=== PATIENT | female | born 1940 | race Caucasian/White ===

== ENCOUNTER → 2016-08-04 | Outpatient (CLI) | payer MEDICARE, BC ==
--- NOTE | 2016-08-04 10:56 | CR ---
EXAMINATION: Two-view chest (PA and Lateral views). HISTORY: Cough. FINDINGS: The trachea is midline. The cardiomediastinal silhouette is within normal limits. No pulmonary infil trates, effusions or pneumothorax. There is mild hyperinflation and interstitial prominence. Aortic calcifications are noted. Osseous structures appear unremarkable. IMPRESSION: No acute cardiopulmonary process.
== END ==
LOC: MW.CHFP 09:35
PROVIDERS: ATTEND Physician Assistant
DX: R05 Cough (principal); J01.00 Acute maxillary sinusitis, unspecified; B96.89 Other specified bacterial agents as the cause of diseases classified elsewhere; R19.7 Diarrhea, unspecified; Z87.891 Personal history of nicotine dependence
CPT/HCPCS: 36415; 71020; 71020-26; 85025; 99203

== ENCOUNTER 2016-08-08 09:06 | Emergency (ER) | payer MEDICARE, BC ==
[2016-08-08] MEDS ORDERED: Sodium Chloride 0.9% 10 ML Syringe FLUSH PRN (09:38)
[2016-08-08] MEDS ORDERED: Sodium Chloride 0.9% 2.5 ML Syringe FLUSH PRN (09:38)
[2016-08-08] MEDS ORDERED: Sodium Chloride 0.9% 1,000 ML IV ONE (09:39)
--- NOTE | 2016-08-08 10:41 | EDM.PDOC ---
ED HPI GENERAL MEDICAL PROBLEM - General Chief Complaint: General Stated Complaint: WEAK Time Seen by Provider: 08/08/16 09:30 Source of Information: Reports: Patient History Limitations: Reports: No limitations - History of Present Illness INITIAL COMMENTS - FREE TEXT/NARRATIVE: History of present illness: [] Patient has had 3 days of diarrhea approximately 3-4 times a day last week and has been having progressive weakness. She denies any fevers or chills, abdominal pain, nausea or vomiting, and she is not had diarrhea for the last [address] Leggett and had some labs checked which were normal. She states her symptoms are not improving. She also has a cough and states that she had a chest x-ray in Dr. Leggett's office which was normal. Review of systems: As per history of present illness and below otherwise all systems reviewed and negative. Past medical history: As per history of present illness and as reviewed below otherwise noncontributory. Surgical history: As per history of present illness and as reviewed below otherwise noncontributory. Social history: No reported history of drug or alcohol abuse. Family history: As per history of present illness and as reviewed below otherwise noncontributory. Physical exam: General: Well developed, well nourished in NAD HEENT: Atraumatic, normocephalic, pupils reactive, negative for conjunctival pallor or scleral icterus, mucous membranes moist, throat clear, neck supple, nontender, trachea midline. Lungs: Clear to auscultation, breath sounds equal bilaterally, chest nontender. Heart: S1S2, regular, negative for clicks, rubs, or JVD. Abdomen: Soft, nondistended, nontender. Negative for masses or hepatosplenomegaly. Negative for costovertebral tenderness. Pelvis: Stable nontender. Genitourinary: Deferred. Rectal: Deferred. Extremities: Atraumatic, negative for cords or calf pain. Neurovascular unremarkable. Neuro: Awake, alert, oriented. Cranial nerves II through XII unremarkable. Cerebellum unremarkable. Motor and sensory unremarkable throughout. Exam nonfocal. Diagnostics: [] Urine labs were checked Therapeutics: [] She was hydrated with IV fluids Impression: [] UTI Plan: [] Macrobid twice a day and Tessalon Perles for cough Definitive disposition and diagnosis as appropriate pending reevaluation and review of above. - Related Data Allergies Allergy/AdvReac Type Severity Reaction Status Date / Time No Known Allergies Allergy Verified 08/08/16 09:30 Home Meds: Home Meds Benzonatate [Tessalon Perles] 100 mg PO BID PRN #10 cap 08/08/16 [Rx] Nitrofurantoin Macrocrystal [Macrodantin] 100 mg PO BID #14 capsule 08/08/16 [Rx ] Past Medical History - Past Health History Medical/Surgical History: Denies Medical/Surgical History Social & Family History - Family History Family Medical History: Noncontributory - Tobacco Use Smoking Status *Q: Former Smoker - Caffeine Use Caffeine Use: Reports: None, Coffee Caffeine Use Comment: 3 drinks/day - Recreational Drug Use Recreational Drug Use: No ED ROS GENERAL - Review of Systems Review Of Systems: See Below (See history of present illness) ED EXAM, GENERAL - Physical Exam Exam: See Below (See history of present illness) Course - Vital Signs Last Recorded V/S: Last Vital Signs Temp 36.4 C 08/08/16 09:31 Pulse 93 08/08/16 09:31 Resp 16 08/08/16 09:31 BP 159/86 H 08/08/16 09:31 Pulse Ox 99 08/08/16 09:31 - Orders/Labs/Meds Orders: Active Orders 24 hr Category Date Time Status CULTURE URINE [RM] Stat Lab 08/08/16 10:10 Received Sodium Chloride 0.9% [Saline Flush] Med 08/08/16 09:38 Active 10 ml FLUSH ASDIRECTED PRN Sodium Chloride 0.9% [Saline Flush] Med 08/08/16 09:38 Active 2.5 ml FLUSH ASDIRECTED PRN Peripheral IV Insertion Adult [OM.PC] Stat Oth 08/08/16 09:38 Ordered Medication Orders Sodium Chloride (Saline Flush) 10 ml FLUSH ASDIRECTED PRN PRN Reason: Keep Vein Open Sodium Chloride (Saline Flush) 2.5 ml FLUSH ASDIRECTED PRN PRN Reason: Keep Vein Open Labs: Laboratory Tests 08/08/16 08/08/16 08/08/16 Range/Units 09:45 09:45 09:45 WBC 7.15 (4.0-11.0) K/uL RBC 4.55 (4.30-5.90) M/uL Hgb 13.5 (12.0-16.0) g/dL Hct 41.0 (36.0-46.0) % MCV 90.1 (80.0-98.0) fL MCH 29.7 (27.0-32.0) pg MCHC 32.9 (31.0-37.0) g/dL RDW Std Deviation 41.5 (28.0-62.0) fl RDW Coeff of Tulio 13 (11.0-15.0) % Plt Count 234 (150-400) K/uL MPV 9.00 (7.40-12.00) fL Neut % (Auto) 71.9 (48.0-80.0) % Lymph % (Auto) 21.7 (16.0-40.0) % Iron % (Auto) 6.2 (0.0-15.0) % Eos % (Auto) 0.1 (0.0-7.0) % Baso % (Auto) 0.1 (0.0-1.5) % Neut # (Auto) 5.1 (1.4-5.7) K/uL Lymph # (Auto) 1.6 (0.6-2.4) K/uL Iron # (Auto) 0.4 (0.0-0.8) K/uL Eos # (Auto) 0.0 (0.0-0.7) K/uL Baso # (Auto) 0.0 (0.0-0.1) K/uL Nucleated RBC % 0.0 /100WBC Nucleated RBCs # 0 K/uL Sodium 142 (136-146) mmol/L Potassium 3.9 (3.5-5.1) mmol/L Chloride 111 H (98-110) mmol/L Carbon Dioxide 21 (21-31) mmol/L BUN 18 (6.0-23.0) mg/dL Creatinine 1.1 (0.6-1.5) mg/dL Est Cr Clr Drug Dosing 41.23 mL/min Estimated GFR (MDRD) 48.4 ml/min Glucose 117 H (60-110) mg/dL Calcium 9.4 (8.8-10.8) mg/dL Total Bilirubin 0.9 (0.1-1.5) mg/dL AST 18 (5-40) IU/L ALT 14 (8-54) IU/L Alkaline Phosphatase 45 (40-150) Troponin I < 0.10 (0.0-0.29) NG/ML Total Protein 7.5 (6.0-8.0) g/dL Albumin 4.0 (3.4-4.8) g/dL Globulin 3.5 (2.0-3.5) g/dL Albumin/Globulin Ratio 1.1 L (1.3-2.8) Urine Color Urine Appearance Urine pH (5.0-8.0) Ur Specific [place] (1.001-1.035) Urine Protein (NEGATIVE) mg/dL Urine Glucose (UA) (NEGATIVE) mg/dL Urine Ketones (NEGATIVE) mg/dL Urine Occult Blood (NEGATIVE) Urine Nitrite (NEGATIVE) Urine Bilirubin (NEGATIVE) Urine Urobilinogen (<2.0) EU/dL Ur Leukocyte Esterase (NEGATIVE) Urine RBC (0-2/HPF) Urine WBC (0-5/HPF) Ur Epithelial Cells (NONE-FEW) Urine Bacteria (NEGATIVE) 08/08/16 Range/Units 10:10 WBC (4.0-11.0) K/uL RBC (4.30-5.90) M/uL Hgb (12.0-16.0) g/dL Hct (36.0-46.0) % MCV (80.0-98.0) fL MCH (27.0-32.0) pg MCHC (31.0-37.0) g/dL RDW Std Deviation (28.0-62.0) fl RDW Coeff of Tulio (11.0-15.0) % Plt Count (150-400) K/uL MPV (7.40-12.00) fL Neut % (Auto) (48.0-80.0) % Lymph % (Auto) (16.0-40.0) % Iron % (Auto) (0.0-15.0) % Eos % (Auto) (0.0-7.0) % Baso % (Auto) (0.0-1.5) % Neut # (Auto) (1.4-5.7) K/uL Lymph # (Auto) (0.6-2.4) K/uL Iron # (Auto) (0.0-0.8) K/uL Eos # (Auto) (0.0-0.7) K/uL Baso # (Auto) (0.0-0.1) K/uL Nucleated RBC % /100WBC Nucleated RBCs # K/uL Sodium (136-146) mmol/L Potassium (3.5-5.1) mmol/L Chloride (98-110) mmol/L Carbon Dioxide (21-31) mmol/L BUN (6.0-23.0) mg/dL Creatinine (0.6-1.5) mg/dL Est Cr Clr Drug Dosing mL/min Estimated GFR (MDRD) ml/min Glucose (60-110) mg/dL Calcium (8.8-10.8) mg/dL Total Bilirubin (0.1-1.5) mg/dL AST (5-40) IU/L ALT (8-54) IU/L Alkaline Phosphatase (40-150) Troponin I (0.0-0.29) NG/ML Total Protein (6.0-8.0) g/dL Albumin (3.4-4.8) g/dL Globulin (2.0-3.5) g/dL Albumin/Globulin Ratio (1.3-2.8) Urine Color YELLOW Urine Appearance CLEAR Urine pH 6.0 (5.0-8.0) Ur Specific [place] >= 1.030 (1.001-1.035) Urine Protein 100 (NEGATIVE) mg/dL Urine Glucose (UA) NEGATIVE (NEGATIVE) mg/dL Urine Ketones 40 H (NEGATIVE) mg/dL Urine Occult Blood LARGE H (NEGATIVE) Urine Nitrite POSITIVE H (NEGATIVE) Urine Bilirubin SMALL H (NEGATIVE) Urine Urobilinogen 1.0 (<2.0) EU/dL Ur Leukocyte Esterase MODERATE (NEGATIVE) Urine RBC 2-3 (0-2/HPF) Urine WBC 8-10 (0-5/HPF) Ur Epithelial Cells FEW (NONE-FEW) Urine Bacteria 1+ H (NEGATIVE) Meds: Medications Generic Name Dose Route Start Last Admin Trade Name Freq PRN Reason Stop Dose Admin Sodium Chloride 10 ml 08/08/16 09:38 Saline Flush FLUSH ASDIRECTED PRN Keep Vein Open Sodium Chloride 2.5 ml 08/08/16 09:38 Saline Flush FLUSH ASDIRECTED PRN Keep Vein Open Discontinued Medications Generic Name Dose Route Start Last Admin Trade Name Freq PRN Reason Stop Dose Admin Sodium Chloride 1,000 mls @ 999 mls/hr 08/08/16 09:39 08/08/16 09:52 Normal Saline IV 08/08/16 10:39 999 mls/hr .Bolus ONE Administration Departure - Departure Time of Disposition: 10:53 Disposition: Home, Self-Care 01 Condition: good Clinical Impression: UTI (urinary tract infection) Qualifiers: Urinary tract infection type: site unspecified Hematuria presence: without hematuria Qualified Code(s): N39.0 - Urinary tract infection, site not specified Prescriptions: Benzonatate [Tessalon Perles] 100 mg PO BID PRN #10 cap PRN Reason: Cough Nitrofurantoin Macrocrystal [Macrodantin] 100 mg PO BID #14 capsule Referrals: PCP,None [Primary Care Provider] - Forms: ED Department Discharge Additional Instructions: The following information is given to patients seen in the emergency department who are being discharged to home. This information is to outline your options for follow-up care. We provide all patients seen in our emergency department with a follow-up referral. The need for follow-up, as well as the timing and circumstances, are variable depending upon the specifics of your emergency department visit. If you don't have a primary care physician on staff, we will provide you with a referral. We always advise you to contact your personal physician following an emergency department visit to inform them of the circumstance of the visit and for follow-up with them and/or the need for any referrals to a consulting specialist. The emergency department will also refer you to a specialist when appropriate. This referral assures that you have the opportunity for follow-up care with a specialist. All of these measure are taken in an effort to provide you with optimal care, which includes your follow-up. Under all circumstances we always encourage you to contact your private physician who remains a resource for coordinating your care. When calling for follow-up care, please make the office aware that this follow-up is from your recent emergency room visit. If for any reason you are refused follow-up, please contact the [facility] Emergency Department at and asked to speak to the emergency department charge nurse. Nitrofurantoin and Tessalon Perles were given. [facility] [address] [place] [id number] - My Orders Last 24 Hours: My Active Orders 08/08/16 09:38 Sodium Chloride 0.9% [Saline Flush] 10 ml FLUSH ASDIRECTED PRN Sodium Chloride 0.9% [Saline Flush] 2.5 ml FLUSH ASDIRECTED PRN Peripheral IV Insertion Adult [OM.PC] Stat 08/08/16 10:10 CULTURE URINE [RM] Stat - Assessment/Plan Last 24 Hours: My Active Orders 08/08/16 09:38 Sodium Chloride 0.9% [Saline Flush] 10 ml FLUSH ASDIRECTED PRN Sodium Chloride 0.9% [Saline Flush] 2.5 ml FLUSH ASDIRECTED PRN Peripheral IV Insertion Adult [OM.PC] Stat 08/08/16 10:10 CULTURE URINE [RM] Stat
[2016-08-08 11:18] VITALS: BP 136/78
== END 2016-08-08 11:07 | disposition home or self-care (01) ==
LOC: MW.ED 09:06
DX: N39.0 Urinary tract infection, site not specified (principal); Z87.891 Personal history of nicotine dependence
CPT/HCPCS: 36415; 80053; 81001; 84484; 85025; 87086; 87088; 87186; 96360; 99285; J7040; 99283

== ENCOUNTER → 2016-08-10 | Outpatient (CLI) | payer MEDICARE, BC | LOC: MW.CHFP 08:00 | PROVIDERS: ATTEND Physician Assistant | DX: N39.0 Urinary tract infection, site not specified (principal) | CPT/HCPCS: G0463 ==

== ENCOUNTER → 2016-08-22 | Outpatient (CLI) | payer MEDICARE, BC | END | disposition home or self-care (01) | LOC: MW.CHFP 09:53 | PROVIDERS: ATTEND Physician Assistant | DX: N39.0 Urinary tract infection, site not specified (principal) | CPT/HCPCS: 81001 ==

== ENCOUNTER 2019-01-04 09:14 | Emergency (ER) | payer MEDICARE, BC ==
[2019-01-04] MEDS ORDERED: Sodium Chloride 0.9% 10 ML Syringe FLUSH PRN (09:28)
[2019-01-04] MEDS ORDERED: Sodium Chloride 0.9% 2.5 ML Syringe FLUSH PRN (09:28)
[2019-01-04] MEDS ORDERED: Sodium Chloride 0.9% 1,000 ML IV ONE (09:28)
--- NOTE | 2019-01-04 09:33 | EDM.PDOC ---
ED HPI GENERAL MEDICAL PROBLEM - General Chief Complaint: Neurological Problem Stated Complaint: DIZZINESS Time Seen by Provider: 01/04/19 09:22 - History of Present Illness INITIAL COMMENTS - FREE TEXT/NARRATIVE: HISTORY AND PHYSICAL: History of present illness: Patient is 78-year-old white female presents with concern of an episode of dizziness that she noticed this morning this was upon awakening there is no associated chest pain shortness of breath nausea vomiting she denies any numbness or weakness this has resolved subsequent. Patient denies prior episodes in the past denies history of IA or CVA Review of systems: As per history of present illness and below otherwise all systems reviewed and negative. Past medical history: As per history of present illness and as reviewed below otherwise noncontributory. Surgical history: As per history of present illness and as reviewed below otherwise noncontributory. Social history: No reported history of drug or alcohol abuse. Family history: As per history of present illness and as reviewed below otherwise noncontributory. Physical exam: HEENT: Atraumatic, normocephalic, pupils reactive, negative for conjunctival pallor or scleral icterus, mucous membranes moist, throat clear, neck supple, nontender, trachea midline. Lungs: Clear to auscultation, breath sounds equal bilaterally, chest nontender. Heart: S1S2, regular, negative for clicks, rubs, or JVD. Abdomen: Soft, nondistended, nontender. Negative for masses or hepatosplenomegaly. Negative for costovertebral tenderness. Pelvis: Stable nontender. Genitourinary: Deferred. Rectal: Deferred. Extremities: Atraumatic, negative for cords or calf pain. Neurovascular unremarkable. Neuro: Awake, alert, oriented. Cranial nerves II through XII unremarkable. Cerebellum unremarkable. Motor and sensory unremarkable throughout. Exam nonfocal. 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 - Related Data Allergies Allergy/AdvReac Type Severity Reaction Status Date / Time No Known Allergies Allergy Verified 08/08/16 09:30 Home Meds: Home Meds . [No Known Home Meds] 01/04/19 [History] Past Medical History - Past Health History Medical/Surgical History: Denies Medical/Surgical History Social & Family History - Family History Family Medical History: Noncontributory - Caffeine Use Caffeine Use: Reports: None, Coffee Caffeine Use Comment: 3 drinks/day ED ROS GENERAL - Review of Systems Review Of Systems: ROS reveals no pertinent complaints other than HPI. ED EXAM, GENERAL - Physical Exam Exam: See Below (Dictation) Course - Vital Signs Text/Narrative:: Patient's emergency room course has been unremarkable I discussed with patient admission for observation patient declined she has personal items to attend to and including her who is currently in hospice care she is asymptomatic this point she is advised to follow-up closely with her private medical doctor and agrees. Last Recorded V/S: Last Vital Signs Temp 36.1 C 01/04/19 09:20 Pulse 74 01/04/19 09:20 Resp 18 01/04/19 09:20 BP 141/75 H 01/04/19 09:20 Pulse Ox 100 01/04/19 09:20 - Orders/Labs/Meds Orders: Active Orders 24 hr Category Date Time Status Cardiac Monitoring [RC] . DIRECTED Care 01/04/19 09:27 Active EKG Documentation Completion [RC] STAT Care 01/04/19 09:27 Active Chest 1V Frontal [CR] Stat Exams 01/04/19 09:28 Taken Head wo Cont [CT] Stat Exams 01/04/19 09:28 Taken CULTURE URINE [RM] Stat Lab 01/04/19 09:35 Received Sodium Chloride 0.9% [Saline Flush] Med 01/04/19 09:28 Active 10 ml FLUSH ASDIRECTED PRN Sodium Chloride 0.9% [Saline Flush] Med 01/04/19 09:28 Active 2.5 ml FLUSH ASDIRECTED PRN Saline Lock Insert [OM.PC] Stat Oth 01/04/19 09:27 Ordered Medication Orders Sodium Chloride (Saline Flush) 10 ml FLUSH ASDIRECTED PRN PRN Reason: Keep Vein Open Last Admin: 01/04/19 09:43 Dose: 10 ml Sodium Chloride (Saline Flush) 2.5 ml FLUSH ASDIRECTED PRN PRN Reason: Keep Vein Open Last Admin: 01/04/19 09:44 Dose: 2.5 ml Labs: Laboratory Tests 01/04/19 01/04/19 01/04/19 Range/Units 09:35 09:40 09:40 WBC 6.59 (4.0-11.0) K/uL RBC 4.59 (4.30-5.90) M/uL Hgb 13.5 (12.0-16.0) g/dL Hct 42.6 (36.0-46.0) % MCV 92.8 (80.0-98.0) fL MCH 29.4 (27.0-32.0) pg MCHC 31.7 (31.0-37.0) g/dL RDW Std Deviation 43.8 (28.0-62.0) fl RDW Coeff of Tulio 13 (11.0-15.0) % Plt Count 246 (150-400) K/uL MPV 8.80 (7.40-12.00) fL Neut % (Auto) 57.2 (48.0-80.0) % Lymph % (Auto) 36.4 (16.0-40.0) % [place] % (Auto) 5.5 (0.0-15.0) % Eos % (Auto) 0.3 (0.0-7.0) % Baso % (Auto) 0.6 (0.0-1.5) % Neut # (Auto) 3.8 (1.4-5.7) K/uL Lymph # (Auto) 2.4 (0.6-2.4) K/uL [place] # (Auto) 0.4 (0.0-0.8) K/uL Eos # (Auto) 0.0 (0.0-0.7) K/uL Baso # (Auto) 0.0 (0.0-0.1) K/uL Nucleated RBC % 0.0 /100WBC Nucleated RBCs # 0 K/uL INR 0.99 Sodium (136-145) mmol/L Potassium (3.5-5.1) mmol/L Chloride (98-107) mmol/L Carbon Dioxide (21.0-32.0) mmol/L BUN (7.0-18.0) mg/dL Creatinine (0.6-1.0) mg/dL Est Cr Clr Drug Dosing Estimated GFR (MDRD) ml/min Glucose (74-106) mg/dL Calcium (8.5-10.1) mg/dL Total Bilirubin (0.2-1.0) mg/dL AST (15-37) IU/L ALT (14-63) IU/L Alkaline Phosphatase (46-116) U/L Troponin I (0.000-0.056) ng/mL Total Protein (6.4-8.2) g/dL Albumin (3.4-5.0) g/dL Globulin (2.6-4.0) g/dL Albumin/Globulin Ratio (0.9-1.6) Urine Color YELLOW Urine Appearance CLEAR Urine pH 5.5 (5.0-8.0) Ur Specific [place] >= 1.030 (1.001-1.035) Urine Protein NEGATIVE (NEGATIVE) mg/dL Urine Glucose (UA) NEGATIVE (NEGATIVE) mg/dL Urine Ketones NEGATIVE (NEGATIVE) mg/dL Urine Occult Blood LARGE H (NEGATIVE) Urine Nitrite NEGATIVE (NEGATIVE) Urine Bilirubin NEGATIVE (NEGATIVE) Urine Urobilinogen 0.2 (<2.0) EU/dL Ur Leukocyte Esterase MODERATE H (NEGATIVE) Urine RBC 10-15 (0-2/HPF) Urine WBC 8-10 (0-5/HPF) Ur Epithelial Cells MODERATE (NONE-FEW) Amorphous Sediment LIGHT (NEGATIVE) Urine Bacteria 1+ H (NEGATIVE) Urine Mucus LIGHT (NONE-MOD) 01/04/19 Range/Units 09:40 WBC (4.0-11.0) K/uL RBC (4.30-5.90) M/uL Hgb (12.0-16.0) g/dL Hct (36.0-46.0) % MCV (80.0-98.0) fL MCH (27.0-32.0) pg MCHC (31.0-37.0) g/dL RDW Std Deviation (28.0-62.0) fl RDW Coeff of Tulio (11.0-15.0) % Plt Count (150-400) K/uL MPV (7.40-12.00) fL Neut % (Auto) (48.0-80.0) % Lymph % (Auto) (16.0-40.0) % [place] % (Auto) (0.0-15.0) % Eos % (Auto) (0.0-7.0) % Baso % (Auto) (0.0-1.5) % Neut # (Auto) (1.4-5.7) K/uL Lymph # (Auto) (0.6-2.4) K/uL [place] # (Auto) (0.0-0.8) K/uL Eos # (Auto) (0.0-0.7) K/uL Baso # (Auto) (0.0-0.1) K/uL Nucleated RBC % /100WBC Nucleated RBCs # K/uL INR Sodium 144 (136-145) mmol/L Potassium 3.8 (3.5-5.1) mmol/L Chloride 109 H (98-107) mmol/L Carbon Dioxide 25.2 (21.0-32.0) mmol/L BUN 15 (7.0-18.0) mg/dL Creatinine 1.4 H (0.6-1.0) mg/dL Est Cr Clr Drug Dosing TNP Estimated GFR (MDRD) 36.5 ml/min Glucose 101 (74-106) mg/dL Calcium 9.4 (8.5-10.1) mg/dL Total Bilirubin 0.7 (0.2-1.0) mg/dL AST 15 (15-37) IU/L ALT 17 (14-63) IU/L Alkaline Phosphatase 52 (46-116) U/L Troponin I < 0.050 (0.000-0.056) ng/mL Total Protein 6.8 (6.4-8.2) g/dL Albumin 3.6 (3.4-5.0) g/dL Globulin 3.2 (2.6-4.0) g/dL Albumin/Globulin Ratio 1.1 (0.9-1.6) Urine Color Urine Appearance Urine pH (5.0-8.0) Ur Specific [place] (1.001-1.035) Urine Protein (NEGATIVE) mg/dL Urine Glucose (UA) (NEGATIVE) mg/dL Urine Ketones (NEGATIVE) mg/dL Urine Occult Blood (NEGATIVE) Urine Nitrite (NEGATIVE) Urine Bilirubin (NEGATIVE) Urine Urobilinogen (<2.0) EU/dL Ur Leukocyte Esterase (NEGATIVE) Urine RBC (0-2/HPF) Urine WBC (0-5/HPF) Ur Epithelial Cells (NONE-FEW) Amorphous Sediment (NEGATIVE) Urine Bacteria (NEGATIVE) Urine Mucus (NONE-MOD) Meds: Medications Generic Name Dose Route Start Last Admin Trade Name Glenn PRN Reason Stop Dose Admin Sodium Chloride 10 ml 01/04/19 09:28 01/04/19 09:43 Saline Flush FLUSH 10 ml ASDIRECTED PRN Administration Keep Vein Open Sodium Chloride 2.5 ml 01/04/19 09:28 01/04/19 09:44 Saline Flush FLUSH 2.5 ml ASDIRECTED PRN Administration Keep Vein Open Discontinued Medications Generic Name Dose Route Start Last Admin Trade Name Jarettq PRN Reason Stop Dose Admin Ciprofloxacin 500 mg 01/04/19 10:34 01/04/19 10:48 Ciprofloxacin Hcl PO 01/04/19 10:35 500 mg ONETIME ONE Administration Sodium Chloride 1,000 mls @ 999 mls/hr 01/04/19 09:28 01/04/19 09:43 Normal Saline IV 01/04/19 10:28 999 mls/hr STAT ONE Administration Departure - Departure Time of Disposition: 11:02 Disposition: Home, Self-Care 01 Condition: Good Clinical Impression: Dizziness, Encounter for medical screening examination - Discharge Information Referrals: PCP,Unknown [Primary Care Provider] - Forms: ED Department Discharge Additional Instructions: The following information is given to patients seen in the emergency department who are being discharged to home. This information is to outline your options for follow-up care. We provide all patients seen in our emergency department with a follow-up referral. The need for follow-up, as well as the timing and circumstances, are variable depending upon the specifics of your emergency department visit. If you don't have a primary care physician on staff, we will provide you with a referral. We always advise you to contact your personal physician following an emergency department visit to inform them of the circumstance of the visit and for follow-up with them and/or the need for any referrals to a consulting specialist. The emergency department will also refer you to a specialist when appropriate. This referral assures that you have the opportunity for followup care with a specialist. All of these measure are taken in an effort to provide you with optimal care, which includes your followup. Under all circumstances we always encourage you to contact your private physician who remains a resource for coordinating your care. When calling for followup care, please make the office aware that this follow-up is from your recent emergency room visit. If for any reason you are refused follow-up, please contact the [facility] emergency department at and asked to speak to the emergency department charge nurse. Follow-up primary medical doctor VALERIA return as needed as discussed - My Orders Last 24 Hours: My Active Orders 01/04/19 09:27 Cardiac Monitoring [RC] . DIRECTED EKG Documentation Completion [RC] STAT Saline Lock Insert [OM.PC] Stat 01/04/19 09:28 Chest 1V Frontal [CR] Stat Head wo Cont [CT] Stat Sodium Chloride 0.9% [Saline Flush] 10 ml FLUSH ASDIRECTED PRN Sodium Chloride 0.9% [Saline Flush] 2.5 ml FLUSH ASDIRECTED PRN 01/04/19 09:35 CULTURE URINE [RM] Stat - Assessment/Plan Last 24 Hours: My Active Orders 01/04/19 09:27 Cardiac Monitoring [RC] . DIRECTED EKG Documentation Completion [RC] STAT Saline Lock Insert [OM.PC] Stat 01/04/19 09:28 Chest 1V Frontal [CR] Stat Head wo Cont [CT] Stat Sodium Chloride 0.9% [Saline Flush] 10 ml FLUSH ASDIRECTED PRN Sodium Chloride 0.9% [Saline Flush] 2.5 ml FLUSH ASDIRECTED PRN 01/04/19 09:35 CULTURE URINE [RM] Stat
[2019-01-04 10:16] LABS: BLOOD UREA NITROGEN,BUN 15 mg/dL (7.0-18.0); CARBON DIOXIDE,CO2 25.2 mmol/L (21.0-32.0); CHLORIDE,CL 109 mmol/L (98-107); GLUCOSE RANDOM 101 mg/dL (74-106); POTASSIUM,K 3.8 mmol/L (3.5-5.1); SODIUM,NA 144 mmol/L (136-145)
[2019-01-04] MEDS ORDERED: Ciprofloxacin 500 MG Tab PO ONE (10:34)
--- NOTE | 2019-01-04 11:14 | CR ---
INDICATION: Pain. Shortness of breath. COMPARISON: Chest x-ray dated 15 November 2018. FINDINGS: A single portable chest x-ray shows a normal cardiac silhouette. The lungs show no focal pulmonary opacities. Sharp pleural margins. No pneumothorax. IMPRESSION: No evidence of acute pulmonary abnormalities. Dictated by Shawn Bryant MD @ 01/04/2019 11:12:25 AM Dictated by: Shawn Bryant MD @ 01/04/2019 11:12:39 (Electronically Signed)
--- NOTE | 2019-01-04 11:17 | CT ---
INDICATION: Headache. Dizziness. Lightheaded. TECHNIQUE: Scanning of the head was performed without IV contrast material. Coronal and sagittal reconstructions were obtained. COMPARISON: None. FINDINGS: No intracranial hemorrhage is demonstrated. No positive mass effect is evident. Differentiation between the cox matter and white matter is preserved. There is mild, nonspecific decreased attenuation in the cerebral white matter which is most likely due to aging/chronic microvascular ischemic disease. The ventricles and other subarachnoid spaces are within normal limits for the patient`s age. No calvarial abnormality is evident. The visualized paranasal and mastoid sinuses are clear. IMPRESSION: 1. No acute abnormality demonstrated. 2. Mild, nonspecific cerebral white matter disease, most likely due to aging/chronic microvascular ischemic disease. Please note that all CT scans at this facility use dose modulation, iterative reconstruction, and/or weight-based dosing when appropriate to reduce radiation dose to as low as reasonably achievable. Dictated by Ildefonso Larson MD @ Jan 04 2019 11:13AM Signed by Dr. Ildefonso Larson @ Jan 04 2019 11:16AM
[2019-01-04 11:47] VITALS: BP 138/74
== END 2019-01-04 11:44 | disposition home or self-care (01) ==
LOC: MW.ED 09:14
DX: R42 Dizziness and giddiness (principal)
CPT/HCPCS: 36415; 70450; 71045; 80053; 81001; 84484; 85025; 85610; 87086; 93005; 96360; 99284; A9270; J7040

== ENCOUNTER 2020-06-04 07:56 | Emergency (ER) | payer MEDICARE, BC ==
[2020-06-04] MEDS ORDERED: Sodium Chloride 0.9% 2.5 ML Syringe FLUSH PRN (08:15)
[2020-06-04] MEDS ORDERED: Meclizine 25 MG Tab PO ONE (08:15)
[2020-06-04] MEDS ORDERED: Sodium Chloride 0.9% 10 ML Syringe FLUSH PRN (08:15)
[2020-06-04] MEDS ORDERED: Sodium Chloride 0.9% 1,000 ML IV ONE (08:15)
--- NOTE | 2020-06-04 08:27 | EDM.PDOC ---
ED HPI GENERAL MEDICAL PROBLEM - General Chief Complaint: General Stated Complaint: DIZZY, LIGHT HEADED, VOMITING Time Seen by Provider: 06/04/20 07:57 Source of Information: Reports: Patient History Limitations: Reports: No Limitations - History of Present Illness INITIAL COMMENTS - FREE TEXT/NARRATIVE: Six 79-year-old female with history of UTI presents with dizziness. She woke up feeling asymptomatic, she was getting up and felt acute onset dizziness. She describes it as that things were going to the right and she was unable to focus. Associated with vomiting. Symptoms lasted about 30 minutes. Patient denies fever, chills, headache, chest pain, shortness of breath, abdominal pain, focal numbness or weakness, tinnitus, hearing loss, dysuria. She did have diarrhea today. ROS: A 10-point review of systems, other than pertinent positives and negatives as stated per HPI, is otherwise negative Past medical history: No additional pertinent history Past Surgical history: No additional pertinent history Social history: No additional pertinent history Family history: No additional pertinent history PHYSICAL EXAM General: AOx4, GCS = 15, No distress HEENT: dry mucous membrane, horizontal fatigable nystagmus. Neck: supple, no meningismus, no Kernig or Brudzinski Cardiac: S1S2 RRR Respiratory: CTAB, no crackles or rales, no wheezing Abdomen: Soft, nontender, no rebound or guarding, nondistended, no pulsatile mass. Back: nontender Musculoskeletal: NVI distally, no deformity Neuro: No focal deficits, CN 2 - 12 WNL. Steady gait - Related Data Allergies Allergy/AdvReac Type Severity Reaction Status Date / Time No Known Allergies Allergy Verified 06/04/20 08:05 Home Meds: Home Meds Meclizine [Antivert] 25 mg PO TID PRN #15 tab 06/04/20 [Rx] Past Medical History - Past Health History Medical/Surgical History: Denies Medical/Surgical History HEENT History: Reports: None Cardiovascular History: Reports: None Respiratory History: Reports: None Gastrointestinal History: Reports: None Genitourinary History: Reports: None [employer] History: Reports: None, Musculoskeletal History: Reports: None Neurological History: Reports: None Psychiatric History: Reports: None Endocrine/Metabolic History: Reports: None Hematologic History: Reports: None Immunologic History: Reports: None Oncologic (Cancer) History: Reports: None Dermatologic History: Reports: None - Infectious Disease History Infectious Disease History: Reports: Chicken Pox, Measles, Mumps - Past Surgical History Head Surgeries/Procedures: Reports: None Social & Family History - Family History Family Medical History: No Pertinent Family History - Tobacco Use Tobacco Use Status *Q: Never Tobacco User - Caffeine Use Caffeine Use: Reports: None, Coffee Caffeine Use Comment: 3 drinks/day - Recreational Drug Use Recreational Drug Use: No ED ROS GENERAL - Review of Systems Review Of Systems: See Below (see dictation) ED EXAM, GENERAL - Physical Exam Exam: See Below (see dictation) #1 Interpretation EKG Interpretation Comments: Heart rate = 63 bpm, normal sinus rhythm, normal QRS interval, no STEMI. EKG and rhythm strip interpreted by me at 0823 Course - Vital Signs Last Recorded V/S: Last Vital Signs Temp 96 F L 06/04/20 08:02 Pulse 76 06/04/20 08:02 Resp 19 06/04/20 08:02 BP 180/76 H 06/04/20 08:02 Pulse Ox 99 06/04/20 08:02 - Orders/Labs/Meds Orders: Active Orders 24 hr Category Date Time Status Cardiac Monitoring [RC] . DIRECTED Care 06/04/20 08:15 Active Pulse Oximetry [RC] ASDIRECTED Care 06/04/20 08:15 Active Sodium Chloride 0.9% [Saline Flush] Med 06/04/20 08:15 Active 10 ml FLUSH ASDIRECTED PRN Sodium Chloride 0.9% [Saline Flush] Med 06/04/20 08:15 Active 2.5 ml FLUSH ASDIRECTED PRN Saline Lock Insert [OM.PC] Stat Oth 06/04/20 08:15 Ordered Medication Orders Sodium Chloride (Saline Flush) 10 ml FLUSH ASDIRECTED PRN PRN Reason: Keep Vein Open Last Admin: 06/04/20 08:32 Dose: 10 ml Documented by: DAVID Sodium Chloride (Saline Flush) 2.5 ml FLUSH ASDIRECTED PRN PRN Reason: Keep Vein Open Last Admin: 06/04/20 08:35 Dose: 2.5 ml Documented by: DAVID Labs: Laboratory Tests 06/04/20 06/04/20 06/04/20 Range/Units 08:30 08:30 10:24 WBC 10.29 (4.0-11.0) K/uL RBC 4.51 (4.30-5.90) M/uL Hgb 13.5 (12.0-16.0) g/dL Hct 41.7 (36.0-46.0) % MCV 92.5 (80.0-98.0) fL MCH 29.9 (27.0-32.0) pg MCHC 32.4 (31.0-37.0) g/dL RDW Std Deviation 42.4 (28.0-62.0) fl RDW Coeff of Tulio 13 (11.0-15.0) % Plt Count 264 (150-400) K/uL MPV 8.80 (7.40-12.00) fL Neut % (Auto) 83.2 H (48.0-80.0) % Lymph % (Auto) 13.5 L (16.0-40.0) % Barry % (Auto) 2.9 (0.0-15.0) % Eos % (Auto) 0.2 (0.0-7.0) % Baso % (Auto) 0.2 (0.0-1.5) % Neut # (Auto) 8.6 H (1.4-5.7) K/uL Lymph # (Auto) 1.4 (0.6-2.4) K/uL Barry # (Auto) 0.3 (0.0-0.8) K/uL Eos # (Auto) 0.0 (0.0-0.7) K/uL Baso # (Auto) 0.0 (0.0-0.1) K/uL Nucleated RBC % 0.0 /100WBC Nucleated RBCs # 0 K/uL Sodium 143 (136-145) mmol/L Potassium 4.0 (3.5-5.1) mmol/L Chloride 108 H (98-107) mmol/L Carbon Dioxide 23.5 (21.0-32.0) mmol/L BUN 17 (7.0-18.0) mg/dL Creatinine 1.4 H (0.6-1.0) mg/dL Est Cr Clr Drug Dosing 33.20 mL/min Estimated GFR (MDRD) 36.4 ml/min Glucose 155 H (74-106) mg/dL Calcium 9.4 (8.5-10.1) mg/dL Phosphorus 2.3 L (2.6-4.7) mg/dL Magnesium 2.0 (1.8-2.4) mg/dL Total Bilirubin 0.6 (0.2-1.0) mg/dL AST 20 (15-37) IU/L ALT 26 (14-63) IU/L Alkaline Phosphatase 53 (46-116) U/L Troponin I < 0.050 (0.000-0.056) ng/mL Total Protein 7.2 (6.4-8.2) g/dL Albumin 3.7 (3.4-5.0) g/dL Globulin 3.5 (2.6-4.0) g/dL Albumin/Globulin Ratio 1.1 (0.9-1.6) Urine Color YELLOW Urine Appearance CLEAR Urine pH 7.0 (5.0-8.0) Ur Specific [place] 1.020 (1.001-1.035) Urine Protein NEGATIVE (NEGATIVE) mg/dL Urine Glucose (UA) NEGATIVE (NEGATIVE) mg/dL Urine Ketones 15 H (NEGATIVE) mg/dL Urine Occult Blood SMALL H (NEGATIVE) Urine Nitrite NEGATIVE (NEGATIVE) Urine Bilirubin NEGATIVE (NEGATIVE) Urine Urobilinogen 0.2 (<2.0) EU/dL Ur Leukocyte Esterase NEGATIVE (NEGATIVE) Urine RBC 0-2 (0-2/HPF) Urine WBC 0-1 (0-5/HPF) Ur Epithelial Cells OCCASIONAL (NONE-FEW) Urine Bacteria RARE (NEGATIVE) Meds: Medications Generic Name Dose Route Start Last Admin Trade Name Freq PRN Reason Stop Dose Admin Sodium Chloride 10 ml 06/04/20 08:15 06/04/20 08:32 Saline Flush FLUSH 10 ml ASDIRECTED PRN Administration Keep Vein Open Sodium Chloride 2.5 ml 06/04/20 08:15 06/04/20 08:35 Saline Flush FLUSH 2.5 ml ASDIRECTED PRN Administration Keep Vein Open Discontinued Medications Generic Name Dose Route Start Last Admin Trade Name Jarettq PRN Reason Stop Dose Admin Sodium Chloride 1,000 mls @ 999 mls/hr 06/04/20 08:15 06/04/20 08:31 Normal Saline IV 06/04/20 09:15 999 mls/hr .Bolus ONE Administration Meclizine HCl 25 mg 06/04/20 08:15 06/04/20 08:31 Antivert PO 06/04/20 08:16 25 mg ONETIME ONE Administration - Re-Assessments/Exams Free Text/Narrative Re-Assessment/Exam: 06/04/20 08:24 Ordered IV fluids and meclizine p.o. 06/04/20 11:26 After meclizine in the ER, the patient improved and is currently stable for discharge. I performed a repeat exam and did not appreciate new abnormal findings. Patient exhibits normal vital signs and has a normal gait on road test. I advised the patient to return to the ER for reevaluation if symptoms worsened, including fever, worsening pain, or any other worrisome symptoms. I instructed the patient to follow up with their PCP within 2-3 days. MEDICAL DECISION MAKING: I reviewed the patients past medical records, lab and radiographic findings. I discussed the case with the patient. My differential diagnosis included: Vertigo, CVA, electrolyte abnormality, BPPV. Patient's symptoms today are consistent with peripheral vertigo. I do not suspect central etiology, stroke, SAH, meningitis, or any severe infection. Patient's dizziness resolved with ED treatment, and there were no other focal neurological findings or additional complaints. Pt well appearing, ambulatory on own in ED w/o difficulty. I instructed the patient to return immediately for severe, persistent dizziness, vomiting, fever, focal weakness, change in mental status, headache or other concerns. Pt voiced under-standing and questions answered. Departure - Departure Time of Disposition: 11:07 Disposition: Home, Self-Care 01 Condition: Good Clinical Impression: Dizziness - Discharge Information *PRESCRIPTION DRUG MONITORING PROGRAM REVIEWED*: Not Applicable *COPY OF PRESCRIPTION DRUG MONITORING REPORT IN PATIENT ERROL: Not Applicable Prescriptions: Meclizine [Antivert] 25 mg PO TID PRN #15 tab PRN Reason: Dizziness Instructions: How to Perform the Vanessa Maneuver, Benign Positional Vertigo, Dizziness, [id number] Referrals: Michael Palacios MD [Primary Care Provider] - 3 Days Forms: ED Department Discharge Additional Instructions: The need for follow-up, as well as the timing and circumstances, are variable depending upon the specifics of your emergency department visit. If you don't have a primary care physician on staff, we will provide you with a referral. We always advise you to contact your personal physician following an emergency department visit to inform them of the circumstance of the visit and for follow-up with them and/or the need for any referrals to a consulting specialist. The emergency department will also refer you to a specialist when appropriate. This referral assures that you have the opportunity for follow-up care with a specialist. All of these measure are taken in an effort to provide you with optimal care, which includes your follow-up. Under all circumstances we always encourage you to contact your private physician who remains a resource for coordinating your care. When calling for follow-up care, please make the office aware that this follow-up is from your recent emergency room visit. If for any reason you are refused follow-up, please contact the Emergency Department at and asked to speak to the emergency department charge nurse. If you do not have a primary care doctor, please follow up with the clinics below within 3-5 days. [facility] - [facility] Care [address] [place] [address] [id number] [address] [address] Sepsis Event Note (ED) - Evaluation Sepsis Screening Result: No Definite Risk - Focused Exam Vital Signs: Vital Signs Temp Pulse Resp BP Pulse Ox 06/04/20 08:02 96 F L 76 19 180/76 H 99 - My Orders Last 24 Hours: My Active Orders 06/04/20 08:15 Cardiac Monitoring [RC] . DIRECTED Pulse Oximetry [RC] ASDIRECTED Sodium Chloride 0.9% [Saline Flush] 10 ml FLUSH ASDIRECTED PRN Sodium Chloride 0.9% [Saline Flush] 2.5 ml FLUSH ASDIRECTED PRN Saline Lock Insert [OM.PC] Stat - Assessment/Plan Last 24 Hours: My Active Orders 06/04/20 08:15 Cardiac Monitoring [RC] . DIRECTED Pulse Oximetry [RC] ASDIRECTED Sodium Chloride 0.9% [Saline Flush] 10 ml FLUSH ASDIRECTED PRN Sodium Chloride 0.9% [Saline Flush] 2.5 ml FLUSH ASDIRECTED PRN Saline Lock Insert [OM.PC] Stat
[2020-06-04 09:08] LABS: BLOOD UREA NITROGEN,BUN 17 mg/dL (7.0-18.0); CARBON DIOXIDE,CO2 23.5 mmol/L (21.0-32.0); CHLORIDE,CL 108 mmol/L (98-107); GLUCOSE RANDOM 155 mg/dL (74-106); SODIUM,NA 143 mmol/L (136-145)
--- NOTE | 2020-06-04 09:25 | CT ---
INDICATION: Dizziness. COMPARISON: CT head 01/04/2019. TECHNIQUE: CT of the head without IV contrast. Coronal and sagittal reconstructions are provided. FINDINGS: No intracranial hemorrhage, mass effect, or evidence of acute infarct. No midline shift. No abnormal extra-axial fluid collections. Normal caliber ventricular system. Mild chronic small vessel ischemic disease. Stable tiny physiologic calcification in the left basal ganglia. Orbits and extraocular muscles are symmetric. Polyp or mucous retention cyst in the inferior right maxillary sinus. The paranasal sinuses and mastoid air cells are otherwise clear. No acute fracture. Soft tissues are unremarkable. IMPRESSION: : No acute intracranial findings. Please note that all CT scans at this facility use dose modulation, iterative reconstruction, and/or weight-based dosing when appropriate to reduce radiation dose to as low as reasonably achievable. Dictated by Kayleigh Vargas MD @ Jun 04 2020 9:18AM Signed by Dr. Kayleigh Vargas @ Jun 04 2020 9:23AM
--- NOTE | 2020-06-04 09:29 | CR ---
INDICATION: Dizzy TECHNIQUE: Chest 2 view. COMPARISON: Chest radiograph 01/04/2019. FINDINGS: No focal consolidation, pleural effusion, or pneumothorax. Nipple shadow projected over the right lower lung laterally. Normal heart size and pulmonary vascularity. Slight aortic arch calcification. The bones are unremarkable. IMPRESSION: No acute cardiopulmonary findings. Dictated by Kayleigh Vargas MD @ Jun 04 2020 9:25AM Signed by Dr. Kayleigh Vargas @ Jun 04 2020 9:27AM
[2020-06-04 15:20] VITALS: BP 149/72; PULSE 72
== END 2020-06-04 11:35 | disposition home or self-care (01) ==
LOC: MW.ED 07:56
DX: R42 Dizziness and giddiness (principal)
CPT/HCPCS: 36415; 70450; 71045; 80053; 81001; 83735; 84100; 84484; 85025; 93005; 99284; A9270; J7030; 93010

== ENCOUNTER 2020-11-30 16:30 | Emergency (ER) | payer MEDICARE, BC ==
--- NOTE | 2020-11-30 16:40 | EDM.PDOC ---
ED HPI GENERAL MEDICAL PROBLEM - General Chief Complaint: Chest Pain Stated Complaint: CHEST PAIN Time Seen by Provider: 11/30/20 16:31 Source of Information: Reports: Patient History Limitations: Reports: No Limitations - History of Present Illness INITIAL COMMENTS - FREE TEXT/NARRATIVE: 80-year-old female no past medical history presents for midepigastric pain. Patient states that roughly 2 hours prior to arrival she began to experience a discomfort in her mid epigastrium. It is nonradiating. She states it feels like "gas pain". She states like she feels like she needs to belch but she is unable to. She notes her last bowel movement was about 2 days ago. She does note that she was having some diarrhea a few days ago and took some Imodium and has not had a bowel movement since then. She denies any associated shortness of breath, vomiting, diaphoresis. She was at rest when this pain happened. Left Chest Pain Score (Numeric/FACES): 7 - Related Data Allergies Allergy/AdvReac Type Severity Reaction Status Date / Time No Known Allergies Allergy Verified 06/04/20 08:05 Home Meds: Home Meds Meclizine [Antivert] 25 mg PO TID PRN #15 tab 06/04/20 [Rx] Omeprazole 20 mg PO DAILY #20 capsule. 11/30/20 [Rx] Past Medical History - Past Health History Medical/Surgical History: Denies Medical/Surgical History HEENT History: Reports: None Cardiovascular History: Reports: None Respiratory History: Reports: None Gastrointestinal History: Reports: None Genitourinary History: Reports: None [employer] History: Reports: None, Musculoskeletal History: Reports: None Neurological History: Reports: None Psychiatric History: Reports: None Endocrine/Metabolic History: Reports: None Hematologic History: Reports: None Immunologic History: Reports: None Oncologic (Cancer) History: Reports: None Dermatologic History: Reports: None - Infectious Disease History Infectious Disease History: Reports: Chicken Pox, Measles, Mumps - Past Surgical History Head Surgeries/Procedures: Reports: None Social & Family History - Family History Family Medical History: No Pertinent Family History - Caffeine Use Caffeine Use: Reports: None, Coffee Caffeine Use Comment: 3 drinks/day ED ROS GENERAL - Review of Systems Review Of Systems: Comprehensive ROS is negative, except as noted in HPI. ED EXAM, GENERAL - Physical Exam Exam: See Below Exam Limited By: No Limitations General Appearance: Alert, WD/WN, No Apparent Distress Ears: Hearing Grossly Normal Throat/Mouth: Normal Voice, No Airway Compromise Head: Atraumatic, Normocephalic Neck: Normal Inspection Respiratory/Chest: No Respiratory Distress, Lungs Clear, Normal Breath Sounds, No Accessory Muscle Use Cardiovascular: Normal Peripheral Pulses, Regular Rate, Rhythm GI/Abdominal: Soft, Non-Tender Extremities: Normal Inspection Neurological: Alert, Normal Cognition, Normal Gait Psychiatric: Normal Affect, Normal Mood Skin Exam: Warm, Dry, Intact, Normal Color #1 Interpretation EKG Date: 11/30/20 Time: 16:36 Rhythm: NSR Rate (Beats/Min): 83 Hanahan: Normal P-Wave: Present QRS: Normal ST-T: Normal QT: Normal CA/PQ Interval: 196 Comparison: NA - No Prior EKG (no ischemic changes) Course - Vital Signs Last Recorded V/S: Last Vital Signs Temp 98.3 F 11/30/20 16:36 Pulse 86 11/30/20 16:36 Resp 20 11/30/20 16:36 BP 162/75 H 11/30/20 16:36 Pulse Ox 100 11/30/20 16:36 - Orders/Labs/Meds Orders: Active Orders 24 hr Category Date Time Status EKG Documentation Completion [RC] STAT Care 11/30/20 16:45 Active Abdomen Series w Chest 1V [CR] Stat Exams 11/30/20 16:46 Taken Sodium Chloride 0.9% [Saline Flush] Med 11/30/20 16:45 Active 10 ml FLUSH ASDIRECTED PRN Sodium Chloride 0.9% [Saline Flush] Med 11/30/20 16:45 Active 2.5 ml FLUSH ASDIRECTED PRN Saline Lock Insert [OM.PC] Stat Oth 11/30/20 16:45 Ordered Medication Orders Sodium Chloride (Sodium Chloride 0.9% 10 Ml Syringe) 10 ml FLUSH ASDIRECTED PRN PRN Reason: Keep Vein Open Last Admin: 11/30/20 17:46 Dose: 10 ml Documented by: DAVID Sodium Chloride (Sodium Chloride 0.9% 2.5 Ml Syringe) 2.5 ml FLUSH ASDIRECTED PRN PRN Reason: Keep Vein Open Last Admin: 11/30/20 17:46 Dose: 2.5 ml Documented by: DAVID Labs: Laboratory Tests 11/30/20 11/30/20 11/30/20 Range/Units 17:10 17:10 17:10 WBC 5.34 (4.0-11.0) K/uL RBC 4.17 L (4.30-5.90) M/uL Hgb 12.5 (12.0-16.0) g/dL Hct 37.7 (36.0-46.0) % MCV 90.4 (80.0-98.0) fL MCH 30.0 (27.0-32.0) pg MCHC 33.2 (31.0-37.0) g/dL RDW Std Deviation 42.7 (28.0-62.0) fl RDW Coeff of Tulio 13 (11.0-15.0) % Plt Count 230 (150-400) K/uL MPV 8.60 (7.40-12.00) fL Neut % (Auto) 79.6 (48.0-80.0) % Lymph % (Auto) 10.1 L (16.0-40.0) % Rice % (Auto) 9.7 (0.0-15.0) % Eos % (Auto) 0.2 (0.0-7.0) % Baso % (Auto) 0.4 (0.0-1.5) % Neut # (Auto) 4.3 (1.4-5.7) K/uL Lymph # (Auto) 0.5 L (0.6-2.4) K/uL Rice # (Auto) 0.5 (0.0-0.8) K/uL Eos # (Auto) 0.0 (0.0-0.7) K/uL Baso # (Auto) 0.0 (0.0-0.1) K/uL Nucleated RBC % 0.0 /100WBC Nucleated RBCs # 0 K/uL Sodium 138 (136-145) mmol/L Potassium 3.9 (3.5-5.1) mmol/L Chloride 107 (98-107) mmol/L Carbon Dioxide 22.9 (21.0-32.0) mmol/L BUN 14 (7.0-18.0) mg/dL Creatinine 1.3 H (0.6-1.0) mg/dL Est Cr Clr Drug Dosing 33.42 mL/min Estimated GFR (MDRD) 39.5 ml/min Glucose 133 H (74-106) mg/dL Lactic Acid 1.1 (0.4-2.0) mmol/L Calcium 8.8 (8.5-10.1) mg/dL Magnesium 2.1 (1.8-2.4) mg/dL Total Bilirubin 0.4 (0.2-1.0) mg/dL AST 16 (15-37) IU/L ALT 17 (14-63) IU/L Alkaline Phosphatase 58 (46-116) U/L Troponin I < 0.050 (0.000-0.056) ng/mL Total Protein 6.8 (6.4-8.2) g/dL Albumin 3.7 (3.4-5.0) g/dL Globulin 3.1 (2.6-4.0) g/dL Albumin/Globulin Ratio 1.2 (0.9-1.6) Lipase 77 (73-393) U/L Meds: Medications Generic Name Dose Route Start Last Admin Trade Name Freq PRN Reason Stop Dose Admin Sodium Chloride 10 ml 11/30/20 16:45 11/30/20 17:46 Sodium Chloride 0.9% 10 Ml Syringe FLUSH 10 ml ASDIRECTED PRN Administration Keep Vein Open Sodium Chloride 2.5 ml 11/30/20 16:45 11/30/20 17:46 Sodium Chloride 0.9% 2.5 Ml Syringe FLUSH 2.5 ml ASDIRECTED PRN Administration Keep Vein Open Discontinued Medications Generic Name Dose Route Start Last Admin Trade Name Freq PRN Reason Stop Dose Admin Al Hydroxide/Mg Hydroxide 15 0 ml 11/30/20 16:45 11/30/20 17:45 ml/ Lidocaine HCl 5 ml PO 11/30/20 16:46 1 each ONETIME ONE Administration Pantoprazole Sodium 40 mg/ 10 mls @ 300 mls/hr 11/30/20 16:45 11/30/20 17:45 Sodium Chloride IV 11/30/20 16:46 300 mls/hr NOW ONE Administration Simethicone 80 mg 11/30/20 16:55 11/30/20 17:45 Simethicone 80 Mg Tab.Chew PO 11/30/20 16:56 80 mg ONETIME ONE Administration - Re-Assessments/Exams Free Text/Narrative Re-Assessment/Exam: 11/30/20 18:03 Patient's pain is resolved after medications. Labs are unremarkable. Had a long discussion with patient regarding the importance of follow-up with primary care physician and return precautions. Will discharge with a short course of Pe pcid. Departure - Departure Time of Disposition: 18:03 Disposition: Home, Self-Care 01 Condition: Good Clinical Impression: Epigastric pain - Discharge Information Prescriptions: Omeprazole 20 mg PO DAILY #20 capsule. Instructions: Abdominal Pain, Adult Referrals: Michael Palacios MD [Primary Care Provider] - Forms: ED Department Discharge Care Plan Goals: The following information is given to patients seen in the emergency department who are being discharged to home. This information is to outline your options for follow-up care. We provide all patients seen in our emergency department with a follow-up referral. The need for follow-up, as well as the timing and circumstances, are variable depending upon the specifics of your emergency department visit. If you don't have a primary care physician on staff, we will provide you with a referral. We always advise you to contact your personal physician following an emergency department visit to inform them of the circumstance of the visit and for follow-up with them and/or the need for any referrals to a consulting specialist. The emergency department will also refer you to a specialist when appropriate. This referral assures that you have the opportunity for follow-up care with a specialist. All of these measure are taken in an effort to provide you with optimal care, which includes your follow-up. Under all circumstances we always encourage you to contact your private physician who remains a resource for coordinating your care. When calling for follow-up care, please make the office aware that this follow-up is from your recent emergency room visit. If for any reason you are refused follow-up, please contact the [facility] Emergency Department at and asked to speak to the emergency department charge nurse. Please follow up with your primary care physician. If you do not have a primary care physician, see below: [facility] [address] [place] [id number] [facility] [address] [place] [id number] [facility] [address] [place] [id number] Sepsis Event Note (ED) - Focused Exam Vital Signs: Vital Signs Temp Pulse Resp BP Pulse Ox 11/30/20 16:36 98.3 F 86 20 162/75 H 100 - My Orders Last 24 Hours: My Active Orders 11/30/20 16:45 EKG Documentation Completion [RC] STAT Sodium Chloride 0.9% [Saline Flush] 10 ml FLUSH ASDIRECTED PRN Sodium Chloride 0.9% [Saline Flush] 2.5 ml FLUSH ASDIRECTED PRN Saline Lock Insert [OM.PC] Stat 11/30/20 16:46 Abdomen Series w Chest 1V [CR] Stat - Assessment/Plan Last 24 Hours: My Active Orders 11/30/20 16:45 EKG Documentation Completion [RC] STAT Sodium Chloride 0.9% [Saline Flush] 10 ml FLUSH ASDIRECTED PRN Sodium Chloride 0.9% [Saline Flush] 2.5 ml FLUSH ASDIRECTED PRN Saline Lock Insert [OM.PC] Stat 11/30/20 16:46 Abdomen Series w Chest 1V [CR] Stat
[2020-11-30] MEDS ORDERED: Alum Hydrox/Mag Hydrox/Simeth 15 ML, Lidocaine 2% 5 ML PO ONE ×2 (16:45)
[2020-11-30] MEDS ORDERED: Pantoprazole 40 MG in Sodium Chloride 0.9% 10 ML IV ONE (16:45)
[2020-11-30] MEDS ORDERED: Sodium Chloride 0.9% 10 ML Syringe FLUSH PRN (16:45)
[2020-11-30] MEDS ORDERED: Sodium Chloride 0.9% 2.5 ML Syringe FLUSH PRN (16:45)
[2020-11-30] MEDS ORDERED: Simethicone 80 MG Tab.Chew PO ONE (16:55)
[2020-11-30 17:35] LABS: BLOOD UREA NITROGEN,BUN 14 mg/dL (7.0-18.0); CARBON DIOXIDE,CO2 22.9 mmol/L (21.0-32.0); CHLORIDE,CL 107 mmol/L (98-107); GLUCOSE RANDOM 133 mg/dL (74-106); LIPASE 77 U/L (73-393); POTASSIUM,K 3.9 mmol/L (3.5-5.1); SODIUM,NA 138 mmol/L (136-145)
[2020-11-30 18:34] VITALS: BP 137/90; PULSE 72
--- NOTE | 2020-11-30 19:04 | CR ---
INDICATION: Gas pains. COMPARISON: 06/04/2020 chest radiographs. FINDINGS/IMPRESSION: Upright views of the chest and supine and upright views of the abdomen were performed. Bowel gas pattern is within normal limits. No free air is identified. Small calcified phleboliths are noted in the low pelvis. Scattered atherosclerotic vascular calcifications are noted in the abdomen and pelvis. No acute pulmonary infiltrates are seen. No pleural effusions. Heart size is normal. Spinal degenerative changes are present. Dictated by Aneesh Merchant MD @ 11/30/2020 7:03:47 PM Dictated by: Aneesh Merchant MD @ 11/30/2020 19:04:27 (Electronically Signed)
== END 2020-11-30 18:15 | disposition home or self-care (01) ==
LOC: MW.ED 16:30
DX: R10.13 Epigastric pain (principal)
CPT/HCPCS: 36415; 74022; 80053; 83605; 83690; 83735; 84484; 85025; 93005; 96374; 99284; A9270; C9113

== ENCOUNTER 2020-12-05 15:42 | Inpatient (IN) | payer MEDICARE, BC ==
[2020-12-05] MEDS ORDERED: Sodium Chloride 0.9% 10 ML Syringe FLUSH PRN ×2 (16:04→16:16)
[2020-12-05] MEDS ORDERED: Sodium Chloride 0.9% 2.5 ML Syringe FLUSH PRN ×2 (16:04→16:16)
--- NOTE | 2020-12-05 16:08 | EDM.PDOC ---
ED HPI GENERAL MEDICAL PROBLEM - General Chief Complaint: Genitourinary Problem Stated Complaint: WEAKNESS, POSSIBLE DEHYDRATION Time Seen by Provider: 12/05/20 15:44 - History of Present Illness INITIAL COMMENTS - FREE TEXT/NARRATIVE: History of present illness: [] The patient was here 30 November and saw one of my partners. At that time she had some epigastric pain she felt like gas. EKG and labs were unremarkable. She felt better with medication. It was noted at that time that she had had some episodes of diarrhea prior to that. The patient came back feeling weak and essentially overwhelmed with weakness 3 days ago and saw gynecology who put her on an antibiotic for bacteriuria. Review of the chart does not show any culture pending. The patient has had liquid diarrhea a few times yesterday. She feels overwhelme d with weakness. She denies pain at this time. She is not subjectively short of breath but she appears to be working to breathe according to the daughter and on inspection. Her oxygen saturation is in the high 70s. It was normal yesterday. They use a sat monitor that her late had because he had lung cancer. Review of systems: As per history of present illness and below otherwise all systems reviewed and negative. Past medical history: As per history of present illness and as reviewed below otherwise noncontributory. Surgical history: As per history of present illness and as reviewed below otherwise noncontributory. Social history: No reported history of drug or alcohol abuse. Family history: As per history of present illness and as reviewed below otherwise noncontri butory. Physical exam: Constitutional - well developed, well-nourished and in no acute distress HEENT - normocephalic, no evidence of trauma - external nose and mouth normal - no mass in neck and no JVD - mucosae moist EYES - full EOM, PERRL, no icterus - no evidence of inflammation, injection, or drainage Respiratory - moderate respiratory distress, equal bilateral expansion, lungs diminished through most pena but strong audible rales in the right base Cardiovascular - Regular Rhythm with S1 and S2 appreciated and no murmur, gallop or rub. GI - abdomen soft without distension or organomegaly - normal bowel sounds - no guard or rebound Musculoskeletal no gross deformity of long bones or joints - no tenderness, swelling or edema Neurologic - Alert and oriented times four - CN II-XII grossly intact - motor sensory and coordination symmetrically normal Psychiatric - appropriate mood and affect with normal thought content Hematologic - No petechiae or purpura - mucosa appropriate color and sclera not pale - normal nail bed color and refill Integument - no rash or evidence of trauma - normal turgor Diagnostics: [] Therapeutics: [] Impression: [] Plan: [] Definitive disposition and diagnosis as appropriate pending reevaluation and review of above. - Related Data Allergies Allergy/AdvReac Type Severity Reaction Status Date / Time No Known Allergies Allergy Verified 12/05/20 16:22 Home Meds: Home Meds Meclizine [Antivert] 25 mg PO TID PRN #15 tab 06/04/20 [Rx] Omeprazole 20 mg PO DAILY #20 capsule. 11/30/20 [Rx] nitrofurantoin macrocrystaL [Nitrofurantoin] 1 dose PO ASDIRECTED 12/05/20 [History] Past Medical History - Past Health History Medical/Surgical History: Denies Medical/Surgical History HEENT History: Reports: None Cardiovascular History: Reports: None Respiratory History: Reports: None Gastrointestinal History: Reports: None Genitourinary History: Reports: None [employer] History: Reports: None, Musculoskeletal History: Reports: None Neurological History: Reports: None Psychiatric History: Reports: None Endocrine/Metabolic History: Reports: None Hematologic History: Reports: None Immunologic History: Reports: None Oncologic (Cancer) History: Reports: None Dermatologic History: Reports: None - Infectious Disease History Infectious Disease History: Reports: Chicken Pox, Measles, Mumps - Past Surgical History Head Surgeries/Procedures: Reports: None Social & Family History - Family History Family Medical History: No Pertinent Family History - Caffeine Use Caffeine Use: Reports: None Caffeine Use Comment: 3 drinks/day ED ROS GENERAL - Review of Systems Review Of Systems: Comprehensive ROS is negative, except as noted in HPI. ED EXAM, GENERAL - Physical Exam Exam: See Below Free Text/Narrative:: My physical exam and in the HPI #1 Interpretation EKG Interpretation Comments: EKG at 4 PM on 12/05/2020 shows a sinus arrhythmia with a heart rate of 91 MI 182 axis -14 Q waves in V1 and V2 and nonspecific ST changes laterally. This is compared to 11/30/2020 and there is no change impression no acute injury Course - Vital Signs Text/Narrative:: X-ray reveals right upper lobe right lower lobe and left lower lobe pneumonia. It is a patchy infiltrate consistent with COVID-19. However the patient meets sepsis criteria and in case this is community acquired pneumonia Rocephin will be initiated within the first hour. 4:35 PM while trying to comply with sepsis protocol I will do the lactate blood cultures and antibiotics. However because we do not want to overload her if it is COVID-19 we will give the 1800 mL over. At 3 hours and in fact if it is COVID-19 will slow that down and put her to maintenance fluids. 4:20 PM I discussed the case with Dr. Fonseca who will ultimately admit the patient unless she deteriorates and needs to be intubated and transferred. [address] Fonseca once more. After being evaluated by her resident and reviewing everything in the chart it appears this patient has bilateral pneumonia from COVID-19. She in fact thought the x-ray looks like there might be interstitial fluid. She ordered Lasix and we discontinued the sepsis fluid bolus in the interest of the patient safety. Due to a high probability of clinically significant, life threatening deterioration, the patient required my highest level of preparedness to intervene emergently and I personally spent this critical care time directly and personally managing the patient. This critical care time included obtaining a history; examining the patient; pulse oximetry; ordering and review of studies; arranging urgent treatment with development of a management plan; evaluation of patient's response to treatment; frequent reassessment; and, discussions with other providers. This critical care time was performed to assess and manage the high probability of imminent, life-threatening deterioration that could result in multi-organ failure. It was exclusive of separately billable procedures and treating other patients and teaching time. 40 minutes Last Recorded V/S: Last Vital Signs Temp 36.1 C 12/05/20 15:50 Pulse 83 12/05/20 16:46 Resp 22 H 12/05/20 16:46 BP 124/66 12/05/20 16:46 Pulse Ox 95 12/05/20 16:46 - Orders/Labs/Meds Orders: Active Orders 24 hr Category Date Time Status Admission Status [Patient Status] [ADT] Stat ADT 12/05/20 17:38 Ordered Blood Pressure Mgt: Sepsis [RC] Q15MX2 Care 12/05/20 16:17 Active Communication Order [RC] STAT Care 12/05/20 16:34 Active EKG Documentation Completion [RC] AM Care 12/05/20 16:04 Active BILIRUBIN DIRECT [CHEM] Stat Lab 12/05/20 17:36 Ordered CULTURE BLOOD [BC] Stat Lab 12/05/20 16:10 Received CULTURE BLOOD [BC] Stat Lab 12/05/20 16:30 Received UA W/DILLON RFLX IF INDICATED [URIN] Stat Lab 12/05/20 16:05 Ordered Furosemide [Lasix] Med 12/05/20 17:40 Once 20 mg IVPUSH ONETIME ONE Sodium Chloride 0.9% [Normal Saline] 1,000 ml Med 12/05/20 16:33 Active IV .Bolus Sodium Chloride 0.9% [Saline Flush] Med 12/05/20 16:04 Active 10 ml FLUSH ASDIRECTED PRN Sodium Chloride 0.9% [Saline Flush] Med 12/05/20 16:16 Active 10 ml FLUSH ASDIRECTED PRN Sodium Chloride 0.9% [Saline Flush] Med 12/05/20 16:04 Active 2.5 ml FLUSH ASDIRECTED PRN Sodium Chloride 0.9% [Saline Flush] Med 12/05/20 16:16 Active 2.5 ml FLUSH ASDIRECTED PRN Blood Culture x2 Reflex Set [OM.PC] Stat Oth 12/05/20 16:06 Ordered Saline Lock Insert [OM.PC] Stat Oth 12/05/20 16:04 Ordered Saline Lock Insert [OM.PC] Stat Oth 12/05/20 16:16 Ordered Medication Orders Sodium Chloride (Normal Saline) 1,000 mls @ 800 mls/hr IV .Bolus ONE Stop: 12/05/20 17:47 Sodium Chloride (Sodium Chloride 0.9% 10 Ml Syringe) 10 ml FLUSH ASDIRECTED PRN PRN Reason: Keep Vein Open Last Admin: 12/05/20 16:41 Dose: 10 ml Documented by: LICHTIM Sodium Chloride (Sodium Chloride 0.9% 2.5 Ml Syringe) 2.5 ml FLUSH ASDIRECTED PRN PRN Reason: Keep Vein Open Last Admin: 12/05/20 16:41 Dose: 2.5 ml Documented by: LICHTIM Sodium Chloride (Sodium Chloride 0.9% 10 Ml Syringe) 10 ml FLUSH ASDIRECTED PRN PRN Reason: Keep Vein Open Sodium Chloride (Sodium Chloride 0.9% 2.5 Ml Syringe) 2.5 ml FLUSH ASDIRECTED PRN PRN Reason: Keep Vein Open Labs: Laboratory Tests 12/05/20 12/05/20 12/05/20 Range/Units 16:10 16:10 16:10 WBC 5.49 (4.0-11.0) K/uL RBC 4.57 (4.30-5.90) M/uL Hgb 13.6 (12.0-16.0) g/dL Hct 40.1 (36.0-46.0) % MCV 87.7 (80.0-98.0) fL MCH 29.8 (27.0-32.0) pg MCHC 33.9 (31.0-37.0) g/dL RDW Std Deviation 42.0 (28.0-62.0) fl RDW Coeff of Tulio 13 (11.0-15.0) % Plt Count 145 L (150-400) K/uL MPV 9.50 (7.40-12.00) fL Neut % (Auto) 77.9 (48.0-80.0) % Lymph % (Auto) 18.6 (16.0-40.0) % Winston % (Auto) 3.5 (0.0-15.0) % Eos % (Auto) 0.0 (0.0-7.0) % Baso % (Auto) 0.0 (0.0-1.5) % Neut # (Auto) 4.3 (1.4-5.7) K/uL Lymph # (Auto) 1.0 (0.6-2.4) K/uL Winston # (Auto) 0.2 (0.0-0.8) K/uL Eos # (Auto) 0.0 (0.0-0.7) K/uL Baso # (Auto) 0.0 (0.0-0.1) K/uL Nucleated RBC % 0.0 /100WBC Nucleated RBCs # 0 K/uL ABG pH (7.35-7.45) ABG pCO2 (35-45) mmHG ABG pO2 (80-105) mmHG ABG HCO3 (22-26) mEq/L ABG Total CO2 (23-27) mmol/L ABG Base Excess (-2.0-3.0) Sodium 132 L (136-145) mmol/L Potassium 3.8 (3.5-5.1) mmol/L Chloride 99 (98-107) mmol/L Carbon Dioxide 22.6 (21.0-32.0) mmol/L BUN 29 H (7.0-18.0) mg/dL Creatinine 2.0 H (0.6-1.0) mg/dL Est Cr Clr Drug Dosing 22.05 mL/min Estimated GFR (MDRD) 24.0 ml/min Glucose 191 H (74-106) mg/dL Lactic Acid (0.4-2.0) mmol/L Calcium 8.0 L (8.5-10.1) mg/dL Total Bilirubin 0.4 (0.2-1.0) mg/dL AST 44 H (15-37) IU/L ALT 22 (14-63) IU/L Alkaline Phosphatase 44 L (46-116) U/L Troponin I < 0.050 (0.000-0.056) ng/mL B-Natriuretic Peptide 135 H (<100) PG/ML Total Protein 6.6 (6.4-8.2) g/dL Albumin 3.1 L (3.4-5.0) g/dL Globulin 3.5 (2.6-4.0) g/dL Albumin/Globulin Ratio 0.9 (0.9-1.6) SARS-CoV-2 RNA (TENISHA) (NEGATIVE) 12/05/20 12/05/20 12/05/20 Range/Units 16:20 16:25 16:28 WBC (4.0-11.0) K/uL RBC (4.30-5.90) M/uL Hgb (12.0-16.0) g/dL Hct (36.0-46.0) % MCV (80.0-98.0) fL MCH (27.0-32.0) pg MCHC (31.0-37.0) g/dL RDW Std Deviation (28.0-62.0) fl RDW Coeff of Tulio (11.0-15.0) % Plt Count (150-400) K/uL MPV (7.40-12.00) fL Neut % (Auto) (48.0-80.0) % Lymph % (Auto) (16.0-40.0) % Winston % (Auto) (0.0-15.0) % Eos % (Auto) (0.0-7.0) % Baso % (Auto) (0.0-1.5) % Neut # (Auto) (1.4-5.7) K/uL Lymph # (Auto) (0.6-2.4) K/uL Winston # (Auto) (0.0-0.8) K/uL Eos # (Auto) (0.0-0.7) K/uL Baso # (Auto) (0.0-0.1) K/uL Nucleated RBC % /100WBC Nucleated RBCs # K/uL ABG pH 7.44 (7.35-7.45) ABG pCO2 27 L (35-45) mmHG ABG pO2 55 L (80-105) mmHG ABG HCO3 19 L (22-26) mEq/L ABG Total CO2 16.7 L (23-27) mmol/L ABG Base Excess -4.3 L (-2.0-3.0) Sodium (136-145) mmol/L Potassium (3.5-5.1) mmol/L Chloride (98-107) mmol/L Carbon Dioxide (21.0-32.0) mmol/L BUN (7.0-18.0) mg/dL Creatinine (0.6-1.0) mg/dL Est Cr Clr Drug Dosing mL/min Estimated GFR (MDRD) ml/min Glucose (74-106) mg/dL Lactic Acid 2.0 (0.4-2.0) mmol/L Calcium (8.5-10.1) mg/dL Total Bilirubin (0.2-1.0) mg/dL AST (15-37) IU/L ALT (14-63) IU/L Alkaline Phosphatase (46-116) U/L Troponin I (0.000-0.056) ng/mL B-Natriuretic Peptide (<100) PG/ML Total Protein (6.4-8.2) g/dL Albumin (3.4-5.0) g/dL Globulin (2.6-4.0) g/dL Albumin/Globulin Ratio (0.9-1.6) SARS-CoV-2 RNA (TENISHA) POSITIVE H (NEGATIVE) Meds: Medications Generic Name Dose Route Start Last Admin Trade Name Freq PRN Reason Stop Dose Admin Sodium Chloride 1,000 mls @ 800 mls/hr 12/05/20 16:33 Normal Saline IV 12/05/20 17:47 .Bolus ONE Sodium Chloride 10 ml 12/05/20 16:04 12/05/20 16:41 Sodium Chloride 0.9% 10 Ml Syringe FLUSH 10 ml ASDIRECTED PRN Administration Keep Vein Open Sodium Chloride 2.5 ml 12/05/20 16:04 12/05/20 16:41 Sodium Chloride 0.9% 2.5 Ml Syringe FLUSH 2.5 ml ASDIRECTED PRN Administration Keep Vein Open Sodium Chloride 10 ml 12/05/20 16:16 Sodium Chloride 0.9% 10 Ml Syringe FLUSH ASDIRECTED PRN Keep Vein Open Sodium Chloride 2.5 ml 12/05/20 16:16 Sodium Chloride 0.9% 2.5 Ml Syringe FLUSH ASDIRECTED PRN Keep Vein Open Discontinued Medications Generic Name Dose Route Start Last Admin Trade Name Glenn PRN Reason Stop Dose Admin Dexamethasone 6 mg 12/05/20 17:37 Dexamethasone 4 Mg Tab PO 12/05/20 17:38 ONETIME ONE Sodium Chloride 1,000 mls @ 1,000 mls/hr 12/05/20 16:16 12/05/20 16:40 Normal Saline IV 12/05/20 17:15 1,000 mls/hr BOLUS ONE Administration Protocol Ceftriaxone Sodium/Dextrose 1 50 mls @ 100 mls/hr 12/05/20 16:18 12/05/20 16:41 gm/ Premix IV 12/05/20 16:47 100 mls/hr ONETIME ONE Administration Remdesivir 200 mg/ Sodium 250 mls @ 250 mls/hr 12/05/20 17:35 Chloride IV 12/05/20 17:36 ONETIME ONE Departure - Departure Time of Disposition: 17:42 Disposition: Admitted As Inpatient 67 Clinical Impression: Bilateral interstitial pneumonia, Respiratory failure, Dehydration - Discharge Information Referrals: Michael Palacios MD [Primary Care Provider] - Forms: ED Department Discharge Sepsis Event Note (ED) - Focused Exam Vital Signs: Vital Signs Temp Pulse Resp BP Pulse Ox 12/05/20 16:46 83 22 H 124/66 95 08/07/21 16:38 85 134/66 90 L 12/05/20 16:28 81 22 H 132/62 94 L 12/05/20 15:58 80 24 H 136/48 L 92 L 12/05/20 15:52 90 L 12/05/20 15:50 36.1 C 88 40 H 136/48 L 73 L - My Orders Last 24 Hours: My Active Orders 12/05/20 16:04 EKG Documentation Completion [RC] AM Sodium Chloride 0.9% [Saline Flush] 10 ml FLUSH ASDIRECTED PRN Sodium Chloride 0.9% [Saline Flush] 2.5 ml FLUSH ASDIRECTED PRN Saline Lock Insert [OM.PC] Stat 12/05/20 16:05 UA W/DILLON RFLX IF INDICATED [URIN] Stat 12/05/20 16:06 Blood Culture x2 Reflex Set [OM.PC] Stat 12/05/20 16:10 CULTURE BLOOD [BC] Stat 12/05/20 16:16 Sodium Chloride 0.9% [Saline Flush] 10 ml FLUSH ASDIRECTED PRN Sodium Chloride 0.9% [Saline Flush] 2.5 ml FLUSH ASDIRECTED PRN Saline Lock Insert [OM.PC] Stat 12/05/20 16:17 Blood Pressure Mgt: Sepsis [RC] Q15MX2 12/05/20 16:30 CULTURE BLOOD [BC] Stat 12/05/20 16:33 Sodium Chloride 0.9% [Normal Saline] 1,000 ml IV .Bolus 12/05/20 16:34 Communication Order [RC] STAT 12/05/20 17:36 BILIRUBIN DIRECT [CHEM] Stat 12/05/20 17:38 Admission Status [Patient Status] [ADT] Stat 12/05/20 17:40 Furosemide [Lasix] 20 mg IVPUSH ONETIME ONE - Assessment/Plan Last 24 Hours: My Active Orders 12/05/20 16:04 EKG Documentation Completion [RC] AM Sodium Chloride 0.9% [Saline Flush] 10 ml FLUSH ASDIRECTED PRN Sodium Chloride 0.9% [Saline Flush] 2.5 ml FLUSH ASDIRECTED PRN Saline Lock Insert [OM.PC] Stat 12/05/20 16:05 UA W/DILLON RFLX IF INDICATED [URIN] Stat 12/05/20 16:06 Blood Culture x2 Reflex Set [OM.PC] Stat 12/05/20 16:10 CULTURE BLOOD [BC] Stat 12/05/20 16:16 Sodium Chloride 0.9% [Saline Flush] 10 ml FLUSH ASDIRECTED PRN Sodium Chloride 0.9% [Saline Flush] 2.5 ml FLUSH ASDIRECTED PRN Saline Lock Insert [OM.PC] Stat 12/05/20 16:17 Blood Pressure Mgt: Sepsis [RC] Q15MX2 12/05/20 16:30 CULTURE BLOOD [BC] Stat 12/05/20 16:33 Sodium Chloride 0.9% [Normal Saline] 1,000 ml IV .Bolus 12/05/20 16:34 Communication Order [RC] STAT 12/05/20 17:36 BILIRUBIN DIRECT [CHEM] Stat 12/05/20 17:38 Admission Status [Patient Status] [ADT] Stat 12/05/20 17:40 Furosemide [Lasix] 20 mg IVPUSH ONETIME ONE
[2020-12-05] MEDS ORDERED: Sodium Chloride 0.9% 1,000 ML IV ONE ×2 (16:16→16:33)
[2020-12-05] MEDS ORDERED: cefTRIAXone 1 GM in Premix Bag 1 BAG IV ONE (16:18)
[2020-12-05 16:57] LABS: BLOOD UREA NITROGEN,BUN 29 mg/dL (7.0-18.0); CARBON DIOXIDE,CO2 22.6 mmol/L (21.0-32.0); CHLORIDE,CL 99 mmol/L (98-107); GLUCOSE RANDOM 191 mg/dL (74-106); POTASSIUM,K 3.8 mmol/L (3.5-5.1); SODIUM,NA 132 mmol/L (136-145)
--- NOTE | 2020-12-05 17:07 | CR ---
INDICATION: Cough. Weakness. TECHNIQUE: AP portable upright chest. COMPARISON: June 04, 2020. FINDINGS: New subtle interstitial prominence at the lung bases. This could reflect subtle edema or less likely a pneumonitis. No pulmonary venous vascular cephalization. Normal heart size. No definite pleural effusions. The included skeleton is unremarkable. IMPRESSION: Subtle but new interstitial prominence at the lung bases may reflect interstitial edema or less likely an interstitial pneumonitis. Clinical correlation recommended Dictated by Nolan Richey MD @ 12/05/2020 5:05:[address] Nolan Richey @ Dec 05 2020 5:05PM
[2020-12-05] MEDS ORDERED: REMDESIVIR 200 MG in Sodium Chloride 0.9% 250 ML IV ONE (17:35)
[2020-12-05] MEDS ORDERED: Dexamethasone 4 MG Tab PO ONE (17:37)
[2020-12-05] MEDS ORDERED: Furosemide 20 MG/2 ML VIAL IVPUSH ONE (17:40)
--- NOTE | 2020-12-05 17:47 | PCM.HP.2 ---
<Regis Mas - Last Filed: 12/05/20 19:26> H&P History of Present Illness - General Date of Service: 12/05/20 Admit Problem/Dx: Admission Diagnosis/Problem Admission Diagnosis/Problem Pneumonia - History of Present Illness Initial Comments - Free Text/Narative: [] 80-year-old female presents the ED with generalized weakness, shortness of breath, hypoxia for the past week but has gotten significantly worse in the past 3 days. Patient being admitted for Covid pneumonia. Patient's daughter who was in the room at the time of the examination states that patient had oxygen saturations at home this morning as low as 80%, which was measured with a finger pulse oximeter. Patient was recently seen in the ED on November 30 for abdominal pain. Chest x-ray at that time was negative. Patient also states that she is seen a medical provider this past week for a UTI and was prescribed nitrofu rantoin which she has been taking consistently. Per patient's daughter, patient has no respiratory medical history including COPD or asthma. Patient was a smoker but quit roughly 10 years ago. Patient also has no cardiac history. Patient denies any recent travel, but states recent contact with another family member few days prior home is not feeling well currently. ED work-up , vital signs respiratory rate 22, O2 saturation 95% on 5 L nasal cannula, 124/66 blood pressure, heart rate 83. Laboratory findings include white blood cell count 5.49, platelet count 145, ABG pH 7.44, PCO2 27, PO2 55, bicarb 19, sodium 132, potassium 3.8, BUN 29, creatinine 2.0, lactic acid 2.0, BNP 135. Patient is Covid positive. Chest x-ray impression, interstitial edema or less likely an interstitial pneu monitis. Normal-sized heart. Patient to be started on Remdesivir, dexamethosone, Oxygen support, IV antibiotics, lovenox therapy - Related Data Allergies/Adverse Reactions: Allergies Allergy/AdvReac Type Severity Reaction Status Date / Time No Known Allergies Allergy Verified 12/05/20 20:33 Home Medications: Home Meds nitrofurantoin macrocrystaL [Nitrofurantoin] 1 dose PO BID 12/05/20 [History] Past Medical History - Past Health History Medical/Surgical History: Denies Medical/Surgical History HEENT History: Reports: None Cardiovascular History: Reports: None Respiratory History: Reports: None Gastrointestinal History: Reports: None Genitourinary History: Reports: None RN NICU History: Reports: Musculoskeletal History: Reports: None Neurological History: Reports: None Psychiatric History: Reports: None Endocrine/Metabolic History: Reports: None Hematologic History: Reports: None Immunologic History: Reports: None Oncologic (Cancer) History: Reports: None Dermatologic History: Reports: None - Infectious Disease History Infectious Disease History: Reports: Chicken Pox, Measles, Mumps - Past Surgical History Head Surgeries/Procedures: Reports: None Social & Family History - Family History Family Medical History: No Pertinent Family History - Tobacco Use Tobacco Use Status *Q: Former Tobacco User Used Tobacco, but Quit: Yes Month/Year Tobacco Last Used: pt unsure - Caffeine Use Caffeine Use: Reports: Coffee Caffeine Use Comment: 3 drinks/day - Recreational Drug Use Recreational Drug Use: No H&P Review of Systems - Review of Systems: Review Of Systems: See Below General: Reports: Weakness, Fatigue. Denies: Fever, Chills Pulmonary: Reports: Shortness of Breath, Cough. Denies: Wheezing Cardiovascular: Denies: Chest Pain, Orthopnea, Edema Gastrointestinal: Denies: Abdominal Pain, Nausea Psychiatric: Denies: Confusion Neurological: Denies: Dizziness, Headache Exam - Exam Exam: See Below - Vital Signs Vital Signs: Last Vital Signs Temp 97.0 F 12/05/20 15:50 Pulse 83 12/05/20 16:46 Resp 22 H 12/05/20 16:46 BP 124/66 12/05/20 16:46 Pulse Ox 95 12/05/20 16:46 Weight: 61.235 kg - Exam General: Alert, Oriented Lungs: Decreased Breath Sounds, Rales Cardiovascular: Regular Rate, Regular Rhythm GI/Abdominal Exam: Soft, Non-Tender Extremities: No Pedal Edema Neuro Extensive - Mental Status: Alert, Oriented x3 Psychiatric: Alert - Patient Data Lab Results Last 24 hrs: Laboratory Results - last 24 hr 12/05/20 12/05/20 12/05/20 Range/Units 16:10 16:10 16:10 WBC 5.49 (4.0-11.0) K/uL RBC 4.57 (4.30-5.90) M/uL Hgb 13.6 (12.0-16.0) g/dL Hct 40.1 (36.0-46.0) % MCV 87.7 (80.0-98.0) fL MCH 29.8 (27.0-32.0) pg MCHC 33.9 (31.0-37.0) g/dL RDW Std Deviation 42.0 (28.0-62.0) fl RDW Coeff of Tulio 13 (11.0-15.0) % Plt Count 145 L (150-400) K/uL MPV 9.50 (7.40-12.00) fL Neut % (Auto) 77.9 (48.0-80.0) % Lymph % (Auto) 18.6 (16.0-40.0) % Kinney % (Auto) 3.5 (0.0-15.0) % Eos % (Auto) 0.0 (0.0-7.0) % Baso % (Auto) 0.0 (0.0-1.5) % Neut # (Auto) 4.3 (1.4-5.7) K/uL Lymph # (Auto) 1.0 (0.6-2.4) K/uL Kinney # (Auto) 0.2 (0.0-0.8) K/uL Eos # (Auto) 0.0 (0.0-0.7) K/uL Baso # (Auto) 0.0 (0.0-0.1) K/uL Nucleated RBC % 0.0 /100WBC Nucleated RBCs # 0 K/uL ABG pH (7.35-7.45) ABG pCO2 (35-45) mmHG ABG pO2 (80-105) mmHG ABG HCO3 (22-26) mEq/L ABG Total CO2 (23-27) mmol/L ABG Base Excess (-2.0-3.0) Sodium 132 L (136-145) mmol/L Potassium 3.8 (3.5-5.1) mmol/L Chloride 99 (98-107) mmol/L Carbon Dioxide 22.6 (21.0-32.0) mmol/L BUN 29 H (7.0-18.0) mg/dL Creatinine 2.0 H (0.6-1.0) mg/dL Est Cr Clr Drug Dosing 22.05 mL/min Estimated GFR (MDRD) 24.0 ml/min Glucose 191 H (74-106) mg/dL Lactic Acid (0.4-2.0) mmol/L Calcium 8.0 L (8.5-10.1) mg/dL Total Bilirubin 0.4 (0.2-1.0) mg/dL AST 44 H (15-37) IU/L ALT 22 (14-63) IU/L Alkaline Phosphatase 44 L (46-116) U/L Troponin I < 0.050 (0.000-0.056) ng/mL B-Natriuretic Peptide 135 H (<100) PG/ML Total Protein 6.6 (6.4-8.2) g/dL Albumin 3.1 L (3.4-5.0) g/dL Globulin 3.5 (2.6-4.0) g/dL Albumin/Globulin Ratio 0.9 (0.9-1.6) SARS-CoV-2 RNA (TENISHA) (NEGATIVE) 12/05/20 12/05/20 12/05/20 Range/Units 16:20 16:25 16:28 WBC (4.0-11.0) K/uL RBC (4.30-5.90) M/uL Hgb (12.0-16.0) g/dL Hct (36.0-46.0) % MCV (80.0-98.0) fL MCH (27.0-32.0) pg MCHC (31.0-37.0) g/dL RDW Std Deviation (28.0-62.0) fl RDW Coeff of Tulio (11.0-15.0) % Plt Count (150-400) K/uL MPV (7.40-12.00) fL Neut % (Auto) (48.0-80.0) % Lymph % (Auto) (16.0-40.0) % Kinney % (Auto) (0.0-15.0) % Eos % (Auto) (0.0-7.0) % Baso % (Auto) (0.0-1.5) % Neut # (Auto) (1.4-5.7) K/uL Lymph # (Auto) (0.6-2.4) K/uL Kinney # (Auto) (0.0-0.8) K/uL Eos # (Auto) (0.0-0.7) K/uL Baso # (Auto) (0.0-0.1) K/uL Nucleated RBC % /100WBC Nucleated RBCs # K/uL ABG pH 7.44 (7.35-7.45) ABG pCO2 27 L (35-45) mmHG ABG pO2 55 L (80-105) mmHG ABG HCO3 19 L (22-26) mEq/L ABG Total CO2 16.7 L (23-27) mmol/L ABG Base Excess -4.3 L (-2.0-3.0) Sodium (136-145) mmol/L Potassium (3.5-5.1) mmol/L Chloride (98-107) mmol/L Carbon Dioxide (21.0-32.0) mmol/L BUN (7.0-18.0) mg/dL Creatinine (0.6-1.0) mg/dL Est Cr Clr Drug Dosing mL/min Estimated GFR (MDRD) ml/min Glucose (74-106) mg/dL Lactic Acid 2.0 (0.4-2.0) mmol/L Calcium (8.5-10.1) mg/dL Total Bilirubin (0.2-1.0) mg/dL AST (15-37) IU/L ALT (14-63) IU/L Alkaline Phosphatase (46-116) U/L Troponin I (0.000-0.056) ng/mL B-Natriuretic Peptide (<100) PG/ML Total Protein (6.4-8.2) g/dL Albumin (3.4-5.0) g/dL Globulin (2.6-4.0) g/dL Albumin/Globulin Ratio (0.9-1.6) SARS-CoV-2 RNA (TENISHA) POSITIVE H (NEGATIVE) Result Diagrams: 12/05/20 16:10 12/05/20 16:10 Sepsis Event Note - Evaluation Sepsis Screening Result: Possible Sepsis Risk - Focused Exam Vital Signs: Vital Signs Temp Pulse Resp BP Pulse Ox 12/05/20 16:46 83 22 H 124/66 95 12/05/20 16:38 85 134/66 90 L 12/05/20 16:28 81 22 H 132/62 94 L 12/05/20 15:58 80 24 H 136/48 L 92 L 12/05/20 15:52 90 L 12/05/20 15:50 97.0 F 88 40 H 136/48 L 73 L - Problem List (1) COVID-19 SNOMED Code(s): 336437309 ICD Code: U07.1 - COVID-19 Status: Acute (2) Dehydration SNOMED Code(s): 73303288 ICD Code: E86.0 - DEHYDRATION Status: Acute (3) Respiratory failure SNOMED Code(s): 422684242 ICD Code: J96.90 - RESPIRATORY FAILURE, UNSP, UNSP W HYPOXIA OR HYPERCAPNIA Status: Acute Problem List Initiated/Reviewed/Updated: Yes Orders Last 24hrs: Active Orders 24 hr Category Date Time Status Admission Status [Patient Status] [ADT] Stat ADT 12/05/20 17:38 Active Blood Pressure Mgt: Sepsis [RC] [id number] Care 12/05/20 16:17 Active Communication Order [RC] STAT Care 12/05/20 16:34 Active EKG Documentation Completion [RC] AM Care 12/05/20 16:04 Active BILIRUBIN DIRECT [CHEM] Stat Lab 12/05/20 16:10 Received CULTURE BLOOD [BC] Stat Lab 12/05/20 16:10 Received CULTURE BLOOD [BC] Stat Lab 12/05/20 16:30 Received UA W/JOSE RFLX IF INDICATED [URIN] Stat Lab 12/05/20 16:05 Ordered Sodium Chloride 0.9% [Saline Flush] Med 12/05/20 16:04 Active 10 ml FLUSH ASDIRECTED PRN Sodium Chloride 0.9% [Saline Flush] Med 12/05/20 16:16 Active 10 ml FLUSH ASDIRECTED PRN Sodium Chloride 0.9% [Saline Flush] Med 12/05/20 16:04 Active 2.5 ml FLUSH ASDIRECTED PRN Sodium Chloride 0.9% [Saline Flush] Med 12/05/20 16:16 Active 2.5 ml FLUSH ASDIRECTED PRN Blood Culture x2 Reflex Set [OM.PC] Stat Oth 12/05/20 16:06 Ordered Saline Lock Insert [OM.PC] Stat Oth 12/05/20 16:04 Ordered Saline Lock Insert [OM.PC] Stat Oth 12/05/20 16:16 Ordered Medication Orders Sodium Chloride (Sodium Chloride 0.9% 10 Ml Syringe) 10 ml FLUSH ASDIRECTED PRN PRN Reason: Keep Vein Open Last Admin: 12/05/20 16:41 Dose: 10 ml Documented by: LICHTIM Sodium Chloride (Sodium Chloride 0.9% 2.5 Ml Syringe) 2.5 ml FLUSH ASDIRECTED PRN PRN Reason: Keep Vein Open Last Admin: 12/05/20 16:41 Dose: 2.5 ml Documented by: LICHTIM Sodium Chloride (Sodium Chloride 0.9% 10 Ml Syringe) 10 ml FLUSH ASDIRECTED PRN PRN Reason: Keep Vein Open Sodium Chloride (Sodium Chloride 0.9% 2.5 Ml Syringe) 2.5 ml FLUSH ASDIRECTED PRN PRN Reason: Keep Vein Open Assessment/Plan Comment:: Covid Pneunomia- Remdesivir (200mg X 1, day 2-5 100mg X 4) Dexamethasone 6 mg p.o. X 10 days Ceftriaxone 1g Q24, Azithromycin 500mg Q24 Prone positioning, Oxygen support-maintain 02 saturations above 92%, incentive spirometry, Duonebs PRN, Will hold IV fluids for now, Lovenox 40mg BID, Tylenol fever/pain, Telemetry <José Luis Fonseca - Last Filed: 12/11/20 12:28> H&P History of Present Illness - General Admit Problem/Dx: Admission Diagnosis/Problem Admission Diagnosis/Problem Pneumonia Exam - Vital Signs Vital Signs: Last Vital Signs Temp 36.7 C 12/09/20 12:00 Pulse 62 12/07/20 07:00 Resp 27 H 12/09/20 15:00 BP 114/67 12/09/20 15:00 Pulse Ox 89 L 12/09/20 15:00 - Patient Data Result Diagrams: 12/09/20 05:10 12/09/20 05:10 Jose Results Last 24 hrs: Microbiology 12/05/20 16:30 Aerobic Blood Culture - Final Blood - Venous - Lab Draw NO GROWTH AFTER 5 DAYS Anaerobic Blood Culture - Final NO GROWTH AFTER 5 DAYS 12/05/20 16:10 Aerobic Blood Culture - Final Blood - Venous NO GROWTH AFTER 5 DAYS Anaerobic Blood Culture - Final NO GROWTH AFTER 5 DAYS Assessment/Plan Comment:: I have seen and evaluated the patient and agree with the residents note unless specified in my note
[2020-12-05] MEDS ORDERED: Albuterol/Ipratropium 3.0-0.5 MG/3 ML Neb Soln NEB PRN (18:19)
[2020-12-05] MEDS ORDERED: Acetaminophen 325 MG Tab PO PRN (18:20)
[2020-12-05] MEDS ORDERED: Polyethylene Glycol 3350 Powder 17 GM Packet PO PRN (18:20)
[2020-12-05] MEDS ORDERED: Azithromycin 500 MG in Sodium Chloride 0.9% 250 ML IV SCH (19:30)
[2020-12-05] MEDS: Albuterol/Ipratropium 4 GM Inhalation Spray INH SCH (20:48)
[2020-12-05] MEDS ORDERED: Enoxaparin 40 MG/0.4 ML Syringe SUBCUT SCH ×2 (21:00)
[2020-12-05] MEDS: Azithromycin 500 MG in Sodium Chloride 0.9% 250 ML IV SCH (21:02)
[2020-12-06] MEDS: Albuterol/Ipratropium 4 GM Inhalation Spray INH SCH ×7 (00:12→23:06)
[2020-12-06 07:09] LABS: POTASSIUM,K 3.6 mmol/L (3.5-5.1)
[2020-12-06] MEDS: Pantoprazole 40 MG in Sodium Chloride 0.9% 10 ML IV SCH (09:07)
--- NOTE | 2020-12-06 11:05 | PCM.PN ---
- General Info Date of Service: 12/06/20 Admission Dx/Problem (Free Text): Admission Diagnosis/Problem Admission Diagnosis/Problem Pneumonia Subjective Update: 80-year-old female with extensive smoking history is admitted for Covid pneumonia. Patient is requiring 5 L nasal cannula. She denies cough or sputum. She denies abdominal pain and is tolerating diet well. She denies chest pain, palpitations, lightheadedness, calf pain or hemoptysis. - Review of Systems General: Reports: Fatigue, Malaise, Chills HEENT: Reports: No Symptoms Pulmonary: Reports: Shortness of Breath Cardiovascular: Reports: No Symptoms Gastrointestinal: Reports: No Symptoms Genitourinary: Reports: No Symptoms Skin: Reports: No Symptoms Neurological: Reports: No Symptoms - Patient Data Vitals - Most Recent: Last Vital Signs Temp 96.9 F 12/06/20 09:12 Pulse 72 12/06/20 09:25 Resp 24 H 12/06/20 09:12 BP 88/51 L 12/06/20 09:12 Pulse Ox 94 L 12/06/20 09:31 Weight - Most Recent: 127 lb 12.8 oz I&O - Last 24 Hours: Intake & Output 12/05/20 12/06/20 12/06/20 22:59 06:59 14:59 Intake Total 500 300 Output Total 350 Balance 500 -50 Lab Results Last 24 Hours: Laboratory Results - last 24 hr 12/05/20 12/05/20 12/05/20 Range/Units 16:10 16:10 16:10 WBC 5.49 (4.0-11.0) K/uL RBC 4.57 (4.30-5.90) M/uL Hgb 13.6 (12.0-16.0) g/dL Hct 40.1 (36.0-46.0) % MCV 87.7 (80.0-98.0) fL MCH 29.8 (27.0-32.0) pg MCHC 33.9 (31.0-37.0) g/dL RDW Std Deviation 42.0 (28.0-62.0) fl RDW Coeff of Tulio 13 (11.0-15.0) % Plt Count 145 L (150-400) K/uL MPV 9.50 (7.40-12.00) fL Neut % (Auto) 77.9 (48.0-80.0) % Lymph % (Auto) 18.6 (16.0-40.0) % Garfield % (Auto) 3.5 (0.0-15.0) % Eos % (Auto) 0.0 (0.0-7.0) % Baso % (Auto) 0.0 (0.0-1.5) % Neut # (Auto) 4.3 (1.4-5.7) K/uL Lymph # (Auto) 1.0 (0.6-2.4) K/uL Garfield # (Auto) 0.2 (0.0-0.8) K/uL Eos # (Auto) 0.0 (0.0-0.7) K/uL Baso # (Auto) 0.0 (0.0-0.1) K/uL Nucleated RBC % 0.0 /100WBC Nucleated RBCs # 0 K/uL ABG pH (7.35-7.45) ABG pCO2 (35-45) mmHG ABG pO2 (80-105) mmHG ABG HCO3 (22-26) mEq/L ABG Total CO2 (23-27) mmol/L ABG Base Excess (-2.0-3.0) Sodium 132 L (136-145) mmol/L Potassium 3.8 (3.5-5.1) mmol/L Chloride 99 (98-107) mmol/L Carbon Dioxide 22.6 (21.0-32.0) mmol/L BUN 29 H (7.0-18.0) mg/dL Creatinine 2.0 H (0.6-1.0) mg/dL Est Cr Clr Drug Dosing 22.05 mL/min Estimated GFR (MDRD) 24.0 ml/min Glucose 191 H (74-106) mg/dL Lactic Acid (0.4-2.0) mmol/L Calcium 8.0 L (8.5-10.1) mg/dL Magnesium (1.8-2.4) mg/dL Total Bilirubin 0.4 (0.2-1.0) mg/dL Direct Bilirubin (0.0-0.5) mg/dL AST 44 H (15-37) IU/L ALT 22 (14-63) IU/L Alkaline Phosphatase 44 L (46-116) U/L Troponin I < 0.050 (0.000-0.056) ng/mL B-Natriuretic Peptide 135 H (<100) PG/ML Total Protein 6.6 (6.4-8.2) g/dL Albumin 3.1 L (3.4-5.0) g/dL Globulin 3.5 (2.6-4.0) g/dL Albumin/Globulin Ratio 0.9 (0.9-1.6) Vitamin D 25-Hydroxy (30.0-100.0) ng/mL Urine Color Urine Appearance Urine pH (5.0-8.0) Ur Specific L[place]ner (1.001-1.035) Urine Protein (NEGATIVE) mg/dL Urine Glucose (UA) (NEGATIVE) mg/dL Urine Ketones (NEGATIVE) mg/dL Urine Occult Blood (NEGATIVE) Urine Nitrite (NEGATIVE) Urine Bilirubin (NEGATIVE) Urine Urobilinogen (<2.0) EU/dL Ur Leukocyte Esterase (NEGATIVE) Urine RBC (0-2/HPF) Urine WBC (0-5/HPF) Ur Epithelial Cells (NONE-FEW) Urine Bacteria (NEGATIVE) SARS-CoV-2 RNA (TENISHA) (NEGATIVE) 12/05/20 12/05/20 12/05/20 Range/Units 16:10 16:10 16:20 WBC (4.0-11.0) K/uL RBC (4.30-5.90) M/uL Hgb (12.0-16.0) g/dL Hct (36.0-46.0) % MCV (80.0-98.0) fL MCH (27.0-32.0) pg MCHC (31.0-37.0) g/dL RDW Std Deviation (28.0-62.0) fl RDW Coeff of Tulio (11.0-15.0) % Plt Count (150-400) K/uL MPV (7.40-12.00) fL Neut % (Auto) (48.0-80.0) % Lymph % (Auto) (16.0-40.0) % Garfield % (Auto) (0.0-15.0) % Eos % (Auto) (0.0-7.0) % Baso % (Auto) (0.0-1.5) % Neut # (Auto) (1.4-5.7) K/uL Lymph # (Auto) (0.6-2.4) K/uL Garfield # (Auto) (0.0-0.8) K/uL Eos # (Auto) (0.0-0.7) K/uL Baso # (Auto) (0.0-0.1) K/uL Nucleated RBC % /100WBC Nucleated RBCs # K/uL ABG pH 7.44 (7.35-7.45) ABG pCO2 27 L (35-45) mmHG ABG pO2 55 L (80-105) mmHG ABG HCO3 19 L (22-26) mEq/L ABG Total CO2 16.7 L (23-27) mmol/L ABG Base Excess -4.3 L (-2.0-3.0) Sodium (136-145) mmol/L Potassium (3.5-5.1) mmol/L Chloride (98-107) mmol/L Carbon Dioxide (21.0-32.0) mmol/L BUN (7.0-18.0) mg/dL Creatinine (0.6-1.0) mg/dL Est Cr Clr Drug Dosing mL/min Estimated GFR (MDRD) ml/min Glucose (74-106) mg/dL Lactic Acid (0.4-2.0) mmol/L Calcium (8.5-10.1) mg/dL Magnesium 2.1 (1.8-2.4) mg/dL Total Bilirubin (0.2-1.0) mg/dL Direct Bilirubin 0.10 (0.0-0.5) mg/dL AST (15-37) IU/L ALT (14-63) IU/L Alkaline Phosphatase (46-116) U/L Troponin I (0.000-0.056) ng/mL B-Natriuretic Peptide (<100) PG/ML Total Protein (6.4-8.2) g/dL Albumin (3.4-5.0) g/dL Globulin (2.6-4.0) g/dL Albumin/Globulin Ratio (0.9-1.6) Vitamin D 25-Hydroxy 14.2 L (30.0-100.0) ng/mL Urine Color Urine Appearance Urine pH (5.0-8.0) Ur Specific [place] (1.001-1.035) Urine Protein (NEGATIVE) mg/dL Urine Glucose (UA) (NEGATIVE) mg/dL Urine Ketones (NEGATIVE) mg/dL Urine Occult Blood (NEGATIVE) Urine Nitrite (NEGATIVE) Urine Bilirubin (NEGATIVE) Urine Urobilinogen (<2.0) EU/dL Ur Leukocyte Esterase (NEGATIVE) Urine RBC (0-2/HPF) Urine WBC (0-5/HPF) Ur Epithelial Cells (NONE-FEW) Urine Bacteria (NEGATIVE) SARS-CoV-2 RNA (TENISHA) (NEGATIVE) 12/05/20 12/05/20 12/05/20 Range/Units 16:25 16:28 21:20 WBC (4.0-11.0) K/uL RBC (4.30-5.90) M/uL Hgb (12.0-16.0) g/dL Hct (36.0-46.0) % MCV (80.0-98.0) fL MCH (27.0-32.0) pg MCHC (31.0-37.0) g/dL RDW Std Deviation (28.0-62.0) fl RDW Coeff of Tulio (11.0-15.0) % Plt Count (150-400) K/uL MPV (7.40-12.00) fL Neut % (Auto) (48.0-80.0) % Lymph % (Auto) (16.0-40.0) % Garfield % (Auto) (0.0-15.0) % Eos % (Auto) (0.0-7.0) % Baso % (Auto) (0.0-1.5) % Neut # (Auto) (1.4-5.7) K/uL Lymph # (Auto) (0.6-2.4) K/uL Garfield # (Auto) (0.0-0.8) K/uL Eos # (Auto) (0.0-0.7) K/uL Baso # (Auto) (0.0-0.1) K/uL Nucleated RBC % /100WBC Nucleated RBCs # K/uL ABG pH (7.35-7.45) ABG pCO2 (35-45) mmHG ABG pO2 (80-105) mmHG ABG HCO3 (22-26) mEq/L ABG Total CO2 (23-27) mmol/L ABG Base Excess (-2.0-3.0) Sodium (136-145) mmol/L Potassium (3.5-5.1) mmol/L Chloride (98-107) mmol/L Carbon Dioxide (21.0-32.0) mmol/L BUN (7.0-18.0) mg/dL Creatinine (0.6-1.0) mg/dL Est Cr Clr Drug Dosing mL/min Estimated GFR (MDRD) ml/min Glucose (74-106) mg/dL Lactic Acid 2.0 (0.4-2.0) mmol/L Calcium (8.5-10.1) mg/dL Magnesium (1.8-2.4) mg/dL Total Bilirubin (0.2-1.0) mg/dL Direct Bilirubin (0.0-0.5) mg/dL AST (15-37) IU/L ALT (14-63) IU/L Alkaline Phosphatase (46-116) U/L Troponin I (0.000-0.056) ng/mL B-Natriuretic Peptide (<100) PG/ML Total Protein (6.4-8.2) g/dL Albumin (3.4-5.0) g/dL Globulin (2.6-4.0) g/dL Albumin/Globulin Ratio (0.9-1.6) Vitamin D 25-Hydroxy (30.0-100.0) ng/mL Urine Color YELLOW Urine Appearance SLT CLOUDY Urine pH 6.0 (5.0-8.0) Ur Specific [place]ner 1.025 (1.001-1.035) Urine Protein 30 H (NEGATIVE) mg/dL Urine Glucose (UA) NEGATIVE (NEGATIVE) mg/dL Urine Ketones NEGATIVE (NEGATIVE) mg/dL Urine Occult Blood SMALL H (NEGATIVE) Urine Nitrite NEGATIVE (NEGATIVE) Urine Bilirubin NEGATIVE (NEGATIVE) Urine Urobilinogen 0.2 (<2.0) EU/dL Ur Leukocyte Esterase TRACE H (NEGATIVE) Urine RBC 0-2 (0-2/HPF) Urine WBC 1-3 (0-5/HPF) Ur Epithelial Cells RARE (NONE-FEW) Urine Bacteria FEW (NEGATIVE) SARS-CoV-2 RNA (TENISHA) POSITIVE H (NEGATIVE) 12/06/20 12/06/20 Range/Units 06:30 06:30 WBC 3.99 L (4.0-11.0) K/uL RBC 4.16 L (4.30-5.90) M/uL Hgb 12.4 (12.0-16.0) g/dL Hct 36.4 (36.0-46.0) % MCV 87.5 (80.0-98.0) fL MCH 29.8 (27.0-32.0) pg MCHC 34.1 (31.0-37.0) g/dL RDW Std Deviation 42.4 (28.0-62.0) fl RDW Coeff of Tulio 13 (11.0-15.0) % Plt Count 122 L (150-400) K/uL MPV 9.20 (7.40-12.00) fL Neut % (Auto) 82.7 H (48.0-80.0) % Lymph % (Auto) 13.5 L (16.0-40.0) % Garfield % (Auto) 3.8 (0.0-15.0) % Eos % (Auto) 0.0 (0.0-7.0) % Baso % (Auto) 0.0 (0.0-1.5) % Neut # (Auto) 3.3 (1.4-5.7) K/uL Lymph # (Auto) 0.5 L (0.6-2.4) K/uL Garfield # (Auto) 0.2 (0.0-0.8) K/uL Eos # (Auto) 0.0 (0.0-0.7) K/uL Baso # (Auto) 0.0 (0.0-0.1) K/uL Nucleated RBC % 0.0 /100WBC Nucleated RBCs # 0 K/uL ABG pH (7.35-7.45) ABG pCO2 (35-45) mmHG ABG pO2 (80-105) mmHG ABG HCO3 (22-26) mEq/L ABG Total CO2 (23-27) mmol/L ABG Base Excess (-2.0-3.0) Sodium 136 (136-145) mmol/L Potassium 3.6 (3.5-5.1) mmol/L Chloride 103 (98-107) mmol/L Carbon Dioxide 18.0 L (21.0-32.0) mmol/L BUN 33 H (7.0-18.0) mg/dL Creatinine 2.0 H (0.6-1.0) mg/dL Est Cr Clr Drug Dosing 20.87 mL/min Estimated GFR (MDRD) 24.0 ml/min Glucose 181 H (74-106) mg/dL Lactic Acid (0.4-2.0) mmol/L Calcium 7.4 L (8.5-10.1) mg/dL Magnesium (1.8-2.4) mg/dL Total Bilirubin 0.2 (0.2-1.0) mg/dL Direct Bilirubin (0.0-0.5) mg/dL AST 38 H (15-37) IU/L ALT 17 (14-63) IU/L Alkaline Phosphatase 37 L (46-116) U/L Troponin I (0.000-0.056) ng/mL B-Natriuretic Peptide (<100) PG/ML Total Protein 5.8 L (6.4-8.2) g/dL Albumin 2.5 L (3.4-5.0) g/dL Globulin 3.3 (2.6-4.0) g/dL Albumin/Globulin Ratio 0.8 L (0.9-1.6) Vitamin D 25-Hydroxy (30.0-100.0) ng/mL Urine Color Urine Appearance Urine pH (5.0-8.0) Ur Specific Lentner (1.001-1.035) Urine Protein (NEGATIVE) mg/dL Urine Glucose (UA) (NEGATIVE) mg/dL Urine Ketones (NEGATIVE) mg/dL Urine Occult Blood (NEGATIVE) Urine Nitrite (NEGATIVE) Urine Bilirubin (NEGATIVE) Urine Urobilinogen (<2.0) EU/dL Ur Leukocyte Esterase (NEGATIVE) Urine RBC (0-2/HPF) Urine WBC (0-5/HPF) Ur Epithelial Cells (NONE-FEW) Urine Bacteria (NEGATIVE) SARS-CoV-2 RNA (TENISHA) (NEGATIVE) Med Orders - Current: Current Medications Acetaminophen (Acetaminophen 325 Mg Tab) 650 mg PO Q4H PRN PRN Reason: Pain (Mild 1-3)/fever Albuterol/Ipratropium (Albuterol/Ipratropium 3.0-0.5 Mg/3 Ml Neb Soln) 3 ml NEB Q4HRRT PRN PRN Reason: Shortness of Breath Albuterol/Ipratropium (Albuterol/Ipratropium 4 Gm Inhalation [place]) 0 gm INH Q4H [facility] Last Admin: 12/06/20 09:11 Dose: 1 puff Documented by: Dexamethasone (Dexamethasone 4 Mg Tab) 6 mg PO DAILY [facility] Enoxaparin Sodium (Enoxaparin 30 Mg/0.3 Ml Syringe) 30 mg SUBCUT Q24H [facility] Remdesivir 100 mg/ Sodium (Chloride) 100 mls @ 100 mls/hr IV Q24H [facility] Stop: 12/09/20 19:59 Pantoprazole Sodium 40 mg/ (Sodium Chloride) 10 mls @ 300 mls/hr IV Q24H [facility] Last Admin: 12/06/20 09:07 Dose: 300 mls/hr Documented by: Ceftriaxone Sodium/Dextrose 1 (gm/ Premix) 50 mls @ 100 mls/hr IV Q24H [facility] Azithromycin 500 mg/ Sodium (Chloride) 250 mls @ 250 mls/hr IV Q24H [facility] Last Admin: 12/05/20 21:02 Dose: 250 mls/hr Documented by: Polyethylene Glycol (Polyethylene Glycol 3350 Powder 17 Gm Packet) 17 gm PO RAFFAELE LY PRN PRN Reason: Constipation Sodium Chloride (Sodium Chloride 0.9% 10 Ml Syringe) 10 ml FLUSH ASDIRECTED PRN PRN Reason: Keep Vein Open Last Admin: 12/05/20 16:41 Dose: 10 ml Documented by: Sodium Chloride (Sodium Chloride 0.9% 2.5 Ml Syringe) 2.5 ml FLUSH ASDIRECTED PRN PRN Reason: Keep Vein Open Last Admin: 12/05/20 16:41 Dose: 2.5 ml Documented by: Sodium Chloride (Sodium Chloride 0.9% 10 Ml Syringe) 10 ml FLUSH ASDIRECTED PRN PRN Reason: Keep Vein Open Sodium Chloride (Sodium Chloride 0.9% 2.5 Ml Syringe) 2.5 ml FLUSH ASDIRECTED PRN PRN Reason: Keep Vein Open Discontinued Medications Dexamethasone (Dexamethasone 4 Mg Tab) 6 mg PO ONETIME ONE Stop: 12/05/20 17:38 Last Admin: 12/05/20 19:27 Dose: 6 mg Documented by: Enoxaparin Sodium (Enoxaparin 40 Mg/0.4 Ml Syringe) 40 mg SUBCUT Q12HR [facility] Last Admin: 12/06/20 01:55 Dose: Not Given Documented by: Enoxaparin Sodium (Enoxaparin 40 Mg/0.4 Ml Syringe) 40 mg SUBCUT BEDTIME DIANA Stop: 12/05/20 21:01 Last Admin: 12/05/20 20:51 Dose: 40 mg Documented by: Furosemide (Furosemide 20 Mg/2 Ml Vial) 20 mg IVPUSH ONETIME ONE Stop: 12/05/20 17:41 Last Admin: 12/05/20 19:26 Dose: 20 mg Documented by: Sodium Chloride (Normal Saline) 1,000 mls @ 1,000 mls/hr IV BOLUS ONE; Protocol Stop: 12/05/20 17:15 Last Admin: 12/05/20 16:40 Dose: 1,000 mls/hr Documented by: Ceftriaxone Sodium/Dextrose 1 (gm/ Premix) 50 mls @ 100 mls/hr IV ONETIME ONE Stop: 12/05/20 16:47 Last Admin: 12/05/20 16:41 Dose: 100 mls/hr Documented by: Sodium Chloride (Normal Saline) 1,000 mls @ 800 mls/hr IV .Bolus ONE Stop: 12/05/20 17:47 Last Admin: 12/05/20 18:07 Dose: Not Given Documented by: Remdesivir 200 mg/ Sodium (Chloride) 250 mls @ 250 mls/hr IV ONETIME ONE Stop: 12/05/20 17:36 Last Admin: 12/05/20 19:24 Dose: 250 mls/hr Documented by: - Exam Quality Assessment: Supplemental Oxygen General: Alert, Oriented, Cooperative HEENT: EOMI Neck: Supple, No JVD Lungs: Decreased Breath Sounds, Rales Cardiovascular: Regular Rate, Regular Rhythm GI/Abdominal Exam: Normal Bowel Sounds, Soft, Non-Tender Extremities: Normal Inspection Neurological: No New Focal Deficit - Patient Data Lab Results Last 24 hrs: Laboratory Results - last 24 hr 12/05/20 12/05/20 12/05/20 Range/Units 16:10 16:10 16:10 WBC 5.49 (4.0-11.0) K/uL RBC 4.57 (4.30-5.90) M/uL Hgb 13.6 (12.0-16.0) g/dL Hct 40.1 (36.0-46.0) % MCV 87.7 (80.0-98.0) fL MCH 29.8 (27.0-32.0) pg MCHC 33.9 (31.0-37.0) g/dL RDW Std Deviation 42.0 (28.0-62.0) fl RDW Coeff of Tulio 13 (11.0-15.0) % Plt Count 145 L (150-400) K/uL MPV 9.50 (7.40-12.00) fL Neut % (Auto) 77.9 (48.0-80.0) % Lymph % (Auto) 18.6 (16.0-40.0) % Garfield % (Auto) 3.5 (0.0-15.0) % Eos % (Auto) 0.0 (0.0-7.0) % Baso % (Auto) 0.0 (0.0-1.5) % Neut # (Auto) 4.3 (1.4-5.7) K/uL Lymph # (Auto) 1.0 (0.6-2.4) K/uL Garfield # (Auto) 0.2 (0.0-0.8) K/uL Eos # (Auto) 0.0 (0.0-0.7) K/uL Baso # (Auto) 0.0 (0.0-0.1) K/uL Nucleated RBC % 0.0 /100WBC Nucleated RBCs # 0 K/uL ABG pH (7.35-7.45) ABG pCO2 (35-45) mmHG ABG pO2 (80-105) mmHG ABG HCO3 (22-26) mEq/L ABG Total CO2 (23-27) mmol/L ABG Base Excess (-2.0-3.0) Sodium 132 L (136-145) mmol/L Potassium 3.8 (3.5-5.1) mmol/L Chloride 99 (98-107) mmol/L Carbon Dioxide 22.6 (21.0-32.0) mmol/L BUN 29 H (7.0-18.0) mg/dL Creatinine 2.0 H (0.6-1.0) mg/dL Est Cr Clr Drug Dosing 22.05 mL/min Estimated GFR (MDRD) 24.0 ml/min Glucose 191 H (74-106) mg/dL Lactic Acid (0.4-2.0) mmol/L Calcium 8.0 L (8.5-10.1) mg/dL Magnesium (1.8-2.4) mg/dL Total Bilirubin 0.4 (0.2-1.0) mg/dL Direct Bilirubin (0.0-0.5) mg/dL AST 44 H (15-37) IU/L ALT 22 (14-63) IU/L Alkaline Phosphatase 44 L (46-116) U/L Troponin I < 0.050 (0.000-0.056) ng/mL B-Natriuretic Peptide 135 H (<100) PG/ML Total Protein 6.6 (6.4-8.2) g/dL Albumin 3.1 L (3.4-5.0) g/dL Globulin 3.5 (2.6-4.0) g/dL Albumin/Globulin Ratio 0.9 (0.9-1.6) Vitamin D 25-Hydroxy (30.0-100.0) ng/mL Urine Color Urine Appearance Urine pH (5.0-8.0) Ur Specific [place] (1.001-1.035) Urine Protein (NEGATIVE) mg/dL Urine Glucose (UA) (NEGATIVE) mg/dL Urine Ketones (NEGATIVE) mg/dL Urine Occult Blood (NEGATIVE) Urine Nitrite (NEGATIVE) Urine Bilirubin (NEGATIVE) Urine Urobilinogen (<2.0) EU/dL Ur Leukocyte Esterase (NEGATIVE) Urine RBC (0-2/HPF) Urine WBC (0-5/HPF) Ur Epithelial Cells (NONE-FEW) Urine Bacteria (NEGATIVE) SARS-CoV-2 RNA (TENISHA) (NEGATIVE) 12/05/20 12/05/20 12/05/20 Range/Units 16:10 16:10 16:20 WBC (4.0-11.0) K/uL RBC (4.30-5.90) M/uL Hgb (12.0-16.0) g/dL Hct (36.0-46.0) % MCV (80.0-98.0) fL MCH (27.0-32.0) pg MCHC (31.0-37.0) g/dL RDW Std Deviation (28.0-62.0) fl RDW Coeff of Tulio (11.0-15.0) % Plt Count (150-400) K/uL MPV (7.40-12.00) fL Neut % (Auto) (48.0-80.0) % Lymph % (Auto) (16.0-40.0) % Garfield % (Auto) (0.0-15.0) % Eos % (Auto) (0.0-7.0) % Baso % (Auto) (0.0-1.5) % Neut # (Auto) (1.4-5.7) K/uL Lymph # (Auto) (0.6-2.4) K/uL [place]field # (Auto) (0.0-0.8) K/uL Eos # (Auto) (0.0-0.7) K/uL Baso # (Auto) (0.0-0.1) K/uL Nucleated RBC % /100WBC Nucleated RBCs # K/uL ABG pH 7.44 (7.35-7.45) ABG pCO2 27 L (35-45) mmHG ABG pO2 55 L (80-105) mmHG ABG HCO3 19 L (22-26) mEq/L ABG Total CO2 16.7 L (23-27) mmol/L ABG Base Excess -4.3 L (-2.0-3.0) Sodium (136-145) mmol/L Potassium (3.5-5.1) mmol/L Chloride (98-107) mmol/L Carbon Dioxide (21.0-32.0) mmol/L BUN (7.0-18.0) mg/dL Creatinine (0.6-1.0) mg/dL Est Cr Clr Drug Dosing mL/min Estimated GFR (MDRD) ml/min Glucose (74-106) mg/dL Lactic Acid (0.4-2.0) mmol/L Calcium (8.5-10.1) mg/dL Magnesium 2.1 (1.8-2.4) mg/dL Total Bilirubin (0.2-1.0) mg/dL Direct Bilirubin 0.10 (0.0-0.5) mg/dL AST (15-37) IU/L ALT (14-63) IU/L Alkaline Phosphatase (46-116) U/L Troponin I (0.000-0.056) ng/mL B-Natriuretic Peptide (<100) PG/ML Total Protein (6.4-8.2) g/dL Albumin (3.4-5.0) g/dL Globulin (2.6-4.0) g/dL Albumin/Globulin Ratio (0.9-1.6) Vitamin D 25-Hydroxy 14.2 L (30.0-100.0) ng/mL Urine Color Urine Appearance Urine pH (5.0-8.0) Ur Specific [place] (1.001-1.035) Urine Protein (NEGATIVE) mg/dL Urine Glucose (UA) (NEGATIVE) mg/dL Urine Ketones (NEGATIVE) mg/dL Urine Occult Blood (NEGATIVE) Urine Nitrite (NEGATIVE) Urine Bilirubin (NEGATIVE) Urine Urobilinogen (<2.0) EU/dL Ur Leukocyte Esterase (NEGATIVE) Urine RBC (0-2/HPF) Urine WBC (0-5/HPF) Ur Epithelial Cells (NONE-FEW) Urine Bacteria (NEGATIVE) SARS-CoV-2 RNA (TENISHA) (NEGATIVE) 12/05/20 12/05/20 12/05/20 Range/Units 16:25 16:28 21:20 WBC (4.0-11.0) K/uL RBC (4.30-5.90) M/uL Hgb (12.0-16.0) g/dL Hct (36.0-46.0) % MCV (80.0-98.0) fL MCH (27.0-32.0) pg MCHC (31.0-37.0) g/dL RDW Std Deviation (28.0-62.0) fl RDW Coeff of Tulio (11.0-15.0) % Plt Count (150-400) K/uL MPV (7.40-12.00) fL Neut % (Auto) (48.0-80.0) % Lymph % (Auto) (16.0-40.0) % [place]field % (Auto) (0.0-15.0) % Eos % (Auto) (0.0-7.0) % Baso % (Auto) (0.0-1.5) % Neut # (Auto) (1.4-5.7) K/uL Lymph # (Auto) (0.6-2.4) K/uL Garfield # (Auto) (0.0-0.8) K/uL Eos # (Auto) (0.0-0.7) K/uL Baso # (Auto) (0.0-0.1) K/uL Nucleated RBC % /100WBC Nucleated RBCs # K/uL ABG pH (7.35-7.45) ABG pCO2 (35-45) mmHG ABG pO2 (80-105) mmHG ABG HCO3 (22-26) mEq/L ABG Total CO2 (23-27) mmol/L ABG Base Excess (-2.0-3.0) Sodium (136-145) mmol/L Potassium (3.5-5.1) mmol/L Chloride (98-107) mmol/L Carbon Dioxide (21.0-32.0) mmol/L BUN (7.0-18.0) mg/dL Creatinine (0.6-1.0) mg/dL Est Cr Clr Drug Dosing mL/min Estimated GFR (MDRD) ml/min Glucose (74-106) mg/dL Lactic Acid 2.0 (0.4-2.0) mmol/L Calcium (8.5-10.1) mg/dL Magnesium (1.8-2.4) mg/dL Total Bilirubin (0.2-1.0) mg/dL Direct Bilirubin (0.0-0.5) mg/dL AST (15-37) IU/L ALT (14-63) IU/L Alkaline Phosphatase (46-116) U/L Troponin I (0.000-0.056) ng/mL B-Natriuretic Peptide (<100) PG/ML Total Protein (6.4-8.2) g/dL Albumin (3.4-5.0) g/dL Globulin (2.6-4.0) g/dL Albumin/Globulin Ratio (0.9-1.6) Vitamin D 25-Hydroxy (30.0-100.0) ng/mL Urine Color YELLOW Urine Appearance SLT CLOUDY Urine pH 6.0 (5.0-8.0) Ur Specific Lentner 1.025 (1.001-1.035) Urine Protein 30 H (NEGATIVE) mg/dL Urine Glucose (UA) NEGATIVE (NEGATIVE) mg/dL Urine Ketones NEGATIVE (NEGATIVE) mg/dL Urine Occult Blood SMALL H (NEGATIVE) Urine Nitrite NEGATIVE (NEGATIVE) Urine Bilirubin NEGATIVE (NEGATIVE) Urine Urobilinogen 0.2 (<2.0) EU/dL Ur Leukocyte Esterase TRACE H (NEGATIVE) Urine RBC 0-2 (0-2/HPF) Urine WBC 1-3 (0-5/HPF) Ur Epithelial Cells RARE (NONE-FEW) Urine Bacteria FEW (NEGATIVE) SARS-CoV-2 RNA (TENISHA) POSITIVE H (NEGATIVE) 12/06/20 12/06/20 Range/Units 06:30 06:30 WBC 3.99 L (4.0-11.0) K/uL RBC 4.16 L (4.30-5.90) M/uL Hgb 12.4 (12.0-16.0) g/dL Hct 36.4 (36.0-46.0) % MCV 87.5 (80.0-98.0) fL MCH 29.8 (27.0-32.0) pg MCHC 34.1 (31.0-37.0) g/dL RDW Std Deviation 42.4 (28.0-62.0) fl RDW Coeff of Tulio 13 (11.0-15.0) % Plt Count 122 L (150-400) K/uL MPV 9.20 (7.40-12.00) fL Neut % (Auto) 82.7 H (48.0-80.0) % Lymph % (Auto) 13.5 L (16.0-40.0) % Garfield % (Auto) 3.8 (0.0-15.0) % Eos % (Auto) 0.0 (0.0-7.0) % Baso % (Auto) 0.0 (0.0-1.5) % Neut # (Auto) 3.3 (1.4-5.7) K/uL Lymph # (Auto) 0.5 L (0.6-2.4) K/uL Garfield # (Auto) 0.2 (0.0-0.8) K/uL Eos # (Auto) 0.0 (0.0-0.7) K/uL Baso # (Auto) 0.0 (0.0-0.1) K/uL Nucleated RBC % 0.0 /100WBC Nucleated RBCs # 0 K/uL ABG pH (7.35-7.45) ABG pCO2 (35-45) mmHG ABG pO2 (80-105) mmHG ABG HCO3 (22-26) mEq/L ABG Total CO2 (23-27) mmol/L ABG Base Excess (-2.0-3.0) Sodium 136 (136-145) mmol/L Potassium 3.6 (3.5-5.1) mmol/L Chloride 103 (98-107) mmol/L Carbon Dioxide 18.0 L (21.0-32.0) mmol/L BUN 33 H (7.0-18.0) mg/dL Creatinine 2.0 H (0.6-1.0) mg/dL Est Cr Clr Drug Dosing 20.87 mL/min Estimated GFR (MDRD) 24.0 ml/min Glucose 181 H (74-106) mg/dL Lactic Acid (0.4-2.0) mmol/L Calcium 7.4 L (8.5-10.1) mg/dL Magnesium (1.8-2.4) mg/dL Total Bilirubin 0.2 (0.2-1.0) mg/dL Direct Bilirubin (0.0-0.5) mg/dL AST 38 H (15-37) IU/L ALT 17 (14-63) IU/L Alkaline Phosphatase 37 L (46-116) U/L Troponin I (0.000-0.056) ng/mL B-Natriuretic Peptide (<100) PG/ML Total Protein 5.8 L (6.4-8.2) g/dL Albumin 2.5 L (3.4-5.0) g/dL Globulin 3.3 (2.6-4.0) g/dL Albumin/Globulin Ratio 0.8 L (0.9-1.6) Vitamin D 25-Hydroxy (30.0-100.0) ng/mL Urine Color Urine Appearance Urine pH (5.0-8.0) Ur Specific Lentner (1.001-1.035) Urine Protein (NEGATIVE) mg/dL Urine Glucose (UA) (NEGATIVE) mg/dL Urine Ketones (NEGATIVE) mg/dL Urine Occult Blood (NEGATIVE) Urine Nitrite (NEGATIVE) Urine Bilirubin (NEGATIVE) Urine Urobilinogen (<2.0) EU/dL Ur Leukocyte Esterase (NEGATIVE) Urine RBC (0-2/HPF) Urine WBC (0-5/HPF) Ur Epithelial Cells (NONE-FEW) Urine Bacteria (NEGATIVE) SARS-CoV-2 RNA (TENISHA) (NEGATIVE) Result Diagrams: 12/06/20 06:30 12/06/20 06:30 Sepsis Event Note - Evaluation Sepsis Screening Result: No Definite Risk - Focused Exam Vital Signs: Vital Signs Temp Pulse Resp BP Pulse Ox Pulse Ox 12/06/20 09:31 94 L 12/06/20 09:25 72 12/06/20 09:12 96.9 F 66 24 H 88/51 L 93 L 12/06/20 06:00 92 L 12/06/20 03:42 97.7 F 74 22 H 97/53 L 92 L 12/06/20 01:05 71 97/53 L 12/05/20 23:59 98.9 F 75 24 H 96/55 L 94 L - Problem List & Annotations (1) Pneumonia due to COVID-19 virus SNOMED Code(s): 969267438023152498 Code(s): U07.1 - COVID-19; J12.82 - PNEUMONIA DUE TO CORONAVIRUS DISEASE 2018 Status: Acute Current Visit: Yes (2) COVID-19 SNOMED Code(s): 635887875 Code(s): U07.1 - COVID-19 Status: Acute Current Visit: Yes - Problem List Review Problem List Initiated/Reviewed/Updated: Yes - Plan Plan:: We will continue the patient on the Covid regimen and watch her oxygen saturation closely today. Patient is being treated with the following: Remdesivir (200mg X 1, day 2-5 100mg X 4) Dexamethasone 6 mg p.o. X 10 days Ceftriaxone 1g Q24, Azithromycin 500mg Q24 Prone positioning, Oxygen support-maintain 02 saturations above 92%, incentive spirometry, Duonebs PRN, Will hold IV fluids for now, Lovenox 40mg BID, Tylenol fever/pain, Telemetry
[2020-12-06] MEDS ORDERED: Tocilizumab 400 MG/20 ML SDV SUBCUT ONE (15:37)
[2020-12-06] MEDS: cefTRIAXone 1 GM in Premix Bag 1 BAG IV SCH (17:30)
--- NOTE | 2020-12-06 17:52 | PN ---
KIP Physician - Brief Progress [id number]/08/2021 16:25[facility] Rosi Rivera, [place] [facility] MWN ROSALIA COLLINS, COVID+Date of Service 12/06/2020 16:25 HPI/Events of Note eICU Admission NotePt is a 80 yo F presenting on 12/05 to the ED with weakness and D IB. PMH includes GERD, remote tobacco habituation (no smoking > 10 yrs) and Vertigo. Daughter reports pt satting in the 80's at home and that she was being treated as an outpatient for a UTI. In the ED her sats were in the 70's and she was placed on O2 via NC. She met SIRS criteria and had cultures sen t with a LA of 2. She was started emirically on Rocephin and Azithro and given a dose of Lasix x 1. S he was found to be COVID positive and started on Decadron, Remdesivir and Toci. Today she is still 2/ 2 SIRS positive. CXR did not appear to have infiltrates, UA has only a few bacteria and BCx drawn are still pending but negative thus far. In light of being on active antibiotics with positive SIRS, I w ould not recommend an additional dose of Toci. Pt is currently resting comfortably in bed in [facility]. She is on [place] at 10 L with an SpO2 of 96% and a RR of 26. Case was discussed with nursing staff and alexandr torres resident. eICU Recommendations:1) Continue Remdesivir and Dexamethasone per COVID treatment guidelines2) Recommend avoiding Toci if there is suspected underlying infection - discontinue active ly infusing dose3) Goal SpO2 > 90% 4) Consider HF NC or BIPAP if needed for increased work of breathi ng (RR >30-35)5) Encourage self -proning as able6) Increase activity as tolerated, ie up to a chair, ambulation to commode7) Continue 3-5 day course of antibiotics pending cultures and for UTI and likel y underlying COPD8) Repeat LA with initial level of 2 to ensure clearance7) GI/DVT prophylaxis per pr otocolThank you for allowing us to participate in the care of your patient.Interventions Major-Hypoxe nella - evaluation and management, Infection - evaluation and cevxurxvowMpkfahlsjjrk-Uvno-dtxsnlnk ther apies (e.g. VTE, beta layla, etc.), Communication with other healthcare providers and/or family, Me dication change / dose adjustment
[2020-12-06] MEDS: Dexamethasone 4 MG Tab PO SCH (17:54)
[2020-12-06] MEDS: REMDESIVIR 100 MG in Sodium Chloride 0.9% 100 ML IV SCH (19:17)
[2020-12-06] MEDS ORDERED: SODIUM CHLORIDE 0.9% IV SCH (19:56)
--- NOTE | 2020-12-06 20:03 | PN ---
THC Physician - Brief Progress [id number]/08/2021 19:59[facility] Rosi Rivera, RIAN - CATEN (GOOD) - ROSALIA PALENCIA COVID+Date of Service 12/06/2020 19:59 HPI/Events of Note Repeat LA came at 5.1. Will order one L of IVF with a repeat LA at midnight and 06 00. Case was discussed with her nurse Aura.Interventions Mztor-Nrta-Xjmu disturbance - evaluation and management, Sepsis - evaluation and management, Shock - evaluation and hpcdvwlvdqDyizfbunbzko-Wgox-i ractice therapies (e.g. VTE, beta layla, etc.), Communication with other healthcare providers and/o r family, Medication change / dose adjustmentElectronically Signed by: SETH AGUIRRE () on 2020 20:02
[2020-12-06] MEDS: Enoxaparin 30 MG/0.3 ML Syringe SUBCUT SCH (20:12)
[2020-12-06] MEDS: Azithromycin 500 MG in Sodium Chloride 0.9% 250 ML IV SCH (20:12)
--- NOTE | 2020-12-06 23:43 | PCM.SN.2 ---
- Free Text/Narrative Note: Pateint has received fluid bolus. PAtient reports feeling better, I performed a sepsis focus exam. Will repeat lactic acid level
[2020-12-07] MEDS: Albuterol/Ipratropium 4 GM Inhalation Spray INH SCH ×5 (03:34→20:06)
[2020-12-07 07:05] LABS: CARBON DIOXIDE,CO2 20.6 mmol/L (21.0-32.0); POTASSIUM,K 3.7 mmol/L (3.5-5.1)
[2020-12-07 07:07] VITALS: PULSE 62
[2020-12-07] MEDS: Dexamethasone 4 MG Tab PO SCH (08:07)
[2020-12-07] MEDS: Cholecalciferol (Vitamin D3) 25 MCG Tab PO SCH (08:07)
[2020-12-07] MEDS: Pantoprazole 40 MG in Sodium Chloride 0.9% 10 ML IV SCH (08:08)
--- NOTE | 2020-12-07 11:12 | PCM.PN ---
- General Info Date of Service: 12/07/20 Subjective Update: Patient states she feels better than from previous day. Denies SOB, chest pain, abdominal pain. States lack of appetite but is tolerating PO fluids. - Review of Systems General: Reports: Weakness. Denies: Fever, Chills Pulmonary: Denies: Shortness of Breath, Cough Cardiovascular: Denies: Chest Pain, Orthopnea Gastrointestinal: Denies: Abdominal Pain, Nausea, Vomiting Neurological: Denies: Confusion Psychiatric: Denies: Confusion - Patient Data Vitals - Most Recent: Last Vital Signs Temp 97.4 F 12/07/20 08:00 Pulse 62 12/07/20 07:00 Resp 19 12/07/20 09:00 BP 106/60 12/07/20 09:00 Pulse Ox 92 L 12/07/20 09:00 Weight - Most Recent: 130 lb 12.8 oz I&O - Last 24 Hours: Intake & Output 12/06/20 12/07/20 12/07/20 22:59 06:59 14:59 Intake Total 350 1459 Balance 350 1459 Lab Results Last 24 Hours: Laboratory Results - last 24 hr 12/06/20 12/06/20 12/06/20 Range/Units 14:45 18:32 23:59 WBC (4.0-11.0) K/uL RBC (4.30-5.90) M/uL Hgb (12.0-16.0) g/dL Hct (36.0-46.0) % MCV (80.0-98.0) fL MCH (27.0-32.0) pg MCHC (31.0-37.0) g/dL RDW Std Deviation (28.0-62.0) fl RDW Coeff of Tulio (11.0-15.0) % Plt Count (150-400) K/uL MPV (7.40-12.00) fL Neut % (Auto) (48.0-80.0) % Lymph % (Auto) (16.0-40.0) % Woodson % (Auto) (0.0-15.0) % Eos % (Auto) (0.0-7.0) % Baso % (Auto) (0.0-1.5) % Neut # (Auto) (1.4-5.7) K/uL Lymph # (Auto) (0.6-2.4) K/uL Woodson # (Auto) (0.0-0.8) K/uL Eos # (Auto) (0.0-0.7) K/uL Baso # (Auto) (0.0-0.1) K/uL Nucleated RBC % /100WBC Nucleated RBCs # K/uL ABG pH 7.39 (7.35-7.45) ABG pCO2 28 L (35-45) mmHG ABG pO2 57 L (80-105) mmHG ABG HCO3 17 L (22-26) mEq/L ABG Total CO2 15.3 L (23-27) mmol/L ABG Base Excess -6.7 L (-2.0-3.0) Sodium (136-145) mmol/L Potassium (3.5-5.1) mmol/L Chloride (98-107) mmol/L Carbon Dioxide (21.0-32.0) mmol/L BUN (7.0-18.0) mg/dL Creatinine (0.6-1.0) mg/dL Est Cr Clr Drug Dosing mL/min Estimated GFR (MDRD) ml/min Glucose (74-106) mg/dL Lactic Acid 5.1 H* 2.1 H* (0.4-2.0) mmol/L Calcium (8.5-10.1) mg/dL Total Bilirubin (0.2-1.0) mg/dL AST (15-37) IU/L ALT (14-63) IU/L Alkaline Phosphatase (46-116) U/L Total Protein (6.4-8.2) g/dL Albumin (3.4-5.0) g/dL Globulin (2.6-4.0) g/dL Albumin/Globulin Ratio (0.9-1.6) 12/07/20 12/07/20 12/07/20 Range/Units 06:19 06:19 06:19 WBC 6.75 (4.0-11.0) K/uL RBC 4.05 L (4.30-5.90) M/uL Hgb 12.0 (12.0-16.0) g/dL Hct 35.4 L (36.0-46.0) % MCV 87.4 (80.0-98.0) fL MCH 29.6 (27.0-32.0) pg MCHC 33.9 (31.0-37.0) g/dL RDW Std Deviation 42.7 (28.0-62.0) fl RDW Coeff of Tulio 13 (11.0-15.0) % Plt Count 137 L (150-400) K/uL MPV 9.60 (7.40-12.00) fL Neut % (Auto) 84.0 H (48.0-80.0) % Lymph % (Auto) 11.3 L (16.0-40.0) % Woodson % (Auto) 4.6 (0.0-15.0) % Eos % (Auto) 0.0 (0.0-7.0) % Baso % (Auto) 0.1 (0.0-1.5) % Neut # (Auto) 5.7 (1.4-5.7) K/uL Lymph # (Auto) 0.8 (0.6-2.4) K/uL Woodson # (Auto) 0.3 (0.0-0.8) K/uL Eos # (Auto) 0.0 (0.0-0.7) K/uL Baso # (Auto) 0.0 (0.0-0.1) K/uL Nucleated RBC % 0.0 /100WBC Nucleated RBCs # 0 K/uL ABG pH (7.35-7.45) ABG pCO2 (35-45) mmHG ABG pO2 (80-105) mmHG ABG HCO3 (22-26) mEq/L ABG Total CO2 (23-27) mmol/L ABG Base Excess (-2.0-3.0) Sodium 138 (136-145) mmol/L Potassium 3.7 (3.5-5.1) mmol/L Chloride 106 (98-107) mmol/L Carbon Dioxide 20.6 L (21.0-32.0) mmol/L BUN 41 H (7.0-18.0) mg/dL Creatinine 1.8 H (0.6-1.0) mg/dL Est Cr Clr Drug Dosing 23.74 mL/min Estimated GFR (MDRD) 27.1 ml/min Glucose 222 H (74-106) mg/dL Lactic Acid 1.9 (0.4-2.0) mmol/L Calcium 7.6 L (8.5-10.1) mg/dL Total Bilirubin 0.2 (0.2-1.0) mg/dL AST 43 H (15-37) IU/L ALT 21 (14-63) IU/L Alkaline Phosphatase 36 L (46-116) U/L Total Protein 5.2 L (6.4-8.2) g/dL Albumin 2.3 L (3.4-5.0) g/dL Globulin 2.9 (2.6-4.0) g/dL Albumin/Globulin Ratio 0.8 L (0.9-1.6) Jose Results Last 24 Hours: Microbiology 12/05/20 16:30 Aerobic Blood Culture - Preliminary Blood - Venous - Lab Draw NO GROWTH AFTER 1 DAY Anaerobic Blood Culture - Preliminary NO GROWTH AFTER 1 DAY 12/05/20 16:10 Aerobic Blood Culture - Preliminary Blood - Venous NO GROWTH AFTER 1 DAY Anaerobic Blood Culture - Preliminary NO GROWTH AFTER 1 DAY Med Orders - Current: Current Medications Acetaminophen (Acetaminophen 325 Mg Tab) 650 mg PO Q4H PRN PRN Reason: Pain (Mild 1-3)/fever Albuterol/Ipratropium (Albuterol/Ipratropium 3.0-0.5 Mg/3 Ml Neb Soln) 3 ml NEB Q4HRRT PRN PRN Reason: Shortness of Breath Last Admin: 12/06/20 13:24 Dose: 3 ml Documented by: Albuterol/Ipratropium (Albuterol/Ipratropium 4 Gm Inhalation [place]) 0 gm INH Q4H [facility] Last Admin: 12/07/20 08:07 Dose: 1 puff Documented by: Cholecalciferol (Cholecalciferol (Vitamin D3) 25 Mcg Tab) 100 mcg PO DAILY [facility] Last Admin: 12/07/20 08:07 Dose: 100 mcg Documented by: Dexamethasone (Dexamethasone 4 Mg Tab) 6 mg PO DAILY [facility] Last Admin: 12/07/20 08:07 Dose: 6 mg Documented by: Enoxaparin Sodium (Enoxaparin 30 Mg/0.3 Ml Syringe) 30 mg SUBCUT Q24H [facility] Last Admin: 12/06/20 20:12 Dose: 30 mg Documented by: Remdesivir 100 mg/ Sodium (Chloride) 100 mls @ 100 mls/hr IV Q24H [facility] Stop: 12/09/20 19:59 Last Admin: 12/06/20 19:17 Dose: 100 mls/hr Documented by: Pantoprazole Sodium 40 mg/ (Sodium Chloride) 10 mls @ 300 mls/hr IV Q24H [facility] Last Admin: 12/07/20 08:08 Dose: 300 mls/hr Documented by: Ceftriaxone Sodium/Dextrose 1 (gm/ Premix) 50 mls @ 100 mls/hr IV Q24H [facility] Last Admin: 12/06/20 17:30 Dose: 100 mls/hr Documented by: Azithromycin 500 mg/ Sodium (Chloride) 250 mls @ 250 mls/hr IV Q24H [facility] Last Admin: 12/06/20 20:12 Dose: 250 mls/hr Documented by: Polyethylene Glycol (Polyethylene Glycol 3350 Powder 17 Gm Packet) 17 gm PO DAILY PRN PRN Reason: Constipation Sodium Chloride (Sodium Chloride 0.9% 10 Ml Syringe) 10 ml FLUSH ASDIRECTED PRN PRN Reason: Keep Vein Open Last Admin: 12/05/20 16:41 Dose: 10 ml Documented by: Sodium Chloride (Sodium Chloride 0.9% 2.5 Ml Syringe) 2.5 ml FLUSH ASDIRECTED PRN PRN Reason: Keep Vein Open Last Admin: 12/05/20 16:41 Dose: 2.5 ml Documented by: Sodium Chloride (Sodium Chloride 0.9% 10 Ml Syringe) 10 ml FLUSH ASDIRECTED PRN PRN Reason: Keep Vein Open Sodium Chloride (Sodium Chloride 0.9% 2.5 Ml Syringe) 2.5 ml FLUSH ASDIRECTED PRN PRN Reason: Keep Vein Open Discontinued Medications Dexamethasone (Dexamethasone 4 Mg Tab) 6 mg PO ONETIME ONE Stop: 12/05/20 17:38 Last Admin: 12/05/20 19:27 Dose: 6 mg Documented by: Enoxaparin Sodium (Enoxaparin 40 Mg/0.4 Ml Syringe) 40 mg SUBCUT Q12HR [facility] Last Admin: 12/06/20 01:55 Dose: Not Given Documented by: Enoxaparin Sodium (Enoxaparin 40 Mg/0.4 Ml Syringe) 40 mg SUBCUT BEDTIME DIANA Stop: 12/05/20 21:01 Last Admin: 12/05/20 20:51 Dose: 40 mg Documented by: Furosemide (Furosemide 20 Mg/2 Ml Vial) 20 mg IVPUSH ONETIME ONE Stop: 12/05/20 17:41 Last Admin: 12/05/20 19:26 Dose: 20 mg Documented by: Sodium Chloride (Normal Saline) 1,000 mls @ 1,000 mls/hr IV BOLUS ONE; Protocol Stop: 12/05/20 17:15 Last Admin: 12/05/20 16:40 Dose: 1,000 mls/hr Documented by: Ceftriaxone Sodium/Dextrose 1 (gm/ Premix) 50 mls @ 100 mls/hr IV ONETIME ONE Stop: 12/05/20 16:47 Last Admin: 12/05/20 16:41 Dose: 100 mls/hr Documented by: Sodium Chloride (Normal Saline) 1,000 mls @ 800 mls/hr IV .Bolus ONE Stop: 12/05/20 17:47 Last Admin: 12/05/20 18:07 Dose: Not Given Documented by: Remdesivir 200 mg/ Sodium (Chloride) 250 mls @ 250 mls/hr IV ONETIME ONE Stop: 12/05/20 17:36 Last Admin: 12/05/20 19:24 Dose: 250 mls/hr Documented by: Tocilizumab 400 mg/ Sodium (Chloride) 120 mls @ 120 mls/hr IV ONETIME ONE Stop: 12/06/20 17:14 Last Admin: 12/06/20 16:25 Dose: 120 mls/hr Documented by: Sodium Chloride (Normal Saline) 1,159 mls @ 579.5 mls/hr IV ASDIRECTED [facility]; Protocol Stop: 12/06/20 21:55 Last Admin: 12/06/20 20:11 Dose: 579.5 mls/hr Documented by: - Exam Lungs: Decreased Breath Sounds, Wheezing Cardiovascular: Regular Rate GI/Abdominal Exam: Soft, Non-Tender Extremities: No Pedal Edema Psy/Mental Status: Alert - Patient Data Lab Results Last 24 hrs: Laboratory Results - last 24 hr 12/06/20 12/06/20 12/06/20 Range/Units 14:45 18:32 23:59 WBC (4.0-11.0) K/uL RBC (4.30-5.90) M/uL Hgb (12.0-16.0) g/dL Hct (36.0-46.0) % MCV (80.0-98.0) fL MCH (27.0-32.0) pg MCHC (31.0-37.0) g/dL RDW Std Deviation (28.0-62.0) fl RDW Coeff of Tulio (11.0-15.0) % Plt Count (150-400) K/uL MPV (7.40-12.00) fL Neut % (Auto) (48.0-80.0) % Lymph % (Auto) (16.0-40.0) % Woodson % (Auto) (0.0-15.0) % Eos % (Auto) (0.0-7.0) % Baso % (Auto) (0.0-1.5) % Neut # (Auto) (1.4-5.7) K/uL Lymph # (Auto) (0.6-2.4) K/uL Woodson # (Auto) (0.0-0.8) K/uL Eos # (Auto) (0.0-0.7) K/uL Baso # (Auto) (0.0-0.1) K/uL Nucleated RBC % /100WBC Nucleated RBCs # K/uL ABG pH 7.39 (7.35-7.45) ABG pCO2 28 L (35-45) mmHG ABG pO2 57 L (80-105) mmHG ABG HCO3 17 L (22-26) mEq/L ABG Total CO2 15.3 L (23-27) mmol/L ABG Base Excess -6.7 L (-2.0-3.0) Sodium (136-145) mmol/L Potassium (3.5-5.1) mmol/L Chloride (98-107) mmol/L Carbon Dioxide (21.0-32.0) mmol/L BUN (7.0-18.0) mg/dL Creatinine (0.6-1.0) mg/dL Est Cr Clr Drug Dosing mL/min Estimated GFR (MDRD) ml/min Glucose (74-106) mg/dL Lactic Acid 5.1 H* 2.1 H* (0.4-2.0) mmol/L Calcium (8.5-10.1) mg/dL Total Bilirubin (0.2-1.0) mg/dL AST (15-37) IU/L ALT (14-63) IU/L Alkaline Phosphatase (46-116) U/L Total Protein (6.4-8.2) g/dL Albumin (3.4-5.0) g/dL Globulin (2.6-4.0) g/dL Albumin/Globulin Ratio (0.9-1.6) 12/07/20 12/07/20 12/07/20 Range/Units 06:19 06:19 06:19 WBC 6.75 (4.0-11.0) K/uL RBC 4.05 L (4.30-5.90) M/uL Hgb 12.0 (12.0-16.0) g/dL Hct 35.4 L (36.0-46.0) % MCV 87.4 (80.0-98.0) fL MCH 29.6 (27.0-32.0) pg MCHC 33.9 (31.0-37.0) g/dL RDW Std Deviation 42.7 (28.0-62.0) fl RDW Coeff of Tulio 13 (11.0-15.0) % Plt Count 137 L (150-400) K/uL MPV 9.60 (7.40-12.00) fL Neut % (Auto) 84.0 H (48.0-80.0) % Lymph % (Auto) 11.3 L (16.0-40.0) % Woodson % (Auto) 4.6 (0.0-15.0) % Eos % (Auto) 0.0 (0.0-7.0) % Baso % (Auto) 0.1 (0.0-1.5) % Neut # (Auto) 5.7 (1.4-5.7) K/uL Lymph # (Auto) 0.8 (0.6-2.4) K/uL Woodson # (Auto) 0.3 (0.0-0.8) K/uL Eos # (Auto) 0.0 (0.0-0.7) K/uL Baso # (Auto) 0.0 (0.0-0.1) K/uL Nucleated RBC % 0.0 /100WBC Nucleated RBCs # 0 K/uL ABG pH (7.35-7.45) ABG pCO2 (35-45) mmHG ABG pO2 (80-105) mmHG ABG HCO3 (22-26) mEq/L ABG Total CO2 (23-27) mmol/L ABG Base Excess (-2.0-3.0) Sodium 138 (136-145) mmol/L Potassium 3.7 (3.5-5.1) mmol/L Chloride 106 (98-107) mmol/L Carbon Dioxide 20.6 L (21.0-32.0) mmol/L BUN 41 H (7.0-18.0) mg/dL Creatinine 1.8 H (0.6-1.0) mg/dL Est Cr Clr Drug Dosing 23.74 mL/min Estimated GFR (MDRD) 27.1 ml/min Glucose 222 H (74-106) mg/dL Lactic Acid 1.9 (0.4-2.0) mmol/L Calcium 7.6 L (8.5-10.1) mg/dL Total Bilirubin 0.2 (0.2-1.0) mg/dL AST 43 H (15-37) IU/L ALT 21 (14-63) IU/L Alkaline Phosphatase 36 L (46-116) U/L Total Protein 5.2 L (6.4-8.2) g/dL Albumin 2.3 L (3.4-5.0) g/dL Globulin 2.9 (2.6-4.0) g/dL Albumin/Globulin Ratio 0.8 L (0.9-1.6) Result Diagrams: 12/07/20 06:19 12/07/20 06:19 Jose Results Last 24 hrs: Microbiology 12/05/20 16:30 Aerobic Blood Culture - Preliminary Blood - Venous - Lab Draw NO GROWTH AFTER 1 DAY Anaerobic Blood Culture - Preliminary NO GROWTH AFTER 1 DAY 12/05/20 16:10 Aerobic Blood Culture - Preliminary Blood - Venous NO GROWTH AFTER 1 DAY Anaerobic Blood Culture - Preliminary NO GROWTH AFTER 1 DAY Sepsis Event Note - Evaluation Sepsis Screening Result: Severe Sepsis Risk - Focused Exam Vital Signs: Vital Signs Temp Pulse Resp BP Pulse Ox 12/07/20 09:00 19 106/60 92 L 12/07/20 08:00 97.4 F 17 90/57 L 92 L 12/07/20 07:00 62 16 87/42 L 96 12/07/20 06:00 70 27 H 96/41 L 93 L 12/07/20 05:00 65 15 93/45 L 94 L 12/07/20 03:50 66 17 102/53 L 95 12/07/20 03:00 96.8 F L 70 26 H 93/51 L 94 L 12/07/20 02:00 69 20 92/43 L 95 12/07/20 01:00 74 25 H 121/57 L 92 L 12/07/20 00:00 76 14 90/42 L 90 L - Problem List & Annotations (1) COVID-19 SNOMED Code(s): 927695728 Code(s): U07.1 - COVID-19 Status: Acute Current Visit: Yes (2) Dehydration SNOMED Code(s): 14614945 Code(s): E86.0 - DEHYDRATION Status: Acute Current Visit: Yes (3) Respiratory failure SNOMED Code(s): 846853793 Code(s): J96.90 - RESPIRATORY FAILURE, UNSP, UNSP W HYPOXIA OR HYPERCAPNIA Status: Acute Current Visit: Yes - Problem List Review Problem List Initiated/Reviewed/Updated: Yes - My Orders Last 24 Hours: My Active Orders 12/06/20 17:00 cefTRIAXone [Rocephin in Dextrose,Iso-Osm 1 GM/50 ML] 1 gm Premix Bag 1 bag IV Q24H dexAMETHasone 6 mg PO DAILY 12/06/20 19:00 Remdesivir 100 mg Sodium Chloride 0.9% [Normal Saline] 100 ml IV Q24H 12/07/20 06:19 GLYCOSYLATED HEMOGLOBIN,HGBA1C [CHEM] Routine 12/07/20 09:00 Cholecalciferol (Vitamin D3) [Vitamin D3] 100 mcg PO DAILY 12/08/20 05:11 CMP [COMPREHENSIVE METABOLIC PN,CMP] [CHEM] AM 12/09/20 05:11 CMP [COMPREHENSIVE METABOLIC PN,CMP] [CHEM] AM 12/10/20 05:11 CMP [COMPREHENSIVE METABOLIC PN,CMP] [CHEM] AM - Plan Plan:: Covid P[place]- Remdesivir- day 2-5 100mg daily Dexamethasone 6 mg p.o. X 10 days Ceftriaxone 1g Q24, Azithromycin 500mg Q24 Prone positioning, Oxygen support-maintain 02 saturations above 92% (patient currently on Fio2 80% flow 50), incentive spirometry, Duonebs PRN, Lovenox 40mg BID, Tylenol fever/pain, Telemetry, Vit D3 Encourage patient to consume Juice and Ensure in addition to plain water.
[2020-12-07 11:17] LABS: HEMOGLOBIN A1C 6.4 %
[2020-12-07] MEDS: cefTRIAXone 1 GM in Premix Bag 1 BAG IV SCH (16:45)
[2020-12-07] MEDS: REMDESIVIR 100 MG in Sodium Chloride 0.9% 100 ML IV SCH (19:22)
[2020-12-07] MEDS: Azithromycin 500 MG in Sodium Chloride 0.9% 250 ML IV SCH (20:03)
[2020-12-07] MEDS: Enoxaparin 30 MG/0.3 ML Syringe SUBCUT SCH (20:48)
[2020-12-08] MEDS: Albuterol/Ipratropium 4 GM Inhalation Spray INH SCH ×6 (00:12→19:25)
[2020-12-08 06:28] LABS: CARBON DIOXIDE,CO2 19.9 mmol/L (21.0-32.0); POTASSIUM,K 3.9 mmol/L (3.5-5.1)
[2020-12-08] MEDS: Dexamethasone 4 MG Tab PO SCH (08:06)
[2020-12-08] MEDS: Cholecalciferol (Vitamin D3) 25 MCG Tab PO SCH (08:07)
[2020-12-08] MEDS: Pantoprazole 40 MG in Sodium Chloride 0.9% 10 ML IV SCH (08:07)
--- NOTE | 2020-12-08 10:14 | PCM.PN ---
- General Info Date of Service: 12/08/20 Subjective Update: Patient states improvement from the prior day. States less fatigue, easier to breath. Denies fever, chills, abdominal pain. Appetite is slowly retuning. - Review of Systems General: Denies: Fever, Chills Pulmonary: Reports: Shortness of Breath, Cough Cardiovascular: Denies: Chest Pain Gastrointestinal: Denies: Abdominal Pain, Nausea, Vomiting Neurological: Denies: Confusion, Dizziness, Headache Psychiatric: Denies: Confusion - Patient Data Vitals - Most Recent: Last Vital Signs Temp 97.2 F 12/08/20 08:00 Pulse 62 12/07/20 07:00 Resp 21 H 12/08/20 09:00 BP 129/71 12/08/20 09:00 Pulse Ox 92 L 12/08/20 09:00 Weight - Most Recent: 131 lb 11.2 oz I&O - Last 24 Hours: Intake & Output 12/07/20 12/08/20 12/08/20 22:59 06:59 14:59 Intake Total 540 800 Output Total 400 850 Balance 140 -50 Lab Results Last 24 Hours: Laboratory Results - last 24 hr 12/07/20 12/08/20 12/08/20 Range/Units 06:19 05:47 05:47 WBC 9.92 (4.0-11.0) K/uL RBC 4.12 L (4.30-5.90) M/uL Hgb 12.0 (12.0-16.0) g/dL Hct 35.9 L (36.0-46.0) % MCV 87.1 (80.0-98.0) fL MCH 29.1 (27.0-32.0) pg MCHC 33.4 (31.0-37.0) g/dL RDW Std Deviation 42.7 (28.0-62.0) fl RDW Coeff of Tulio 13 (11.0-15.0) % Plt Count 156 (150-400) K/uL MPV 10.10 (7.40-12.00) fL Neut % (Auto) 87.4 H (48.0-80.0) % Lymph % (Auto) 6.9 L (16.0-40.0) % Cross % (Auto) 5.6 (0.0-15.0) % Eos % (Auto) 0.0 (0.0-7.0) % Baso % (Auto) 0.1 (0.0-1.5) % Neut # (Auto) 8.7 H (1.4-5.7) K/uL Lymph # (Auto) 0.7 (0.6-2.4) K/uL Cross # (Auto) 0.6 (0.0-0.8) K/uL Eos # (Auto) 0.0 (0.0-0.7) K/uL Baso # (Auto) 0.0 (0.0-0.1) K/uL Nucleated RBC % 0.0 /100WBC Nucleated RBCs # 0 K/uL Sodium 141 (136-145) mmol/L Potassium 3.9 (3.5-5.1) mmol/L Chloride 109 H (98-107) mmol/L Carbon Dioxide 19.9 L (21.0-32.0) mmol/L BUN 43 H (7.0-18.0) mg/dL Creatinine 1.5 H (0.6-1.0) mg/dL Est Cr Clr Drug Dosing 28.48 mL/min Estimated GFR (MDRD) 33.5 ml/min Glucose 221 H (74-106) mg/dL Hemoglobin A1c 6.4 H (4.5 - 6.2) % Calcium 7.9 L (8.5-10.1) mg/dL Total Bilirubin 0.2 (0.2-1.0) mg/dL AST 41 H (15-37) IU/L ALT 24 (14-63) IU/L Alkaline Phosphatase 36 L (46-116) U/L Total Protein 5.3 L (6.4-8.2) g/dL Albumin 2.3 L (3.4-5.0) g/dL Globulin 3.0 (2.6-4.0) g/dL Albumin/Globulin Ratio 0.8 L (0.9-1.6) Jose Results Last 24 Hours: Microbiology 12/05/20 16:30 Aerobic Blood Culture - Preliminary Blood - Venous - Lab Draw NO GROWTH AFTER 2 DAYS Anaerobic Blood Culture - Preliminary NO GROWTH AFTER 2 DAYS 12/05/20 16:10 Aerobic Blood Culture - Preliminary Blood - Venous NO GROWTH AFTER 2 DAYS Anaerobic Blood Culture - Preliminary NO GROWTH AFTER 2 DAYS Med Orders - Current: Current Medications Acetaminophen (Acetaminophen 325 Mg Tab) 650 mg PO Q4H PRN PRN Reason: Pain (Mild 1-3)/fever Albuterol/Ipratropium (Albuterol/Ipratropium 3.0-0.5 Mg/3 Ml Neb Soln) 3 ml NEB Q4HRRT PRN PRN Reason: Shortness of Breath Last Admin: 12/06/20 13:24 Dose: 3 ml Documented by: Albuterol/Ipratropium (Albuterol/Ipratropium 4 Gm Inhalation [place]) 0 gm INH Q4H [facility] Last Admin: 12/08/20 08:06 Dose: 1 puff Documented by: Cholecalciferol (Cholecalciferol (Vitamin D3) 25 Mcg Tab) 100 mcg PO DAILY [facility] Last Admin: 12/08/20 08:07 Dose: 100 mcg Documented by: Dexamethasone (Dexamethasone 4 Mg Tab) 6 mg PO DAILY [facility] Last Admin: 12/08/20 08:06 Dose: 6 mg Documented by: Enoxaparin Sodium (Enoxaparin 30 Mg/0.3 Ml Syringe) 30 mg SUBCUT Q24H [facility] Last Admin: 12/07/20 20:48 Dose: 30 mg Documented by: Remdesivir 100 mg/ Sodium (Chloride) 100 mls @ 100 mls/hr IV Q24H [facility] Stop: 12/09/20 19:59 Last Admin: 12/07/20 19:22 Dose: 100 mls/hr Documented by: Pantoprazole Sodium 40 mg/ (Sodium Chloride) 10 mls @ 300 mls/hr IV Q24H [facility] Last Admin: 12/08/20 08:07 Dose: 300 mls/hr Documented by: Ceftriaxone Sodium/Dextrose 1 (gm/ Premix) 50 mls @ 100 mls/hr IV Q24H [facility] Last Admin: 12/07/20 16:45 Dose: 100 mls/hr Documented by: Azithromycin 500 mg/ Sodium (Chloride) 250 mls @ 250 mls/hr IV Q24H [facility] Last Admin: 12/07/20 20:03 Dose: 250 mls/hr Documented by: Polyethylene Glycol (Polyethylene Glycol 3350 Powder 17 Gm Packet) 17 gm PO DAILY PRN PRN Reason: Constipation Sodium Chloride (Sodium Chloride 0.9% 10 Ml Syringe) 10 ml FLUSH ASDIRECTED PRN PRN Reason: Keep Vein Open Last Admin: 12/05/20 16:41 Dose: 10 ml Documented by: Sodium Chloride (Sodium Chloride 0.9% 2.5 Ml Syringe) 2.5 ml FLUSH ASDIRECTED PRN PRN Reason: Keep Vein Open Last Admin: 12/05/20 16:41 Dose: 2.5 ml Documented by: Sodium Chloride (Sodium Chloride 0.9% 10 Ml Syringe) 10 ml FLUSH ASDIRECTED PRN PRN Reason: Keep Vein Open Sodium Chloride (Sodium Chloride 0.9% 2.5 Ml Syringe) 2.5 ml FLUSH ASDIRECTED PRN PRN Reason: Keep Vein Open Discontinued Medications Dexamethasone (Dexamethasone 4 Mg Tab) 6 mg PO ONETIME ONE Stop: 12/05/20 17:38 Last Admin: 12/05/20 19:27 Dose: 6 mg Documented by: Enoxaparin Sodium (Enoxaparin 40 Mg/0.4 Ml Syringe) 40 mg SUBCUT Q12HR [facility] Last Admin: 12/06/20 01:55 Dose: Not Given Documented by: Enoxaparin Sodium (Enoxaparin 40 Mg/0.4 Ml Syringe) 40 mg SUBCUT BEDTIME [facility] Stop: 12/05/20 21:01 Last Admin: 12/05/20 20:51 Dose: 40 mg Documented by: Furosemide (Furosemide 20 Mg/2 Ml Vial) 20 mg IVPUSH ONETIME ONE Stop: 12/05/20 17:41 Last Admin: 12/05/20 19:26 Dose: 20 mg Documented by: Sodium Chloride (Normal Saline) 1,000 mls @ 1,000 mls/hr IV BOLUS ONE; Protocol Stop: 12/05/20 17:15 Last Admin: 12/05/20 16:40 Dose: 1,000 mls/hr Documented by: Ceftriaxone Sodium/Dextrose 1 (gm/ Premix) 50 mls @ 100 mls/hr IV ONETIME ONE Stop: 12/05/20 16:47 Last Admin: 12/05/20 16:41 Dose: 100 mls/hr Documented by: Sodium Chloride (Normal Saline) 1,000 mls @ 800 mls/hr IV .Bolus ONE Stop: 12/05/20 17:47 Last Admin: 12/05/20 18:07 Dose: Not Given Documented by: Remdesivir 200 mg/ Sodium (Chloride) 250 mls @ 250 mls/hr IV ONETIME ONE Stop: 12/05/20 17:36 Last Admin: 12/05/20 19:24 Dose: 250 mls/hr Documented by: Tocilizumab 400 mg/ Sodium (Chloride) 120 mls @ 120 mls/hr IV ONETIME ONE Stop: 12/06/20 17:14 Last Admin: 12/06/20 16:25 Dose: 120 mls/hr Documented by: Sodium Chloride (Normal Saline) 1,159 mls @ 579.5 mls/hr IV ASDIRECTED DIANA; Protocol Stop: 12/06/20 21:55 Last Admin: 12/06/20 20:11 Dose: 579.5 mls/hr Documented by: - Exam Quality Assessment: Supplemental Oxygen General: Alert Lungs: Decreased Breath Sounds, Wheezing Cardiovascular: Regular Rate, Regular Rhythm Psy/Mental Status: Alert - Patient Data Lab Results Last 24 hrs: Laboratory Results - last 24 hr 12/07/20 12/08/20 12/08/20 Range/Units 06:19 05:47 05:47 WBC 9.92 (4.0-11.0) K/uL RBC 4.12 L (4.30-5.90) M/uL Hgb 12.0 (12.0-16.0) g/dL Hct 35.9 L (36.0-46.0) % MCV 87.1 (80.0-98.0) fL MCH 29.1 (27.0-32.0) pg MCHC 33.4 (31.0-37.0) g/dL RDW Std Deviation 42.7 (28.0-62.0) fl RDW Coeff of Tulio 13 (11.0-15.0) % Plt Count 156 (150-400) K/uL MPV 10.10 (7.40-12.00) fL Neut % (Auto) 87.4 H (48.0-80.0) % Lymph % (Auto) 6.9 L (16.0-40.0) % Cross % (Auto) 5.6 (0.0-15.0) % Eos % (Auto) 0.0 (0.0-7.0) % Baso % (Auto) 0.1 (0.0-1.5) % Neut # (Auto) 8.7 H (1.4-5.7) K/uL Lymph # (Auto) 0.7 (0.6-2.4) K/uL Cross # (Auto) 0.6 (0.0-0.8) K/uL Eos # (Auto) 0.0 (0.0-0.7) K/uL Baso # (Auto) 0.0 (0.0-0.1) K/uL Nucleated RBC % 0.0 /100WBC Nucleated RBCs # 0 K/uL Sodium 141 (136-145) mmol/L Potassium 3.9 (3.5-5.1) mmol/L Chloride 109 H (98-107) mmol/L Carbon Dioxide 19.9 L (21.0-32.0) mmol/L BUN 43 H (7.0-18.0) mg/dL Creatinine 1.5 H (0.6-1.0) mg/dL Est Cr Clr Drug Dosing 28.48 mL/min Estimated GFR (MDRD) 33.5 ml/min Glucose 221 H (74-106) mg/dL Hemoglobin A1c 6.4 H (4.5 - 6.2) % Calcium 7.9 L (8.5-10.1) mg/dL Total Bilirubin 0.2 (0.2-1.0) mg/dL AST 41 H (15-37) IU/L ALT 24 (14-63) IU/L Alkaline Phosphatase 36 L (46-116) U/L Total Protein 5.3 L (6.4-8.2) g/dL Albumin 2.3 L (3.4-5.0) g/dL Globulin 3.0 (2.6-4.0) g/dL Albumin/Globulin Ratio 0.8 L (0.9-1.6) Result Diagrams: 12/08/20 05:47 12/08/20 05:47 Jose Results Last 24 hrs: Microbiology 12/05/20 16:30 Aerobic Blood Culture - Preliminary Blood - Venous - Lab Draw NO GROWTH AFTER 2 DAYS Anaerobic Blood Culture - Preliminary NO GROWTH AFTER 2 DAYS 12/05/20 16:10 Aerobic Blood Culture - Preliminary Blood - Venous NO GROWTH AFTER 2 DAYS Anaerobic Blood Culture - Preliminary NO GROWTH AFTER 2 DAYS Sepsis Event Note - Evaluation Sepsis Screening Result: No Definite Risk - Focused Exam Vital Signs: Vital Signs Temp Resp BP Pulse Ox 12/08/20 09:00 21 H 129/71 92 L 12/08/20 08:00 97.2 F 19 121/52 L 90 L 12/08/20 07:00 17 114/58 L 89 L 12/08/20 06:00 18 105/54 L 90 L 12/08/20 05:00 21 H 113/62 93 L 12/08/20 04:00 98.8 F 21 H 123/68 90 L 12/08/20 03:00 20 109/48 L 88 L 12/08/20 02:00 20 104/52 L 90 L 12/08/20 01:00 18 105/59 L 89 L 12/08/20 00:00 98.4 F 25 H 106/47 L 91 L 12/07/20 23:00 21 H 95/43 L 90 L - Problem List & Annotations (1) COVID-19 SNOMED Code(s): 236642207 Code(s): U07.1 - COVID-19 Status: Acute Current Visit: Yes (2) Dehydration SNOMED Code(s): 56366602 Code(s): E86.0 - DEHYDRATION Status: Acute Current Visit: Yes (3) Respiratory failure SNOMED Code(s): 215285749 Code(s): J96.90 - RESPIRATORY FAILURE, UNSP, UNSP W HYPOXIA OR HYPERCAPNIA Status: Acute Current Visit: Yes - Problem List Review Problem List Initiated/Reviewed/Updated: Yes - My Orders Last 24 Hours: My Active Orders 12/09/20 05:11 CBC WITH AUTO DIFF [HEME] AM CMP [COMPREHENSIVE METABOLIC PN,CMP] [CHEM] AM MAGNESIUM [CHEM] AM 12/10/20 05:11 CMP [COMPREHENSIVE METABOLIC PN,CMP] [CHEM] AM - Plan Plan:: Covid [place]- Remdesivir- day 2-5 100mg daily Dexamethasone 6 mg p.o. X 10 days Ceftriaxone 1g Q24, Azithromycin 500mg Q24 Prone positioning, Oxygen support-maintain 02 saturations above 92% (patient currently on Fio2 80% flow 50), incentive spirometry, Duonebs PRN, Lovenox 30mg, Tylenol fever/pain, Telemetry, Vit D3 Encourage patient to consume Juice and Ensure in addition to plain water.
--- NOTE | 2020-12-08 10:29 | PN ---
THC Physician - Brief Progress [id number]/10/2021 10:20[facility] Rosi hernández, [place] - CATEN (GOOD) - MWN ICUBOROSALIA THRASHER, COVID+Date of Service 12/08/2020 10:20 HPI/Events of Note Brief eICU NoteEMR reviewed. 80yo female admitted on 12/05 with COVID PNA, hypoxemi c respiratory failure.Patient seen on camera: interacting with bedside staff in NAD36.2 12 92% on HF 80%/50l 78 129/71Labs noted.Recommend:Continue daily labs including Mag and Phos if PO intake is poor .Glucose control for goal <180.Consider Echo to determine baseline function.If oxygenation worsens th en consider ABG and chest CTA.Please contact us if we may be of assistance.Interventions Major-Respir atory failure - evaluation and management
[2020-12-08] MEDS: cefTRIAXone 1 GM in Premix Bag 1 BAG IV SCH (16:26)
[2020-12-08] MEDS: REMDESIVIR 100 MG in Sodium Chloride 0.9% 100 ML IV SCH (18:03)
[2020-12-08] MEDS: Azithromycin 500 MG in Sodium Chloride 0.9% 250 ML IV SCH (19:25)
[2020-12-08] MEDS ORDERED: 50% Dextrose in Water 50 ML Syringe IVPUSH PRN (20:10)
[2020-12-08] MEDS ORDERED: Glucagon,Human Recombinant 1 MG Vial IM PRN (20:10)
[2020-12-08] MEDS: Enoxaparin 30 MG/0.3 ML Syringe SUBCUT SCH (20:56)
[2020-12-09] MEDS: Albuterol/Ipratropium 4 GM Inhalation Spray INH SCH ×4 (00:30→12:30)
[2020-12-09 06:17] LABS: CARBON DIOXIDE,CO2 23.3 mmol/L (21.0-32.0); POTASSIUM,K 3.7 mmol/L (3.5-5.1)
[2020-12-09] MEDS: Dexamethasone 4 MG Tab PO SCH (09:04)
[2020-12-09] MEDS: Pantoprazole 40 MG in Sodium Chloride 0.9% 10 ML IV SCH (09:05)
[2020-12-09] MEDS: Cholecalciferol (Vitamin D3) 25 MCG Tab PO SCH (09:06)
[2020-12-09] MEDS: Insulin Aspart 100 Units/ML 3 ML Pen SUBCUT SCH ×2 (09:07→13:13)
--- NOTE | 2020-12-09 10:26 | PN ---
THC Physician - Brief Progress [id number]/11/2021 10:25[facility] Rosi Rivera, [place] - MWN (ZACHN) - MWN ICUBOROSALIA THRASHER, COVID+Date of Service 12/09/2020 10:25 HPI/Events of Note eICU Progress [id number] admitted on 12/05 for COVID pneumonia. Course notable for wors ening hypoxia today AM while on HFNC, prompting primary service to trial BPAP. History obtained from review of EMR and discussion with bedside physician over telephone.Camera exam: Laying in bed on BPAP . Vitals monitor reviewed. Patient is pulling TV 1L, RR 30s, Leak 1-2L, IPAP 10, EPAP 5eICU Recommend ations:TV on BPAP of 1L very high - per EMR height is 1.73m, ~ 68in, IBW ~63kg, 8cc/kg ~500cc, curren t TV ~16cc/kg IBWDue to risk of barotrauma, accordingly suggest transition to CPAP mode, if patient c ontinues to demonstrate high tidal volumes/MV, or unable to tolerate due to work of breathing or hypo paola recommend intubationIsolation precautions per local policyDexamethasone 6mg daily for 10 daysDefe r remdesivir to local hospital policy, we are available to comment/assist if desired CRP now, if elev ated can consider use of tocilizumabSuggest targeting a neutral to negative net fluid balance as tole rated hemodynamicallyeICU will continue to follow and assist as desired.DVT and GI prophylaxis as melvin ropriate.Thank you for allowing us to participate in the care of this patient.Unless otherwise specif ied, defer implementation of above recommendations to discretion of bedside provider. Please do not h esitate to contact the eICU service for questions, clarification, or assistance with implementation.T he above note transcribed with the assistance of dictation software. Please excuse any errors.Interve ntions Major-Respiratory failure - evaluation and management
[2020-12-09] MEDS ORDERED: Succinylcholine 200 MG/10 ML MDV ONE (12:00)
[2020-12-09] MEDS ORDERED: Rocuronium 100 MG/10 ML MDV ONE (12:00)
[2020-12-09] MEDS ORDERED: propofoL 100 ML ONE (12:10)
--- NOTE | 2020-12-09 12:42 | PCM.PR.ETI ---
Endotracheal Intubation - Endotracheal Intubation Time of Intubation: 12:26 ET Intubation Indication: Other (Covid Pneumonia with sats in 80s) Preparation: BVM Set Up Airway Assessment: Other (MP II, full dentures) Pre-Oxygenation: Assisted with BVM, Other (Sat at 88% after pre-ox) Anesthesia Meds: Propofol (80mg), Rocuronium (10mg), Succinylcholine (120mg) Placement: Cuffed, Uncomplicated Placement Cords Visualized: Yes, Grade 1 ETT Size In mm: 7.0 Number of Attempts: 1 Confirmed By: Bilateral Breath Sounds Tube Secured By: By RT (21cm at lips) Endotracheal Intubation Comment: Easy intubation with glidescope and full visualization.
[2020-12-09] MEDS ORDERED: FENTANYL IV PRN (12:44)
[2020-12-09] MEDS ORDERED: NORMAL SALINE IV PRN (12:44)
[2020-12-09] MEDS ORDERED: propofoL 100 ML IV SCH (12:45)
[2020-12-09] MEDS ORDERED: fentaNYL/Normal Saline 250 ML IV PRN (13:09)
--- NOTE | 2020-12-09 13:35 | CR ---
INDICATION: Intubation tube placement. TECHNIQUE: Chest 1 view. COMPARISON: Chest radiograph 12/05/2020. FINDINGS: Placement of endotracheal tube with tip 4.0 cm above the yvon. Entering tube with tip at the gastroesophageal junction. This should be advanced. Increased interstitial opacities throughout the lungs bilaterally, with a basilar predominance. This may be due to edema or atypical infection. New small nodular opacity in the right upper lung and new curvilinear band of density in the left lower lung. No large effusions. No pneumothorax. Normal heart size. The bones are unremarkable. IMPRESSION: 1. Endotracheal tube with tip 4.0 cm above the yvon. 2. Enteric tube with tip at the gastroesophageal junction. This should be advanced. 3. Increased interstitial opacities throughout the lungs bilaterally which may be due to edema or atypical infection. 4. New nodular opacity in the right upper lung and new curvilinear band of density in the left lower lung. Dictated by Kayleigh Vargas MD @ 12/09/2020 1:34:[address] Kayleigh Vargas @ Dec 09 2020 1:34PM
--- NOTE | 2020-12-09 14:05 | PCM.DCSUM1 ---
<Regis Mas - Last Filed: 12/09/20 14:24> Discharge Summary - Hospital Course Free Text/Narrative:: 80-year-old female presents the ED on 12-05-20 with generalized weakness, shortness of breath, hypoxia for the past week but has gotten significantly worse in the past 3 days. Patient being admitted for Covid pneumonia on 12-05-20. Patient's daughter who was in the room at the time of the examination states that patient had oxygen saturations at home this morning as low as 80%, which was measured with a finger pulse oximeter. Patient was recently seen in the ED on November 30 for abdominal pain. Chest x-ray at that time was negative. Patient also states that she is seen a medical provider this past week for a UTI and was prescribed nitrofurantoin which she has been taking consistently. Per patient's daughter, patient has no respiratory medical history including COPD or asthma. Patient was a smoker but quit roughly 10 years ago. Patient also has no cardiac history. Patient denies any recent travel, but states recent contact with another family member few days prior home is not feeling well currently. Patient has not been vaccinated against COVID-19. No significant past medical history of cardiac disease, no diagnosed respiratory disease. However suspect patient has undiagnosed COPD. Patient states that she was a heavy smoker and quit smoking roughly 10 years ago. Patient is prediabetic as hemoglobin A1c was 6.4 on admission. ED work-up on 12-05-20 , vital signs respiratory rate 22, O2 saturation 95% on 5 L nasal cannula, 124/66 blood pressure, heart rate 83. Laboratory findings include white blood cell count 5.49, platelet count 145, ABG pH 7.44, PCO2 27, PO2 55, bicarb 19, sodium 132, potassium 3.8, BUN 29, creatinine 2.0, lactic acid 2.0, BNP 135. Patient was Covid positive the time of admission. Chest x-ray impression, interstitial edema or less likely an interstitial pneumonitis. Normal-sized heart. Patient admitted to the floor and began therapy to include Remdesivir (200mg X 1, day 2-5 100mg X 4), Dexamethasone 6 mg p.o. X 10 days, Ceftriaxone 1g Q24, Azithromycin 500mg Q24, Prone positioning, Oxygen support-maintain 02 saturations above 92%, incentive spirometry, Duonebs PRN, Will hold IV fluids for now, Lovenox, Tylenol fever/pain, Telemetry. During patient's admission course, patient required increasing amount of oxygen support. Patient's respiratory status began to decline overnight on 12-08-20 into the morning of 12-09-20. Patient was on heated high flow and was transitioned to CPAP due to increased respiratory rate and poor oxygen saturation. Patient was not able to tolerate CPAP and required intubation. At the time of transfer ventilation settings include FiO2 100%, rate 12, tidal volume 500, PEEP 5, pressure support 7. Vital signs include blood pressure 149/90, 92% O2 saturation, respiratory rate mid 20s. Lab work at the time of discharge includes white blood cell count 10.2, hemoglobin 12.3, hematocrit 36, platelet 169, sodium 145, potassium 3.7, chloride 112, BUN 39, creatinine 1.2, AST 53, ALT 31, CRP 1.5. - Discharge Data Discharge Date: 12/09/20 Discharge Disposition: DC/Tfer to Acute Hospital 02 Condition: Good - Referral to Home Health Primary Care Physician: Michael Palacios MD - Discharge Diagnosis/Problem(s) (1) COVID-19 SNOMED Code(s): 804857543 ICD Code: U07.1 - COVID-19 Status: Acute (2) Dehydration SNOMED Code(s): 72583624 ICD Code: E86.0 - DEHYDRATION Status: Acute (3) Respiratory failure SNOMED Code(s): 475984066 ICD Code: J96.90 - RESPIRATORY FAILURE, UNSP, UNSP W HYPOXIA OR HYPERCAPNIA Status: Acute - Discharge Plan Home Medications: Home Meds nitrofurantoin macrocrystaL [Nitrofurantoin] 1 dose PO BID 12/05/20 [History] Forms: ED Department Discharge Referrals: Michael Palacios MD [Primary Care Provider] - - Discharge Summary/Plan Comment DC Time >30 min.: Yes Total # of Minutes for Discharge Time: 60 - General Info Date of Service: 12/09/20 - Review of Systems General: Denies: Fever, Chills Pulmonary: Reports: Shortness of Breath Cardiovascular: Denies: Chest Pain, Edema Gastrointestinal: Denies: Abdominal Pain, Nausea, Vomiting - Patient Data Vitals - Most Recent: Last Vital Signs Temp 98.1 F 12/09/20 08:00 Pulse 62 12/07/20 07:00 Resp 22 H 12/09/20 10:00 BP 164/81 H 12/09/20 10:00 Pulse Ox 95 12/09/20 10:00 Weight - Most Recent: 58.377 kg I&O - Last 24 hours: Intake & Output 12/08/20 12/09/20 12/09/20 22:59 06:59 14:59 Intake Total 710 900 Output Total 500 700 Balance 210 200 Lab Results - Last 24 hrs: Laboratory Results - last 24 hr 12/09/20 12/09/20 12/09/20 Range/Units 05:10 05:10 05:10 WBC 10.22 (4.0-11.0) K/uL RBC 4.13 L (4.30-5.90) M/uL Hgb 12.3 (12.0-16.0) g/dL Hct 36.0 (36.0-46.0) % MCV 87.2 (80.0-98.0) fL MCH 29.8 (27.0-32.0) pg MCHC 34.2 (31.0-37.0) g/dL RDW Std Deviation 42.9 (28.0-62.0) fl RDW Coeff of Tulio 13 (11.0-15.0) % Plt Count 169 (150-400) K/uL MPV 10.30 (7.40-12.00) fL Add Manual Diff YES Neutrophils % (Manual) 82 H (48.0-80.0) % Band Neutrophils % 5 % Lymphocytes % (Manual) 8 L (16.0-40.0) % Monocytes % (Manual) 5 (0.0-15.0) % Nucleated RBC % 0.0 /100WBC Absolute Seg Neuts 8.4 H (1.4-5.7) Band Neutrophils # 0.5 Lymphocytes # (Manual) 0.8 (0.6-2.4) Monocytes # (Manual) 0.5 (0.0-0.8) Nucleated RBCs # 0 K/uL ABG pH (7.35-7.45) ABG pCO2 (35-45) mmHG ABG pO2 (80-105) mmHG ABG HCO3 (22-26) mEq/L ABG Total CO2 (23-27) mmol/L ABG Base Excess (-2.0-3.0) Sodium 145 (136-145) mmol/L Potassium 3.7 (3.5-5.1) mmol/L Chloride 112 H (98-107) mmol/L Carbon Dioxide 23.3 (21.0-32.0) mmol/L BUN 39 H (7.0-18.0) mg/dL Creatinine 1.2 H (0.6-1.0) mg/dL Est Cr Clr Drug Dosing 35.85 mL/min Estimated GFR (MDRD) 43.3 ml/min Glucose 257 H (74-106) mg/dL POC Glucose (70-99) mg/dL Calcium 8.0 L (8.5-10.1) mg/dL Magnesium 2.3 (1.8-2.4) mg/dL Total Bilirubin 0.3 (0.2-1.0) mg/dL AST 53 H (15-37) IU/L ALT 31 (14-63) IU/L Alkaline Phosphatase 46 (46-116) U/L C-Reactive Protein 1.50 H (0.00-0.90) mg/dL Total Protein 5.4 L (6.4-8.2) g/dL Albumin 2.4 L (3.4-5.0) g/dL Globulin 3.0 (2.6-4.0) g/dL Albumin/Globulin Ratio 0.8 L (0.9-1.6) 12/09/20 12/09/20 Range/Units 06:20 07:10 WBC (4.0-11.0) K/uL RBC (4.30-5.90) M/uL Hgb (12.0-16.0) g/dL Hct (36.0-46.0) % MCV (80.0-98.0) fL MCH (27.0-32.0) pg MCHC (31.0-37.0) g/dL RDW Std Deviation (28.0-62.0) fl RDW Coeff of Tulio (11.0-15.0) % Plt Count (150-400) K/uL MPV (7.40-12.00) fL Add Manual Diff Neutrophils % (Manual) (48.0-80.0) % Band Neutrophils % % Lymphocytes % (Manual) (16.0-40.0) % Monocytes % (Manual) (0.0-15.0) % Nucleated RBC % /100WBC Absolute Seg Neuts (1.4-5.7) Band Neutrophils # Lymphocytes # (Manual) (0.6-2.4) Monocytes # (Manual) (0.0-0.8) Nucleated RBCs # K/uL ABG pH 7.49 H (7.35-7.45) ABG pCO2 29 L (35-45) mmHG ABG pO2 46 L (80-105) mmHG ABG HCO3 22 (22-26) mEq/L ABG Total CO2 19.8 L (23-27) mmol/L ABG Base Excess 0.0 (-2.0-3.0) Sodium (136-145) mmol/L Potassium (3.5-5.1) mmol/L Chloride (98-107) mmol/L Carbon Dioxide (21.0-32.0) mmol/L BUN (7.0-18.0) mg/dL Creatinine (0.6-1.0) mg/dL Est Cr Clr Drug Dosing mL/min Estimated GFR (MDRD) ml/min Glucose (74-106) mg/dL POC Glucose 237 H (70-99) mg/dL Calcium (8.5-10.1) mg/dL Magnesium (1.8-2.4) mg/dL Total Bilirubin (0.2-1.0) mg/dL AST (15-37) IU/L ALT (14-63) IU/L Alkaline Phosphatase (46-116) U/L C-Reactive Protein (0.00-0.90) mg/dL Total Protein (6.4-8.2) g/dL Albumin (3.4-5.0) g/dL Globulin (2.6-4.0) g/dL Albumin/Globulin Ratio (0.9-1.6) [facility] Results - Last 24 hrs: Microbiology 12/05/20 16:30 Aerobic Blood Culture - Preliminary Blood - Venous - Lab Draw NO GROWTH AFTER 3 DAYS Anaerobic Blood Culture - Preliminary NO GROWTH AFTER 3 DAYS 12/05/20 16:10 Aerobic Blood Culture - Preliminary Blood - Venous NO GROWTH AFTER 3 DAYS Anaerobic Blood Culture - Preliminary NO GROWTH AFTER 3 DAYS Med Orders - Current: Current Medications Acetaminophen (Acetaminophen 325 Mg Tab) 650 mg PO Q4H PRN PRN Reason: Pain (Mild 1-3)/fever Albuterol/Ipratropium (Albuterol/Ipratropium 3.0-0.5 Mg/3 Ml Neb Soln) 3 ml NEB Q4HRRT PRN PRN Reason: Shortness of Breath Last Admin: 12/06/20 13:24 Dose: 3 ml Documented by: Albuterol/Ipratropium (Albuterol/Ipratropium 4 Gm Inhalation [place]) 0 gm INH Q4H [facility] Last Admin: 12/09/20 12:30 Dose: 1 puff Documented by: Cholecalciferol (Cholecalciferol (Vitamin D3) 25 Mcg Tab) 100 mcg PO DAILY [facility] Last Admin: 12/09/20 09:06 Dose: 100 mcg Documented by: Dexamethasone (Dexamethasone 4 Mg Tab) 6 mg PO DAILY [facility] Last Admin: 12/09/20 09:04 Dose: 6 mg Documented by: Dextrose/Water (50% Dextrose In Water 50 Ml Syringe) 50 ml IVPUSH ASDIRECTED PRN PRN Reason: Hypoglycemia Enoxaparin Sodium (Enoxaparin 30 Mg/0.3 Ml Syringe) 30 mg SUBCUT Q24H [facility] Last Admin: 12/08/20 20:56 Dose: 30 mg Documented by: Glucagon (Glucagon,Human Recombinant 1 Mg Vial) 1 mg IM ASDIRECTED PRN PRN Reason: Hypoglycemia Remdesivir 100 mg/ Sodium (Chloride) 100 mls @ 100 mls/hr IV Q24H [facility] Stop: 12/09/20 19:59 Last Admin: 12/08/20 18:03 Dose: 100 mls/hr Documented by: Pantoprazole Sodium 40 mg/ (Sodium Chloride) 10 mls @ 300 mls/hr IV Q24H [facility] Last Admin: 12/09/20 09:05 Dose: 300 mls/hr Documented by: Ceftriaxone Sodium/Dextrose 1 (gm/ Premix) 50 mls @ 100 mls/hr IV Q24H [facility] Last Admin: 12/08/20 16:26 Dose: 100 mls/hr Documented by: Azithromycin 500 mg/ Sodium (Chloride) 250 mls @ 250 mls/hr IV Q24H [facility] Last Admin: 12/08/20 19:25 Dose: 250 mls/hr Documented by: Propofol (Diprivan 100 Ml) 100 mls @ 1.751 mls/hr IV TITRATE [facility]IANA; Protocol Last Titration: 12/09/20 13:40 Dose: 30 mcg/kg/min, 10.508 mls/hr Documented by: Fentanyl Citrate (Fentanyl 2500 Mcg In Ns 250 Ml (10 Mcg/Ml)) 2,500 mcg in 250 mls @ IV TITRATE PRN; Protocol PRN Reason: Pain (severe 7-10) Fentanyl Citrate (Fentanyl 2500 Mcg In Ns 250 Ml (10 Mcg/Ml)) 250 mls @ 5.8 mls/hr IV ONETIME PRN PRN Reason: Sedation Insulin Aspart (Insulin Aspart 100 Units/Ml 3 Ml Pen) 0 unit SUBCUT TIDAC DIANA; Protocol Last Admin: 12/09/20 13:13 Dose: Not Given Documented by: Polyethylene Glycol (Polyethylene Glycol 3350 Powder 17 Gm Packet) 17 gm PO DAILY PRN PRN Reason: Constipation Sodium Chloride (Sodium Chloride 0.9% 10 Ml Syringe) 10 ml FLUSH ASDIRECTED PRN PRN Reason: Keep Vein Open Last Admin: 12/05/20 16:41 Dose: 10 ml Documented by: Sodium Chloride (Sodium Chloride 0.9% 2.5 Ml Syringe) 2.5 ml FLUSH ASDIRECTED PRN PRN Reason: Keep Vein Open Last Admin: 12/05/20 16:41 Dose: 2.5 ml Documented by: Sodium Chloride (Sodium Chloride 0.9% 10 Ml Syringe) 10 ml FLUSH ASDIRECTED PRN PRN Reason: Keep Vein Open Sodium Chloride (Sodium Chloride 0.9% 2.5 Ml Syringe) 2.5 ml FLUSH ASDIRECTED PRN PRN Reason: Keep Vein Open Discontinued Medications Dexamethasone (Dexamethasone 4 Mg Tab) 6 mg PO ONETIME ONE Stop: 12/05/20 17:38 Last Admin: 12/05/20 19:27 Dose: 6 mg Documented by: Enoxaparin Sodium (Enoxaparin 40 Mg/0.4 Ml Syringe) 40 mg SUBCUT Q12HR [facility] Last Admin: 12/06/20 01:55 Dose: Not Given Documented by: Enoxaparin Sodium (Enoxaparin 40 Mg/0.4 Ml Syringe) 40 mg SUBCUT BEDTIME [facility] Stop: 12/05/20 21:01 Last Admin: 12/05/20 20:51 Dose: 40 mg Documented by: Furosemide (Furosemide 20 Mg/2 Ml Vial) 20 mg IVPUSH ONETIME ONE Stop: 12/05/20 17:41 Last Admin: 12/05/20 19:26 Dose: 20 mg Documented by: Sodium Chloride (Normal Saline) 1,000 mls @ 1,000 mls/hr IV BOLUS ONE; Protocol Stop: 12/05/20 17:15 Last Admin: 12/05/20 16:40 Dose: 1,000 mls/hr Documented by: Ceftriaxone Sodium/Dextrose 1 (gm/ Premix) 50 mls @ 100 mls/hr IV ONETIME ONE Stop: 12/05/20 16:47 Last Admin: 12/05/20 16:41 Dose: 100 mls/hr Documented by: Sodium Chloride (Normal Saline) 1,000 mls @ 800 mls/hr IV .Bolus ONE Stop: 12/05/20 17:47 Last Admin: 12/05/20 18:07 Dose: Not Given Documented by: Remdesivir 200 mg/ Sodium (Chloride) 250 mls @ 250 mls/hr IV ONETIME ONE Stop: 12/05/20 17:36 Last Admin: 12/05/20 19:24 Dose: 250 mls/hr Documented by: Tocilizumab 400 mg/ Sodium (Chloride) 120 mls @ 120 mls/hr IV ONETIME ONE Stop: 12/06/20 17:14 Last Admin: 12/06/20 16:25 Dose: 120 mls/hr Documented by: Sodium Chloride (Normal Saline) 1,159 mls @ 579.5 mls/hr IV ASDIRECTED DIANA; Protocol Stop: 12/06/20 21:55 Last Admin: 12/06/20 20:11 Dose: 579.5 mls/hr Documented by: Norepinephrine Bitartrate (Norepinephr-0.9% Nacl 4 Mg/250) Confirm Administered Dose 4 mg in 250 mls @ as directed IV .STK-MED ONE Stop: 12/09/20 12:10 Last Admin: 12/09/20 13:46 Dose: Not Given Documented by: Propofol (Diprivan 100 Ml) Confirm Administered Dose 100 mls @ as directed .ROUTE .STK-MED ONE Stop: 12/09/20 12:11 Last Admin: 12/09/20 13:46 Dose: Not Given Documented by: - Exam Extremities: No Pedal Edema Discharge Operative/Procedures - Procedures Performed Intubation Indication: Other (Covid Pneumonia with sats in 80s) <Johan Egan - Last Filed: 12/10/20 14:05> Discharge Summary - Referral to Home Health Primary Care Physician: Michael Palacios MD - Patient Data Vitals - Most Recent: Last Vital Signs Temp 36.7 C 12/09/20 12:00 Pulse 62 12/07/20 07:00 Resp 27 H 12/09/20 15:00 BP 114/67 12/09/20 15:00 Pulse Ox 89 L 12/09/20 15:00 [facility] Results - Last 24 hrs: Microbiology 12/05/20 16:30 Aerobic Blood Culture - Preliminary Blood - Venous - Lab Draw NO GROWTH AFTER 4 DAYS Anaerobic Blood Culture - Preliminary NO GROWTH AFTER 4 DAYS 12/05/20 16:10 Aerobic Blood Culture - Preliminary Blood - Venous NO GROWTH AFTER 4 DAYS Anaerobic Blood Culture - Preliminary NO GROWTH AFTER 4 DAYS Med Orders - Current: Current Medications Discontinued Medications Acetaminophen (Acetaminophen 325 Mg Tab) 650 mg PO Q4H PRN PRN Reason: Pain (Mild 1-3)/fever Albuterol/Ipratropium (Albuterol/Ipratropium 3.0-0.5 Mg/3 Ml Neb Soln) 3 ml NEB Q4HRRT PRN PRN Reason: Shortness of Breath Last Admin: 12/06/20 13:24 Dose: 3 ml Documented by: Albuterol/Ipratropium (Albuterol/Ipratropium 4 Gm Inhalation [place]) 0 gm INH Q4H [facility] Last Admin: 12/09/20 12:30 Dose: 1 puff Documented by: Cholecalciferol (Cholecalciferol (Vitamin D3) 25 Mcg Tab) 100 mcg PO DAILY [facility] Last Admin: 12/09/20 09:06 Dose: 100 mcg Documented by: Dexamethasone (Dexamethasone 4 Mg Tab) 6 mg PO ONETIME ONE Stop: 12/05/20 17:38 Last Admin: 12/05/20 19:27 Dose: 6 mg Documented by: Dexamethasone (Dexamethasone 4 Mg Tab) 6 mg PO DAILY [facility] Last Admin: 12/09/20 09:04 Dose: 6 mg Documented by: Dextrose/Water (50% Dextrose In Water 50 Ml Syringe) 50 ml IVPUSH ASDIRECTED PRN PRN Reason: Hypoglycemia Enoxaparin Sodium (Enoxaparin 40 Mg/0.4 Ml Syringe) 40 mg SUBCUT Q12HR [facility] Last Admin: 12/06/20 01:55 Dose: Not Given Documented by: Enoxaparin Sodium (Enoxaparin 40 Mg/0.4 Ml Syringe) 40 mg SUBCUT BEDTIME [facility] Stop: 12/05/20 21:01 Last Admin: 12/05/20 20:51 Dose: 40 mg Documented by: Enoxaparin Sodium (Enoxaparin 30 Mg/0.3 Ml Syringe) 30 mg SUBCUT Q24H [facility] Last Admin: 12/08/20 20:56 Dose: 30 mg Documented by: Furosemide (Furosemide 20 Mg/2 Ml Vial) 20 mg IVPUSH ONETIME ONE Stop: 12/05/20 17:41 Last Admin: 12/05/20 19:26 Dose: 20 mg Documented by: Glucagon (Glucagon,Human Recombinant 1 Mg Vial) 1 mg IM ASDIRECTED PRN PRN Reason: Hypoglycemia Sodium Chloride (Normal Saline) 1,000 mls @ 1,000 mls/hr IV BOLUS ONE; Protocol Stop: 12/05/20 17:15 Last Admin: 12/05/20 16:40 Dose: 1,000 mls/hr Documented by: Ceftriaxone Sodium/Dextrose 1 (gm/ Premix) 50 mls @ 100 mls/hr IV ONETIME ONE Stop: 12/05/20 16:47 Last Admin: 12/05/20 16:41 Dose: 100 mls/hr Documented by: Sodium Chloride (Normal Saline) 1,000 mls @ 800 mls/hr IV .Bolus ONE Stop: 12/05/20 17:47 Last Admin: 12/05/20 18:07 Dose: Not Given Documented by: Remdesivir 200 mg/ Sodium (Chloride) 250 mls @ 250 mls/hr IV ONETIME ONE Stop: 12/05/20 17:36 Last Admin: 12/05/20 19:24 Dose: 250 mls/hr Documented by: Remdesivir 100 mg/ Sodium (Chloride) 100 mls @ 100 mls/hr IV Q24H [facility] Stop: 12/09/20 19:59 Last Admin: 12/08/20 18:03 Dose: 100 mls/hr Documented by: Pantoprazole Sodium 40 mg/ (Sodium Chloride) 10 mls @ 300 mls/hr IV Q24H [facility] Last Admin: 12/09/20 09:05 Dose: 300 mls/hr Documented by: Ceftriaxone Sodium/Dextrose 1 (gm/ Premix) 50 mls @ 100 mls/hr IV Q24H [facility] Last Admin: 12/08/20 16:26 Dose: 100 mls/hr Documented by: Azithromycin 500 mg/ Sodium (Chloride) 250 mls @ 250 mls/hr IV Q24H [facility] Last Admin: 12/08/20 19:25 Dose: 250 mls/hr Documented by: Tocilizumab 400 mg/ Sodium (Chloride) 120 mls @ 120 mls/hr IV ONETIME ONE Stop: 12/06/20 17:14 Last Admin: 12/06/20 16:25 Dose: 120 mls/hr Documented by: Sodium Chloride (Normal Saline) 1,159 mls @ 579.5 mls/hr IV ASDIRECTED [facility]; Protocol Stop: 12/06/20 21:55 Last Admin: 12/06/20 20:11 Dose: 579.5 mls/hr Documented by: Norepinephrine Bitartrate (Norepinephr-0.9% Nacl 4 Mg/250) Confirm Administered Dose 4 mg in 250 mls @ as directed IV .STK-MED ONE Stop: 12/09/20 12:10 Last Admin: 12/09/20 13:46 Dose: Not Given Documented by: Propofol (Diprivan 100 Ml) Confirm Administered Dose 100 mls @ as directed .ROUTE .STK-MED ONE Stop: 12/09/20 12:11 Last Admin: 12/09/20 13:46 Dose: Not Given Documented by: Propofol (Diprivan 100 Ml) 100 mls @ 1.751 mls/hr IV TITRATE [facility]; Protocol Last Titration: 12/09/20 13:40 Dose: 30 mcg/kg/min, 10.508 mls/hr Documented by: Fentanyl Citrate (Fentanyl 2500 Mcg In Ns 250 Ml (10 Mcg/Ml)) 250 mls @ 5.8 mls/hr IV ONETIME PRN PRN Reason: Sedation Insulin Aspart (Insulin Aspart 100 Units/Ml 3 Ml Pen) 0 unit SUBCUT TIDAC [facility]; Protocol Last Admin: 12/09/20 13:13 Dose: Not Given Documented by: Polyethylene Glycol (Polyethylene Glycol 3350 Powder 17 Gm Packet) 17 gm PO DAILY PRN PRN Reason: Constipation Sodium Chloride (Sodium Chloride 0.9% 10 Ml Syringe) 10 ml FLUSH ASDIRECTED PRN PRN Reason: Keep Vein Open Last Admin: 12/05/20 16:41 Dose: 10 ml Documented by: Sodium Chloride (Sodium Chloride 0.9% 2.5 Ml Syringe) 2.5 ml FLUSH ASDIRECTED PRN PRN Reason: Keep Vein Open Last Admin: 12/05/20 16:41 Dose: 2.5 ml Documented by: Sodium Chloride (Sodium Chloride 0.9% 10 Ml Syringe) 10 ml FLUSH ASDIRECTED PRN PRN Reason: Keep Vein Open Sodium Chloride (Sodium Chloride 0.9% 2.5 Ml Syringe) 2.5 ml FLUSH ASDIRECTED PRN PRN Reason: Keep Vein Open - Free Text/Narrative Note: I have seen and examined the patient. I have discussed findings and treatment plan with the resident. I agree with the assessment and plan as outlined in the following note.
[2020-12-09 15:33] VITALS: BP 114/67
== END 2020-12-09 15:00 | DRG 871 ==
LOC: MW.ED 15:42 → MW.MS 17:38 → MW.ICU 12-06 15:36
PROVIDERS: ADMIT Student in an Organized Health Care Education/Training Program; ATTEND Student in an Organized Health Care Education/Training Program
PROC: XW033E5 Introduction of Remdesivir Anti-infective into Peripheral Vein, Percutaneous Approach, New Technology Group 5 (ICD-10-PCS; principal; 2020-12-05)
PROC: XW033F5 Introduction of Other New Technology Therapeutic Substance into Peripheral Vein, Percutaneous Approach, New Technology Group 5 (ICD-10-PCS; 2020-12-05)
DX: A41.89 Other specified sepsis (principal); J84.9 Interstitial pulmonary disease, unspecified; U07.1 COVID-19; J96.90 Respiratory failure, unspecified, unspecified whether with hypoxia or hypercapnia; Z79.899 Other long term (current) drug therapy; J12.82 Pneumonia due to coronavirus disease 2019; E86.0 Dehydration
CPT/HCPCS: 36415; 36600; 71045; 80053; 82248; 82306; 82803; 83605; 83735; 83880; 84484; 85025; 87040 ×2; 93005; J0696; J7030; U0002; 51702; 81001; 82947; 83036; 86140; 94002; 94640; 94660; 99221; 99232; 99233; 99239; 99291; A9270-GY; C9113; J0330; J0456; J1650; J1815-GY; J1940; J2704; J7050; J7620-GY; J8540; Q0249